=== PATIENT | female | born 2000 | race Caucasian/White ===

== ENCOUNTER → 2018-04-23 14:41 | Outpatient (CLI) | payer MEDICAID, SELFPAY ==
[2016-12-05 22:18] VITALS: BMI 23.5
[2018-04-23 18:14] LABS: Vitamin D,25 Hydroxy 19.9 ng/mL (29.95-100.01)
[2018-04-23 20:42] LABS: Chlamydia Trachomatis by PCR Negative (Negative); Neisserai gonorrhoeae by PCR Negative (Negative); Probe Check PASS; Sample Adequacy Control PASS; Specimen Processing Control PASS
--- OUTSIDE RECORDS SUMMARY | 2018-06-09 20:23 | XMS RPT_ITS ---
:2000 Author Organization [facility] Care Team Providers Name Role Phone VERENICE OWENS Attending Unavailable REFERRED, SELF Referring Unavailable VERENICE OWENS Primary Care Unavailable Leighann Trujillo Attending Unavailable Verenice Owens Primary Care Unavailable Stu Andrade Attending Unavailable PROBLEMS PROBLEMS DATE TYPE CONDITION / CODE ATTENDING STATUS SOURCE 04/24/2018 Unknown Z11.3 - Encounter Colleen Trujillo for screening for [facility] infections with a [facility] Repository sexual mode of transmission / Z11.3(ICD-10) PROCEDURES PROCEDURES No Procedure Records FoundRESULTS RESULTS DISCHARGE INSTRUCTION Observed: 06/05/2018 Status: F Source: MEÑO 5:44 AM [facility] REPOSITORY [facility] Medical Records Department [address] [place] [address] Discharge Instruction 06/05/18 0035 MR#: [id number] Acct: [id number] Name: SAMANTHA PEACE I Rep #: [id number] : 2000 18 From: Stu Andrade MD PCP: Verenice Owens MD Status: DEP ER ED Disposition - Plan for ED Patient: Disposition: Home or Assisted Living Chief Complaint: Chest Pain Instructions: ED Chest Pain Costochondritis Referrals: Verenice Owens MD [Primary Care Provider] - What to do if you have Problems For any increased pain, shortness of breath, bleeding, nausea or vomiting, chest pain, or any unexpected problems, contact your Primary Care Provider. Call [facility] ([phone]) or report to the closest Emergency Room. Call 911 if necessary. 06/05/18 0544 <Electronically signed by Stu Andrade MD> Date Stu Andrade MD Cosigner Signature (If Indicated): Date CC: Verenice Owens MD EMERGENCY DEPARTMENT Observed: 06/05/2018 Status: F Source: NORRIS SUMMARY 5:44 AM [facility] Medical Records Department [address] [facility] [place] [address] Emergency Department Summary 06/05/18 0001 MR#: [id number] Acct: [id number] Name: SAMANTHA PEACE I Rep #: [id number] : 2000 18 From: Stu Andrade MD PCP: Verenice Owens MD Status: DEP ER - ER Visit Summary Date of Service: 06/05/18 Chief Complaint: [] Chest pain History of Present Illness: The patient is a 18 F complaining of chest pain since yesterday p.m. gradual onset at rest continuous stabbing sensation in her sternum region. Worsened by bending down. She tried Prilosec. No history of heart problems. She is never had a stress test. It hurts to push on it. Physical Examination: Vital signs reviewed General: Well-nourished well-developed Head: Normocephalic atraumatic Eyes: Pupils equal round and reactive to light extraocular movements intact ENT: TMs clear no hemotympanum no trauma Neck: Nontender full range of motion Cardiovascular: Regular rate rhythm no murmurs normal S1-S2 Respiratory: No distress clear to auscultation bilaterally chest tender to palpation sternal region. Abdomen: Soft nontender nondistended normal bowel sounds no masses Back: Nontender no CVA tenderness Extremities: Nontender active range of motion 4 extremities no trauma Skin: Normal color no trauma Neuro alert oriented cranial nerves II through XII intact normal strength sensation reflexes Test Results: [] Emergency Department Course and Treatment: [] EKG shows sinus rhythm at a rate of 100 without ischemic findings. Chest x-ray normal. CBC negative. Patient given Toradol IV. Elect lites unremarkable except for potassium 3.3. Troponin negative. Patient felt better after treatment. At this time is that she has costochondritis or nonspecific chest pain. I do not feel she needs to be admitted. Her heart score is low. She will follow-up as an outpatient Treatment Plan: [] Disposition: [] Impression: [] Costochondritis This note was generated with ChartITright dictation software. It may contain incorrect words, spelling, and punctuation that were not noted in review of the chart prior to signing ED Disposition - Plan for ED Patient: Chief Complaint: Chest Pain Referrals: Verenice Owens MD [Primary Care Provider] - What to do if you have Problems For any increased pain, shortness of breath, bleeding, nausea or vomiting, chest pain, or any unexpected problems, contact your Primary Care Provider. Call [facility] ([phone]) or report to the closest Emergency Room. Call 911 if necessary. 06/05/18 0544 <Electronically signed by Stu Andrade MD> Date Stu Andrade MD Cosigner Signature (If Indicated): Date CC: Verenice Owens MD CBC W/DIFF, AUTOMATED Collected: 06/04/2018 Status: F Source: NORRIS 11:40 PM [facility] REPOSITORY TYPE CODE TESTS RESULT OUT OF RANGE REFERENCE UNITS LAB L100.1000 4.4-11.0 K/mm3 Normal WBC 9.1 LAB L100.1200 4.2-5.4 M/mm3 Normal RBC 4.34 LAB L100.1300 12.0-15.0 g/dl Normal HGB 12.5 LAB L100.1400 37-47 % Normal HCT 37.3 LAB L100.1500 81-99 fL Normal MCV 85.9 LAB L100.1600 27.0-32.0 pg Normal MCH 28.8 LAB L100.1700 32-36 g/gl Normal MCHC 33.5 LAB L100.1810 11.6-14.6 % Normal RDW CV 13.4 LAB L100.1820 35.1-43.9 fl Normal RDW SD 41.7 LAB L100.1900 150-450 K/mm3 Normal PLT 263 LAB L100.2000 6.2-12.0 fl Normal MPV 8.8 LAB L100.2100 47-70 % Normal NEUT% 57.7 LAB L100.2200 19-41 % Normal LY% 34.1 LAB L100.2300 0-10 % Normal MONO% 6.2 LAB L100.2400 0-5 % Normal EO% 1.4 LAB L100.2500 0-1 % Normal BASO% 0.5 LAB L100.2550 0.0-0.9 % Normal IM GRAN % 0.100 Result Comment: IG% - Immature Granulocytes (promyelocytes, myelocytes and metamyelocytes) > 1% indicates that a LEFT SHIFT is Present. LAB L100.2620 2.0-7.7 X10 3/uL Normal Absolute Neut 5.3 LAB L100.2720 0.83-4.51 X10 3/ul Normal Absolute Lymph 3.12 Performed By: #### L100.0100, L500.2500, L501.4010 #### [facility] [address] [place], [address] BASIC METABOLIC Collected: 06/04/2018 Status: F Source: MEÑO HORNE (BMP) 11:40 PM [facility] REPOSITORY TYPE CODE TESTS RESULT OUT OF RANGE REFERENCE UNITS LAB L501.0100 74-106 mg/dL Normal GLU 88 Result Comment: Please note revised GLUCOSE reference range effective 2017. LAB L501.1000 7-18 mg/dL Normal BUN 9 LAB L501.1100 0.55-1.02 mg/dL Normal CREAT,SERUM 0.64 Result Comment: The validity of the calculated GFR AND GFRAA in patients over 70 years has not been determined. Clinical correlation is essential. LAB L501.1110 >60 mL/min Normal EST GFR 125 Result Comment: Non- GFR Calc LAB L501.1115 >60 mL/min Normal EST GFR - AA 152 Result Comment: GFR Calc LAB L501.1255 ml/min Normal Estimated CRCL 146.54 LAB L501.1300 10-20 RATIO BUN/CRE Normal 14.0 LAB L501.2200 8.5-10 mg/dL .1 CA Normal 8.9 LAB L501.5300 136-14 mmol/L 5 NA Normal 139 LAB L501.5600 3.5-5. mmol/L Low 1 K 3.3 LAB L501.5900 98-107 mmol/L High CL 108 LAB L501.6100 21.0-3 mmol/L 2.0 CO2 Normal 23.0 LAB L501.6200 5-15 GAP Normal 8 Performed By: #### L100.0100, L500.2500, L501.4010 #### [facility] [address] [place], [address] TROPONIN-I Collected: 06/04/2018 Status: F Source: MEÑO 11:40 PM [facility] REPOSITORY TYPE CODE TESTS RESULT OUT OF RANGE REFERENCE UNITS LAB L501.4010 <0.045 ng/mL Normal < 0.015 TROPONIN-I Result Comment: TROPONIN-I EXPECTED VALUES <0.045 Negative 0.045 - 0.590 Consistent with Cardiac Damage > OR = 0.600 Critical Value Not every elevated troponin is indicative of MN. These values should be used with clinical judgement in examining the patient's clinical picture for diagnosis. To establish a diagnosis of MN versus myocardial injury, there must be a demonstrated rise and/or fall in the troponin values, in addition to ischemic symptoms, EKG changes, new regional wall motion abnormality, and/or angiographical evidence. PLEASE NOTE: REFERENCE RANGES EDITED 17 Performed By: #### L100.0100, L500.2500, L501.4010 #### [facility] [address] [place], [place], [address] CHEST 1 VIEW Observed: 06/04/2018 Status: F Source: NORRIS (PORTABLE) 10:36 PM [facility] REPOSITORY [facility] Imaging Services [address] [place] [address] Chest 1 View (Portable) MR#: [id number] Acct: [id number] Name: SAMANTHA PEACE I Rep #: [id number] : 2000 F 18 From: Jessica Chavez MD PCP: Verenice Owens MD Status: PRE ER Study: Chest 1 View (Portable) Date of Exam: 06/04/18 Exam# [id number] Ordering Dr: Provider,Ed P. STUDY: X-RAY CHEST REASON FOR EXAM: Female, 18 years old. Chest pain TECHNIQUE: Single frontal view of the chest. COMPARISON: None. FINDINGS: The lungs are clear and expanded. There is no demonstrated pleural abnormality. Normal size heart. Normal mediastinum and vincent. Normal visualized pulmonary arteries. Normal visualized aortic arch and descending thoracic aorta. Normal visualized thoracic spine. Normal visualized ribs, clavicles, and shoulders. There is no demonstrated abnormality of the visualized soft tissue structures of the upper abdomen. RAD/Chest 1 View (Portable) IMPRESSION: No acute cardiopulmonary process. Electronically Signed: Jessica Chavez MD at 22:50 EST Tel , Service support , CC: ED PHYSICIAN PROVIDER; Verenice Owens MD Emr Analyst: Signed COMPLETE BLOOD COUNT Collected: 05/28/2018 Status: F Source: BRIANNE 2:22 PM [facility] REPOSITORY Order Comment: With differential. Is this specimen being sent to an external lab?->No TYPE CODE TESTS RESULT OUT OF REFERENCE UNITS RANGE LAB IWBC(LOINC 4.5-11.0 10E9/L ) WBC 7.8 LAB NRBC%(LOIN -1.0-0.0 % C) Nucleated RBC % 0.0 LAB RBC(LOINC) 4.00-4.90 10E12/L RBC 4.66 LAB IHGB(LOINC 12.0-15.0 g/dl ) Hemoglobin 13.6 LAB HCT(LOINC) 36.0-44.0 % Hematocrit 40.2 LAB MCV(LOINC) 80.0-100.0 fl MCV 86.3 LAB MCH(LOINC) 26.0-34.0 pg MCH 29.2 LAB MCHC(LOINC 31.0-37.0 % ) MCHC 33.8 LAB RDW(LOINC) 0.0-14.4 % RDW 13.1 LAB PLT(LOINC) 150-450 10E9/L Platelets 307 LAB MPV(LOINC) fl MPV 10.0 Result Comment: MPV is platelet range and age dependent LAB CMPLT(LOINC) NA Differential Complete Automated LAB %REYNA(LOINC) 35.0-6 % 6.0 % Neutrophils 63.5 LAB %LYM(LOINC) 24.0-4 % 4.0 % Lymphocytes 27.9 LAB %MONO(LOINC) 3.00-6 % .00 % Monocytes 5.40 LAB %EOS(LOINC) 0.00-3 % .00 % Eosinophils 1.90 LAB %BASO(LOINC) 0.00-1 % .00 % Basophils 1.00 LAB REYNA#(LOINC) NA Neutrophil # 5.0 LAB IG%(LOINC) % % Immature 0.30 granulocyte Result Comment: Immature Granulocyte Percent includes promyelocytes, myelocytes, and metamyelocytes. IG% > 1.0 indicates a left shift is present. With automated differentials, bands are included in the neutrophil count and not in the Immature Granulocyte Percent. Performed By: #### CBC #### [place] [address] LIPID PANEL Collected: 05/28/2018 Status: F Source: MURDOCK 2:22 PM [facility] REPOSITORY Order Comment: With differential. Is this specimen being sent to an external lab?->No TYPE CODE TESTS RESULT OUT OF REFERENCE UNITS RANGE LAB CHOL(LOINC 0-189 mg/dL ) Cholesterol 130 Result Comment: Acceptable <190 mg/dL Borderline 190-224 mg/dL Abnormal >224 mg/dL NOTE: Reference Range change effective 04/16/18 LAB TRIG(LOINC) 0-114 mg/dL Triglyceride 88 Result Comment: Acceptable <115 mg/dl Borderline 115-149 mg/dl Abnormal >149 mg/dl NOTE: Reference Range change effective 04/16/18 Result invalid if not a fasting specimen. LAB HDL(LOINC) mg/dL HDL Cholesterol 40 Result Comment: Acceptable >45 mg/dL Borderline 40-44 mg/dL Abnormal <40 mg/dL NOTE: Reference Range change effective 04/16/18 LAB LDL(LOINC) 0-119 mg/dl LDL Cholesterol 72 Result Comment: Acceptable <120 mg/dL Borderline 120-159 mg/dL Abnormal >159 mg/dl NOTE: Reference Range change effective 04/16/18 LAB NHDL(LOINC) 0-149 mg/dL Non-HDL Cholesterol 90 Result Comment: Acceptable <150 mg/dL Borderline 150-189 mg/dL Abnormal >189 mg/dl Performed By: #### LIPID #### [place] [address] T4,FREE Collected: 05/28/2018 Status: F Source: MURDOCK 2:22 PM [facility] REPOSITORY Order Comment: With differential. Is this specimen being sent to an external lab?->No TYPE CODE TESTS RESULT OUT OF RANGE REFERENCE UNITS LAB T4FR(LOINC) 0.8-1.4 ng/dL T4,Free 1.3 Result Comment: New Reference Ranges - effective 03/03/09. Performed By: #### T4FR #### [place] [id number] TSH Collected: 05/28/2018 Status: F Source: BRIANNE 2:22 PM [facility] REPOSITORY Order Comment: With differential. Is this specimen being sent to an external lab?->No TYPE CODE TESTS RESULT OUT OF RANGE REFERENCE UNITS LAB TSH(LOINC) 0.350-5.500 uIU/mL TSH 0.662 Performed By: #### TSH #### [facility] [address] [place], [place] [address] [address] PROGRESS NOTE Observed: 05/28/2018 Status: COMPLETED Source: BRIANNE 1:20 PM [facility] REPOSITORY Patient ID: Samantha Peace is a 18 y.o. female. Her chief complaint(s) include: 18 YEAR WELL CHILD (Skin problems. Anxiety/depression. Stomach problems.) Assessment 1. Routine general medical examination at a health care facility 2. Adjustment disorder with mixed anxiety and depressed mood 3. Gastroesophageal reflux disease without esophagitis 4. Weight gain Plan Samantha was seen today for 18 year well child. Diagnoses and all orders for this visit: Routine general medical examination at a health care facility - Behavioral/Emotional Assessment w Score - PHQ-9 - Lipid panel (Clinic Collect) Adjustment disorder with mixed anxiety and depressed mood - citalopram (CELEXA) 10 MG tablet; Take 1 Tab (10 mg) by mouth daily - Venipuncture - T4, free (Clinic Collect) - TSH (Clinic Collect) - Complete Blood Count with Diff (Clinic Collect) Gastroesophageal reflux disease without esophagitis - omeprazole (PRILOSEC) 20 MG capsule; Take 1 Cap (20 mg) by mouth daily Weight gain - T4, free (Clinic Collect) - TSH (Clinic Collect) Return in about 1 year (around 05/28/2019) for well check. Discussed getting back on medicine. Discussed needing counseling. Subjective HPI Comments: Working at [employer] 50 hours. Lives by self. Mom just got a liver transplant. Stomach hurts when she eats. No vomiting. Will have diarrhea with lots of dairy or fried food. Exhausted all the time. She is unaccompanied. 18 YEAR WELL CHILD Home: Samantha eats meals with family, has an adult to turn to for help and is permitted and able to make independent decisions. Education: She Is in the work force. Eating: Samantha eats breakfast. Samantha does not eat regular meals including fruits and vegetables, does not limit fast food, does not drink non-sweetened liquids and does not have a calcium source. Activities & Sports: She has friends and has a job. Drugs: She uses drugs (minimal) and uses alcohol (minimal). She does not use tobacco. Safety: She has a violence free home, has peer relationships free from violence and uses seat belt. Sex: Samantha is sexually active. Typically, she uses Depo-Provera injections as her current contraceptive method. Suicidality: She has depression and has anxiety. She has no suicidal ideation and has no homicidal ideation. Menstruation Menstruation: irregular periods (on depo) Output Urine and Stool Pattern: Urine and Stool Pattern: Normal stool pattern, normal urine pattern. Stool Consistency: soft Sleep Hours of sleep at a time: 8 Teen Anticipatory Guidance The following anticipatory guidance was reviewed during the visit: Nutrition: limit junk food/fast food and soft drinks. Safety: home safety. Health: age appropriate sleep habits, avoid situations where drugs and alcohol are present, learn about self and strengths and recognize and deal with stress. Screenings Previous Vaccine Reactions: No. Life events information was reviewed-no referral needed Hearing Vision Concerns: The caregiver has no concerns about the patient's hearing. The caregiver has no concerns about the patient's vision. Primary Care Review of Systems Objective Vital Signs 05/28/18 1312 BP: 139/78 Pulse: 104 Weight: 85.3 kg Height: 175.3 cm Body mass index is 27.77 kg/m . Physical Exam Constitutional: She appears well. She is active. No distress. HENT: Head: Atraumatic. Right Ear: Tympanic membrane and external ear normal. Left Ear: Tympanic membrane and external ear normal. Nose: Nose normal. Mouth/Throat: Mucous membranes are moist. Dentition is normal. Oropharynx is clear. Eyes: Conjunctivae and EOM are normal. No strabismus. Pupils are equal, round, and reactive to light. Neck: Normal range of motion. Neck supple. Thyroid normal. No neck adenopathy. Cardiovascular: Normal rate, regular rhythm, S1 normal and S2 normal. Pulses are palpable. Heart murmur not heard. Pulmonary/Chest: Breath sounds normal. No respiratory distress. Exhibits no deformity. Abdominal: Soft. Bowel sounds are normal. She exhibits no distension and no mass. There is no hepatosplenomegaly. There is no tenderness. Musculoskeletal: Normal range of motion. Back: She exhibits no scoliosis. Neurological: She is alert. She has normal strength. She exhibits normal muscle tone. Gait normal. Skin: No rash noted. No pallor. Skin is warm. Psychiatric: A little tearful. Vitals reviewed: Blood pressure 139/78, pulse 104, height 175.3 cm, weight 85.3 kg. VITAMIN D,25 HYDROXY Collected: 04/23/2018 Status: F Source: NORRIS 2:43 PM [facility] REPOSITORY TYPE CODE TESTS RESULT OUT OF REFERENCE UNITS RANGE LAB L506.1000 29.95-100.01 ng/mL Low Vitamin D 19.9 25-OH Result Comment: Vitamin D 25(OH) Status Range Deficiency <20 ng/mL (50nmol/L) Insuffciency 20 - 30 ng/mL (50 - 75 nmol/L) Sufficiency 30 - 100 ng/mL (75 - 250 nmol/L) Toxicity >100 ng/mL (>250 nmol/L) Performed By: #### L506.1000 #### [facility] [address] [place], [address] CT/NG [facility] BY PCR Collected: 04/23/2018 Status: F Source: NORRIS 2:10 PM [facility] REPOSITORY TYPE CODE TESTS RESULT OUT OF RANGE REFERENCE UNITS LAB L8200.2100 Negative Normal Chlam Negative Trac PCR LAB L8200.2200 Negative Normal NG by Negative PCR Performed By: #### L8200.2000 #### [facility] [address] [place], [address] ALLERGIES ALLERGIES DATE TYPE / CODE NAME / CODE REACTION SEVERITY SOURCE 06/04/2018 Drug No Known Unknown [place] Allergy/674571007(S Allergies/F0019 [facility]) 61947(RXNORM) Hospital Repository Miscellaneous NO KNOWN [place] Allergy/265691934(S ALLERGIES [facility]) Hospital Repository ENCOUNTERS ENCOUNTERS ADMIT/DISCHARGE ACCOUNT ADMITTING ENCOUNTER LOCATION SOURCE NUMBER CLASS 06/04/2018/06/05/19 [id number] Emergency [facility] ing:ED Repository 05/28/2018/05/28/19 [id number] Ambulatory Building:[address] Repository 04/23/2018 [id number] [facility] ing:WOBLAB Repository PAYERS PAYERS ENCOUNTER GUARANTOR PAYER SUBSCRIBER SOURCE 06/04/2018 SAMANTHA I YOUNG Primary SAMANTHA I MALACHI [address] Insurance:CARESOURCEP IDOB: [facility] Number: [id number] Hospital [address]Qhn: [phone] [id number] Repository [phone] () Date:2018-06-04 [address]ATTN: [place] [address]KW: 06/04/2018 Secondary NOT GIVENUNK [place] Insurance:SELF [facility]Y [facility]: Effective Repository Date:2018-06-04 05/28/2018 SAMANTHA YOUNG Primary SAMANTHA YOUNG [facility] IDOB: Insurance:CARESOURCEP IDOB: [facility] Number: [id number] Repository [facility] [id number] [place], [place] Date: [place], [place] [address]Xib: [phone] () 05/28/2018 Secondary SAMANTHA Ramos [facility] Insurance:CARESOURCEP IDOB: [facility] Number: [id number] Repository [id number] [facility] Date: [place] [address] 04/23/2018 SAMANTHA YOUNG [address] Primary SAMANTHA YOUNG [address] [place] Insurance:CARESOURCEP IDOB: [facility] Number: [id number] Hospital [address]Clt: [phone] [id number] Repository [phone] () Date:2018-04-23 [address]ATTN: [place] [address]TJ: 04/23/2018 Secondary NOT GIVENUNK Meño Insurance:SELF PAY [facility] Number: Effective Repository Date:2018-04-23
== END ==
PROVIDERS: Visit Provider Obstetrics & Gynecology
DX: Z11.3 Encounter for screening for infections with a predominantly sexual mode of transmission (principal)
CPT/HCPCS: 36415; 82306; 87491; 87591

== ENCOUNTER 2018-06-04 22:30 | Emergency (ER) | payer MEDICAID, SELFPAY ==
[2018-06-04 22:31] VITALS: BP 148/89; PULSE 103; RESP 18; TEMP 36.8; O2SAT 100; BMI 32.1
--- NOTE | 2018-06-04 22:36 | EKG12_ITS ---
Test Reason : CP Blood Pressure : / mmHG Vent. Rate : 100 BPM Atrial Rate : 100 BPM P-R Int : 118 ms QRS Dur : 072 ms QT Int : 324 ms P-R-T Axes : 063 086 056 degrees QTc Int : 417 ms Normal sinus rhythm Normal ECG Confirmed by RUFINA ROBINS, ALEKSANDAR ([id number]), sound editor HANNA CAMARENA ([id number]) on 06/07/2018 2:16:15 PM Referred By: JORDAN Confirmed By:ALEKSANDAR ALMARAZ MD
--- NOTE | 2018-06-04 22:39 | ED.RN ---
NO OLD EKGS IN MUSE
--- NOTE | 2018-06-04 22:40 | RAD_ITS ---
STUDY: X-RAY CHEST REASON FOR EXAM: Female, 18 years old. Chest pain TECHNIQUE: Single frontal view of the chest. COMPARISON: None. FINDINGS: The lungs are clear and expanded. There is no demonstrated pleural abnormality. Normal size heart. Normal mediastinum and vincent. Normal visualized pulmonary arteries. Normal visualized aortic arch and descending thoracic aorta. Normal visualized thoracic spine. Normal visualized ribs, clavicles, and shoulders. There is no demonstrated abnormality of the visualized soft tissue structures of the upper abdomen. RAD/Chest 1 View (Portable) IMPRESSION: No acute cardiopulmonary process. Electronically Signed: Jessica Chavez MD at 22:50 EST Tel , Service support ,
[2018-06-04 23:43] VITALS: PULSE 84; RESP 20; O2SAT 100
[2018-06-04 23:48] LABS: Absolute Lymphocyte Count 3.12 X10^3/ul (0.83-4.51); Absolute Neutrophil Count 5.3 X10^3/uL (2.0-7.7); Basophil# 0.05 X10^3/uL; Basophil% 0.5 % (0-1); Eosinophil# 0.13 X10^3/uL; Eosinophils% 1.4 % (0-5); Hematocrit 37.3 % (37-47); Hemoglobin 12.5 g/dl (12.0-15.0); Lymphocyte # 3.12 X10^3/ul (4.0); Lymphocyte % 34.1 % (19-41); Mean Corp Hgb Conc 33.5 g/gl (32-36); Mean Corpuscular Hgb 28.8 pg (27.0-32.0); Mean Corpuscular Volume 85.9 fL (81-99); Mean Platelet Vol. 8.8 fl (6.2-12.0); Monocyte# 0.57 X10^3/uL; Monocyte% 6.2 % (0-10); Neutrophil # 5.26 X10^3/uL (2.7-7.7); Neutrophil % 57.7 % (47-70); POSITIVE COUNT NO; POSITIVE DIFFERENTIAL NO; POSITIVE MORPHOLOGY NO; Platelet Count 263 K/mm3 (150-450); RBC Distribution Width CV 13.4 % (11.6-14.6); RBC Distribution Width SD 41.7 fl (35.1-43.9); Red Blood Count 4.34 M/mm3 (4.2-5.4); White Blood Count 9.1 K/mm3 (4.4-11.0)
--- NOTE | 2018-06-05 00:01 | ED.VISSUMM ---
- ER Visit Summary Date of Service: 06/05/18 Chief Complaint: [] Chest pain History of Present Illness: The patient is a 18 F complaining of chest pain since yesterday p.m. gradual onset at rest continuous stabbing sensation in her sternum region. Worsened by bending down. She tried Prilosec. No history of heart problems. She is never had a stress test. It hurts to push on it. Physical Examination: Vital signs reviewed General: Well-nourished well-developed Head: Normocephalic atraumatic Eyes: Pupils equal round and reactive to light extraocular movements intact ENT: TMs clear no hemotympanum no trauma Neck: Nontender full range of motion Cardiovascular: Regular rate rhythm no murmurs normal S1-S2 Respiratory: No distress clear to auscultation bilaterally chest tender to palpation sternal region. Abdomen: Soft nontender nondistended normal bowel sounds no masses Back: Nontender no CVA tenderness Extremities: Nontender active range of motion ?4 extremities no trauma Skin: Normal color no trauma Neuro alert oriented cranial nerves II through XII intact normal strength sensation reflexes Test Results: [] Emergency Department Course and Treatment: [] EKG shows sinus rhythm at a rate of 100 without ischemic findings. Chest x-ray normal. CBC negative. Patient given Toradol IV. Elect lites unremarkable except for potassium 3.3. Troponin negative. Patient felt better after treatment. At this time is that she has costochondritis or nonspecific chest pain. I do not feel she needs to be admitted. Her heart score is low. She will follow-up as an outpatient Treatment Plan: [] Disposition: [] Impression: [] Costochondritis This note was generated with Neurelis dictation software. It may contain incorrect words, spelling, and punctuation that were not noted in review of the chart prior to signing ED Disposition - Plan for ED Patient: Chief Complaint: Chest Pain Referrals: Verenice Pickett MD [Primary Care Provider] -
[2018-06-05 00:03] LABS: Anion Gap 8 (5-15); BUN 9 mg/dL (7-18); Calcium,Total 8.9 mg/dL (8.5-10.1); Chloride 108 mmol/L (98-107); Creatinine, Serum 0.64 mg/dL (0.55-1.02); EST Glomerular Filtration Rate 125 mL/min (>60); Est Glom Filt Rate - Afr Amer 152 mL/min (>60); Estimated Creatinine Clearance 146.54 ml/min; Glucose 88 mg/dL (74-106); Potassium 3.3 mmol/L (3.5-5.1); Sodium Level 139 mmol/L (136-145)
[2018-06-05] MEDS: Ketorolac 15 MG/ML Vial IV (00:10)
--- NOTE | 2018-06-05 00:35 | ED.DEP ---
ED Disposition - Plan for ED Patient: Disposition: Home or Assisted Living Chief Complaint: Chest Pain Instructions: ED Chest Pain Costochondritis Referrals: Verenice Pickett MD [Primary Care Provider] -
[2018-06-05 00:41] VITALS: BP 122/74; PULSE 71; RESP 16; O2SAT 100
--- NOTE | 2018-06-05 00:42 | ED.RN ---
THIS NURSE REVIEWED D/C INSTRUCTIONS WITH PT. PT VERBALIZED UNDERSTANDING OF INSTRUCTIONS. IV D/C. IV CATHETER INTACT. PT TOLERATED WELL. PT DENIES FURTHER NEEDS OR QUESTIONS AT THIS TIME
--- OUTSIDE RECORDS SUMMARY | 2018-08-07 00:03 | XMS RPT_ITS ---
[...] for [facility] with [facility] Repository sexual mode of transmission / Z11.3(ICD-10) PROCEDURES PROCEDURES No Procedure Records FoundRESULTS RESULTS DISCHARGE INSTRUCTION Observed: 06/05/2018 Status: F Source: MEÑO 5:44 AM [facility] HOSPITAL REPOSITORY [facility] Medical Records Department [address] [place] [address] Discharge Instruction 06/05/18 0035 MR#: [id number] Acct: [id number] Name: SAMANTHA PEACE I Rep #: [id number] : 2000 18 From: Stu Andrade MD [...] your Primary Care Provider. Call [facility] ([phone]) or report to the closest Emergency Room. Call 911 if necessary. 06/05/18 0544 <Electronically signed by Stu Andrade MD> Date Stu Andrade MD Cosigner Signature (If Indicated): Date CC: Verenice Owens MD EMERGENCY DEPARTMENT Observed: 06/05/2018 Status: F Source: [place] SUMMARY 5:44 AM [facility] Medical Records Department [address] [facility] [place] [address] Emergency Department Summary 06/05/18 0001 MR#: [id number] Acct: [id number] Name: SAMANTHA PEACE I Rep #: [id number] : 2000 18 From: Stu Andrade MD [...] [] Costochondritis This note was generated with PodPoster dictation software. It may contain incorrect words, [...] your Primary Care Provider. Call [facility] ([phone]) or report to the closest Emergency Room. Call 911 if necessary. 06/05/18 0544 <Electronically signed by Stu Andrade MD> Date Stu Andrade MD Cosigner Signature (If Indicated): Date CC: Verenice Owens MD CBC W/DIFF, AUTOMATED Collected: 06/04/2018 Status: F Source: [place] 11:40 PM [facility] REPOSITORY TYPE CODE TESTS RESULT OUT [...] Performed By: #### L100.0100, L500.2500, L501.4010 #### [facility] [address] [place], [address] BASIC METABOLIC Collected: 06/04/2018 Status: F Source: [place] (BMP) 11:40 PM [facility] REPOSITORY TYPE CODE TESTS RESULT OUT [...] Performed By: #### L100.0100, L500.2500, L501.4010 #### [facility] [address] [place], [address] TROPONIN-I Collected: 06/04/2018 Status: F Source: MEÑO 11:40 PM [facility] REPOSITORY TYPE CODE TESTS RESULT OUT OF RANGE REFERENCE UNITS LAB L501.4010 <0.045 ng/mL Normal < 0.015 TROPONIN-I Result Comment: TROPONIN-I EXPECTED VALUES <0.045 Negative 0.045 - 0.590 Consistent with Cardiac Damage > OR = 0.600 Critical Value Not every elevated troponin is indicative of CO. These values should be used with clinical judgement in examining the patient's clinical picture for diagnosis. To establish a diagnosis of CO versus myocardial injury, there must be a demonstrated rise and/or fall in the troponin values, in addition to ischemic symptoms, EKG changes, new regional wall motion abnormality, and/or angiographical evidence. PLEASE NOTE: REFERENCE RANGES EDITED 17 Performed By: #### L100.0100, L500.2500, L501.4010 #### [facility] [address] [place], [place], [address] CHEST 1 VIEW Observed: 06/04/2018 Status: F Source: [place] (PORTABLE) 10:36 PM [facility] HOSPITAL REPOSITORY [facility] Imaging Services [address] [place] [address] Chest 1 View (Portable) MR#: [id number] Acct: [id number] Name: SAMANTHA PEACE I Rep #: [id number] : 2000 F 18 From: Jessica Chavez MD PCP: Verenice Owens MD Status: PRE ER Study: Chest 1 View (Portable) Date of Exam: 06/04/18 Exam# [id number] Ordering Dr: Provider,Ed P. STUDY: X-RAY CHEST [...] CC: ED PHYSICIAN PROVIDER; Verenice Owens MD User Experience Architect: Signed COMPLETE BLOOD COUNT Collected: 05/28/2018 Status: F Source: [place] 2:22 PM [facility] REPOSITORY Order Comment: With differential. Is this [...] Granulocyte Percent. Performed By: #### CBC #### [place] [address] LIPID PANEL Collected: 05/28/2018 Status: F Source: [place] 2:22 PM [facility] REPOSITORY Order Comment: With differential. Is this [...] >189 mg/dl Performed By: #### LIPID #### [place] [address] T4,FREE Collected: 05/28/2018 Status: F Source: [place] 2:22 PM [facility] REPOSITORY Order Comment: With differential. Is this specimen being sent to an external lab?->No TYPE CODE TESTS RESULT OUT OF RANGE REFERENCE UNITS LAB T4FR(LOINC) 0.8-1.4 ng/dL T4,Free 1.3 Result Comment: New Reference Ranges - effective 03/03/09. Performed By: #### T4FR #### [place] [id number] TSH Collected: 05/28/2018 Status: F Source: [place] 2:22 PM [facility] REPOSITORY Order Comment: With differential. Is this specimen being sent to an external lab?->No TYPE CODE TESTS RESULT OUT OF RANGE REFERENCE UNITS LAB TSH(LOINC) 0.350-5.500 uIU/mL TSH 0.662 Performed By: #### TSH #### [facility] [address] [place], [place] [address] [address] PROGRESS NOTE Observed: 05/28/2018 Status: COMPLETED Source: [place] 1:20 PM [facility] REPOSITORY Patient ID: Samantha Peace is a [...] needing counseling. Subjective HPI Comments: Working at [employer] 50 hours. Lives by self. [...] D,25 HYDROXY Collected: 04/23/2018 Status: F Source: [place] 2:43 PM [facility] REPOSITORY TYPE CODE TESTS RESULT OUT OF REFERENCE UNITS RANGE LAB L506.1000 29.95-100.01 ng/mL Low Vitamin D 19.9 25-OH Result Comment: Vitamin D 25(OH) Status Range Deficiency <20 ng/mL (50nmol/L) Insuffciency 20 - 30 ng/mL (50 - 75 nmol/L) Sufficiency 30 - 100 ng/mL (75 - 250 nmol/L) Toxicity >100 ng/mL (>250 nmol/L) Performed By: #### L506.1000 #### [facility] [address] [place], [address] CT/NG [facility] BY PCR Collected: 04/23/2018 Status: F Source: [place] 2:10 PM [facility] REPOSITORY TYPE CODE TESTS RESULT OUT OF RANGE REFERENCE UNITS LAB L8200.2100 Negative Normal Chlam Negative Trac PCR LAB L8200.2200 Negative Normal NG by Negative PCR Performed By: #### L8200.2000 #### [facility] [address] [facility] [place], [address] ALLERGIES ALLERGIES DATE TYPE / CODE NAME / CODE REACTION SEVERITY SOURCE 06/04/2018 Drug No Known Unknown [place] Allergy/[id number](S Allergies/F0019 [facility]) 57463(RXNORM) Hospital Repository Miscellaneous NO KNOWN [place] Allergy/[id number](S ALLERGIES [facility] Hospital Repository ENCOUNTERS ENCOUNTERS ADMIT/DISCHARGE ACCOUNT ADMITTING ENCOUNTER LOCATION SOURCE NUMBER CLASS 06/04/2018/06/05/19 [id number] Emergency [facility] ing:ED Repository 05/28/2018/05/28/19 [id number] Ambulatory Building:[address] Repository 04/23/2018 [id number] [facility] ing:WOBLAB Repository PAYERS PAYERS ENCOUNTER GUARANTOR PAYER SUBSCRIBER SOURCE 06/04/2018 SAMANTHA I YOUNG Primary SAMANTHA I MALACHI [address] [place] Insurance:CARESOURCEP IDOB: [facility] Number: [id number] Hospital [address]Qyx: [phone] [id number] Repository [phone] () Date:2018-06-04 [address]ATTN: [place] [address]VF: 06/04/2018 Secondary NOT GIVENUNK [place] Insurance:SELF PAY [facility] Number: Effective Repository Date:2018-06-04 05/28/2018 SAMANTHA YOUNG Primary SAMANTHA YOUNG [facility] IDOB: Insurance:CARESOURCEP IDOB: [facility] Number: [id number] Repository [facility] [id number] [place], [place] Date: [place], [place] [address]Ccl: [phone] () 05/28/2018 Secondary SAMANTHA [facility] Insurance:CARESOURCEP IDOB: [facility] Number: [id number] Repository [id number] [facility] Date: [place] [address] 04/23/2018 SAMANTHA YOUNG [address] Primary SAMANTHA YOUNG [place] Insurance:CARESOURCEP IDOB: [facility] Number: [id number] Hospital [address]Mpy: [phone] [id number] Repository [phone] () Date:2018-04-23 [address]ATTN: [place] [address]JL: 04/23/2018 Secondary NOT GIVENUNK [place]ño Insurance:SELF PAY [facility] Number: Effective Repository Date:2018-04-23
== END 2018-06-05 00:43 | disposition home or self-care (01) ==
PROVIDERS: Emergency Provider Emergency Medicine; Family Provider Pediatrics; PCP Pediatrics
DX: M94.0 Chondrocostal junction syndrome [Tietze] (principal); K21.9 Gastro-esophageal reflux disease without esophagitis
CPT/HCPCS: 71045; 80048; 84484; 85025; 93005; 96374; 99284

== ENCOUNTER → 2018-07-16 14:39 | Outpatient (CLI) | payer MEDICAID, SELFPAY ==
[2018-07-16 20:14] LABS: Chlamydia Trachomatis by PCR Negative (Negative); Neisserai gonorrhoeae by PCR Negative (Negative); Probe Check PASS; Sample Adequacy Control PASS; Specimen Processing Control PASS
== END ==
PROVIDERS: Visit Provider Obstetrics & Gynecology
DX: N39.0 Urinary tract infection, site not specified (principal); Z11.3 Encounter for screening for infections with a predominantly sexual mode of transmission
CPT/HCPCS: 87086; 87088; 87491; 87591

== ENCOUNTER → 2018-09-10 | Outpatient (CLI) | payer MEDICAID, SELFPAY ==
[2018-09-10 15:30] LABS: Chlamydia Trachomatis by PCR Negative (Negative); Neisserai gonorrhoeae by PCR Negative (Negative); Probe Check PASS; Sample Adequacy Control PASS; Specimen Processing Control PASS
== END | disposition home or self-care (01) ==
PROVIDERS: Visit Provider Obstetrics & Gynecology
DX: Z11.3 Encounter for screening for infections with a predominantly sexual mode of transmission (principal)
CPT/HCPCS: 87491; 87591

== ENCOUNTER 2018-11-29 18:26 | Emergency (ER) | payer SELFPAY ==
[2018-11-29 18:27] VITALS: BP 122/65; PULSE 82; RESP 14; TEMP 35.8; O2SAT 100; BMI 27.0
--- NOTE | 2018-11-29 18:50 | RAD_ITS ---
STUDY: X-RAY - LEFT FOOT CLINICAL: Female, 18 years old. Fall TECHNIQUE: 3 view(s) of the foot. COMPARISON: None. FINDINGS: Soft tissue swelling is present. There is no evidence of fracture or dislocation. There are no significant degenerative changes. There are no radiodense foreign bodies. RAD/Foot min 3 Views IMPRESSION: No fracture or dislocation. Soft tissue swelling. Electronically Signed: Luan Chery, at 19:15 EDT Tel , Service support ,
--- NOTE | 2018-11-29 18:50 | RAD_ITS ---
STUDY: X-RAY - PELVIS AND LEFT HIP REASON FOR EXAM: Female, 18 years old. Fall TECHNIQUE: 3 views of the pelvis and hip. COMPARISON: None. FINDINGS: There is a non-specific bowel gas pattern. Normal visualized soft tissue structures. Normal bilateral iliac wings, sacroiliac joints and visualized sacrum. Normal bilateral superior and inferior pubic rami. Normal pubic symphysis. Normal bilateral ischial tuberosities. Normal visualized femoral head. Normal acetabulum. Normal hip joint. RAD/HIP, UNI W/ Pelvis 2-3 Views IMPRESSION: Normal x-ray examination of the pelvis and hip. Electronically Signed: Luan Chery, at 19:12 EDT Tel , Service support ,
[2018-11-29] MEDS: Naproxen 500 MG Tablet PO (19:11)
--- NOTE | 2018-11-29 21:01 | ED.DCSUM_ITS ---
- ER Visit Summary Date of Service: 11/29/18 Chief Complaint: Fall History of Present Illness: The patient is a 18 F who fell 2 days ago. She injured her left hip and left foot. She also complains of left low back pain. Denies any neurologic symptoms. Denies any bowel or bladder changes. Denies any history of orthopedic surgery. Denies any other complaints. Physical Examination: Afebrile and vital signs unremarkable. Alert and oriented. No acute distress. Head and neck atraumatic. Left hip is diffusely tender to palpation. Good range of motion. Negative logroll. Neurovascular intact distally. Dorsal left vacuum drier tender to palpation with ecchymosis. Otherwise unremarkable. Left lumbar spine tender to palpation over the paraspinal muscles. Test Results: X-rays of her hip and foot were negative. Emergency Department Course and Treatment: Patient treated with naproxen. X- rays were negative. I believe the patient has myofascial pain. Rest, ice, elevate. Anti-inflammatories for pain. Follow-up with primary care. Return for any new or worsening issues. Treatment Plan: As above Disposition: Discharge Impression: 1. Lumbar strain 2. Left hip pain 3. Left foot pain This note was generated with Skillshare dictation software. It may contain incorrect words, spelling, and punctuation that were not noted in review of the chart prior to signing ED Disposition - Plan for ED Patient: Referrals: Verenice Pickett MD [Primary Care Provider] -
--- NOTE | 2018-11-29 21:04 | ED.DEP ---
ED Disposition - Plan for ED Patient: Instructions: Sprain Foot Referrals: Verenice Pickett MD [Primary Care Provider] -
== END 2018-11-29 21:12 | disposition home or self-care (01) ==
LOC: ED 19:02
PROVIDERS: Emergency Provider Emergency Medicine; Family Provider Pediatrics; PCP Pediatrics
DX: S39.012A Strain of muscle, fascia and tendon of lower back, initial encounter (principal); M25.552 Pain in left hip; M79.672 Pain in left foot; W19.XXXA Unspecified fall, initial encounter; Y93.9 Activity, unspecified; Y92.9 Unspecified place or not applicable
CPT/HCPCS: 73502; 73630; 99283

== ENCOUNTER → 2019-02-24 14:26 | Outpatient (CLI) | payer OTHER, SELFPAY ==
[2019-02-24 17:43] LABS: Probe Check PASS; Sample Adequacy Control PASS; Specimen Processing Control PASS; Trichomonas Vag DNA by PCR POSITIVE (Negative)
[2019-02-24 19:01] LABS: Chlamydia Trachomatis by PCR Negative (Negative); Neisserai gonorrhoeae by PCR Negative (Negative); Probe Check PASS; Sample Adequacy Control PASS; Specimen Processing Control PASS
== END ==
PROVIDERS: Family Provider Pediatrics; PCP Pediatrics
DX: Z11.3 Encounter for screening for infections with a predominantly sexual mode of transmission (principal)
CPT/HCPCS: 87210; 87491; 87591; 87661

== ENCOUNTER 2019-10-15 21:44 | Emergency (ER) | payer OTHER, SELFPAY ==
[2019-10-15 21:45] VITALS: BP 151/95; PULSE 70; RESP 18; TEMP 36.1; O2SAT 97; BMI 32.2
--- NOTE | 2019-10-15 22:37 | ED.DCSUM_ITS ---
History of Present Illness Chief Complaint: GI Bleed Informant: Patient Narrative: She states that for the past 4 days she has had some rectal bleeding and pain. She has had a history of hemorrhoids in the past. She is seeing Dr. Chino in the past. Patient states that he has had problems with constipation. Though lately she has been more diarrhea. She states she has not been having a significant amount of diarrhea. She denies any abdominal pain or fevers. She has never seen a surgeon for her hemorrhoids. No history of colitis or inflammatory bowel conditions. Past Medical History - Allergies and Home Meds Allergies/Adverse Reactions: Allergies No Known Allergies Allergy (Verified 10/15/19 21:44) Primary Care Physician: Verenice Pickett MD [Primary Care Provider] - Smoking Status: Never smoker Review of Systems General: Denies: Chills, Fever, Sweats Eyes: Denies: Visual changes - bilaterally, Diplopia ENT: Denies: Rhinorrhea, Sore throat Cardiovascular: Denies: Chest pain, Palpitations Respiratory: Denies: Dyspnea, Cough, Dyspnea on exertion Gastrointestinal: Reports: Diarrhea, - - See history of present illness. Denies: Abdominal pain, Nausea, Vomiting, Constipation, Melena, Hematochezia Genitourinary: Denies: Dysuria, Hematuria, Frequency Musculoskeletal: Denies: Back pain, Extremity Pain Skin: Denies: Rash, Wounds Neurological: Denies: Headache, Weakness, Numbness Physical Exam Vital Signs/Narrative: Vital Signs Temp Pulse Resp BP Pulse Ox 10/15/19 21:45 97.0 F L 70 18 151/95 H 97 Inital Vital Signs reviewed: Yes General: Well nourished, Well developed, No Acute Distress Head: Normocephalic, Atraumatic Eyes: Perrl, EOMI ENT: Moist mucous membranes, No rhinorrhea Neck: Supple, Nontender Cardiovascular: Regular rate, Regular rhythm, No murmurs Respiratory: No distress, CTA bilaterally, Chest nontender Abdomen: Soft, Nontender, Nondistended, Normal bowel sounds Rectal: - - On rectal exam there is a large hemorrhoid. The hemorrhoid is actually already split open and there is clot coming out. Some of the clot was removed but limited removal due to patient's discomfort. Back: Nontender, Normal Inspection Extremities: Nontender, No edema Skin: Normal color, No rash Neurological: Alert, Oriented x3, Cranial nerves II-XII grossly intact, Normal Strength, Normal Sensation Psychological: Normal affect, Normal Mood Diagnostic/Tx/Re-eval - Medical Decision Making Harpreet Walls apply some lidocaine jelly. We will have her use Proctofoam HC. I will refer her to general surgery so she can get definitive care for this. She is to avoid sitting for long periods of time. She should avoid straining. ED Disposition - Plan for ED Patient: Disposition: Home or Assisted Living Diagnosis: Hemorrhoids, Rectal pain, Rectal bleeding Instructions: ED Hemorrhoids Prescriptions: Hydrocortisone/Pramoxine [Proctofoam-Hc Foam] 1 applicatio SC TID #1 canister Transmission Status: Pending to [facility] Referrals: Verenice Pickett MD [Primary Care Provider] - As Needed Valeria Hadley MD [STAFF PHYSICIAN] - (call for general surgery consult)
[2019-10-15] MEDS: Lidocaine 2% Jelly 1 APPLIC Tube TOPICAL (22:49)
[2019-10-15 22:51] VITALS: PULSE 77; O2SAT 98
== END 2019-10-15 22:52 | disposition home or self-care (01) ==
LOC: ED 22:47
PROVIDERS: Emergency Provider Emergency Medicine; PCP Pediatrics
DX: K64.9 Unspecified hemorrhoids (principal)
CPT/HCPCS: 99282; A4216

== ENCOUNTER → 2019-12-09 | Outpatient (CLI) | payer OTHER, SELFPAY ==
[2019-12-15 18:54] LABS: HPV Reflexed? NOT INDICATED
== END | disposition home or self-care (01) ==
LOC: LABSPEC 16:36
PROVIDERS: PCP Pediatrics; Visit Provider Obstetrics & Gynecology
DX: Z12.4 Encounter for screening for malignant neoplasm of cervix (principal)
CPT/HCPCS: 87491; 87591; 88175; G0145

== ENCOUNTER 2020-03-07 11:45 | Emergency (ER) | payer MEDICAID, SELFPAY ==
[2020-03-07 11:46] VITALS: BP 151/93; PULSE 105; RESP 17; TEMP 36.2; O2SAT 98; BMI 32.5
--- NOTE | 2020-03-07 12:16 | CT_ITS ---
STUDY: CT ABDOMEN AND PELVIS WITH CONTRAST REASON FOR EXAM: Female, 19 years old. ABDOMINAL PAIN AND VOMITING RADIATION DOSAGE (If Supplied By Facility): CTDIvol = ( 19.11 ) mGy, DLP = ( 1343.35 ) mGycm TECHNIQUE: Transaxial images were obtained from the dome of the diaphragm to the symphysis pubis without oral contrast. IV 100mL Isovue-370 was administered. Sagittal and coronal images were reconstructed. Individualized dose optimization techniques were used for this CT. COMPARISON: None. FINDINGS: The visualized lung bases are unremarkable. The visualized portions of the heart are within normal limits. There is decreased attenuation of the liver consistent with steatosis. Normal gallbladder and extrahepatic biliary system. Normal spleen. Normal pancreas. Normal bilateral adrenal glands. Normal right kidney. 2 small cysts in the midsection left kidney. Normal visualized stomach. Normal small intestine. Normal colon. There is non-visualization of the appendix. Normal abdominal aorta. Normal inferior vena cava. Normal retroperitoneum. Normal urinary bladder. Pessary in the vagina. There is a small umbilical hernia containing fat. Normal osseous structures. CT/Abdomen/Pelvis W IV Cont ONLY IMPRESSION: No acute abnormality. Suspect severe fatty infiltration of the liver. Clinical correlation is recommended. Electronically Signed: Deniz Gale MD at 14:10 EDT Tel , Service support ,
--- NOTE | 2020-03-07 12:18 | ED.DCSUM_ITS ---
History of Present Illness Chief Complaint: Abd Pain Informant: Patient Narrative: 1-year-old female with history of gastritis and GERD presents with epigastric pain after drinking alcohol yesterday. She states she vomited multiple times. There is some small amounts of blood tingeing in her sputum. Describes her pain as burning. She states he has had these problems for a very long time and she actually gave up alcohol previously because of the symptoms. She has had upper endoscopy which showed gastritis without an ulcer but this was distantly. She is on Prilosec daily. She denies fever, chills, diarrhea. She denies history of pancreatitis. She denies drug abuse. Past Medical History - Allergies and Home Meds Allergies/Adverse Reactions: Allergies No Known Allergies Allergy (Verified 03/07/20 11:45) Primary Care Physician: Verenice Pickett MD [STAFF PHYSICIAN] - Prior records reviewed: Yes Past Medical History: - - Arthritis, GERD Surgical History: noncontributory Lives: With Family Smoking Status: Never smoker Alcohol: None Drugs: None Review of Systems General: Denies: Chills, Fever, Sweats Eyes: Denies: Visual changes - bilaterally, Diplopia ENT: Denies: Rhinorrhea, Sore throat Cardiovascular: Denies: Chest pain, Palpitations Respiratory: Denies: Dyspnea, Cough, Dyspnea on exertion Gastrointestinal: Reports: Abdominal pain, Nausea, Vomiting Genitourinary: Denies: Dysuria, Hematuria, Frequency Musculoskeletal: Denies: Back pain, Extremity Pain Skin: Denies: Rash, Wounds Neurological: Denies: Headache, Weakness, Numbness Physical Exam Vital Signs/Narrative: Vital Signs Temp Pulse Resp BP Pulse Ox 03/07/20 11:46 97.2 F L 105 H 17 151/93 H 98 Inital Vital Signs reviewed: Yes General: Well nourished, Acute Distress Head: Normocephalic, Atraumatic Eyes: Perrl, EOMI. Negative for: Scleral icterus ENT: Moist mucous membranes, No rhinorrhea Cardiovascular: Regular rate, Regular rhythm Abdomen: Soft, Nondistended, Tender - Very mild epigastric tenderness. Negative for: Guarding Extremities: Nontender, No edema Skin: Normal color. Negative for: Jaundice Neurological: Alert, Oriented x3 Psychological: Normal affect, Normal Mood Diagnostic/Tx/Re-eval Clinical Impression(s) from Imaging Studies Abdomen/Pelvis CT 03/07/20 12:16 IMPRESSION: No acute abnormality. Suspect severe fatty infiltration of the liver. Clinical correlation is recommended. Electronically Signed: Deniz Gale MD at 14:10 EDT Tel , Service support , Laboratory Data 03/07/20 03/07/20 03/07/20 12:01 12:01 12:25 WBC 8.9 RBC 4.53 Hgb 13.4 Hct 40.5 MCV 89.4 MCH 29.6 MCHC 33.1 RDW Std Deviation 41.8 RDW Coeff of Adalberto 12.8 Plt Count 368 MPV 9.6 Immature Gran % (Auto) 0.300 Neut % (Auto) 60.1 Lymph % (Auto) 32.6 Woodson % (Auto) 5.1 Eos % (Auto) 1.2 Baso % (Auto) 0.7 Absolute Neuts (auto) 5.3 Absolute Lymphs (auto) 2.90 Nucleated RBC % 0 Sodium 138 Potassium 4.3 Chloride 108 H Carbon Dioxide 23.0 Anion Gap 7 BUN 6 L Creatinine 0.69 Estim Creat Clear Calc 134.79 Est GFR (MDRD) Af Amer 136 Est GFR (MDRD) Non-Af 113 BUN/Creatinine Ratio 8.7 L Glucose 91 Calcium 9.3 Total Bilirubin 0.80 AST 97 H ALT 113 H Alkaline Phosphatase 117 Total Protein 7.9 Albumin 3.8 Globulin 4.1 Albumin/Globulin Ratio 0.9 Lipase 81 Urine Color Yellow Urine Clarity Sl. Cloudy Urine pH 7.0 Ur Specific [place] 1.015 Urine Protein 30 H Urine Glucose (UA) Normal Urine Ketones Negative Urine Occult Blood 25 H Urine Nitrite Negative Urine Bilirubin Negative Urine Urobilinogen 4 H Ur Leukocyte Esterase 500 H Urine Test Negative Clinical Impression(s) from Imaging Studies Abdomen/Pelvis CT 03/07/20 12:16 IMPRESSION: No acute abnormality. Suspect severe fatty infiltration of the liver. Clinical correlation is recommended. Electronically Signed: Deniz Gale MD at 14:10 EDT Tel , Service support , Laboratory Data 03/07/20 03/07/20 03/07/20 12:01 12:01 12:25 WBC 8.9 RBC 4.53 Hgb 13.4 Hct 40.5 MCV 89.4 MCH 29.6 MCHC 33.1 RDW Std Deviation 41.8 RDW Coeff of Adalberto 12.8 Plt Count 368 MPV 9.6 Immature Gran % (Auto) 0.300 Neut % (Auto) 60.1 Lymph % (Auto) 32.6 Woodson % (Auto) 5.1 Eos % (Auto) 1.2 Baso % (Auto) 0.7 Absolute Neuts (auto) 5.3 Absolute Lymphs (auto) 2.90 Nucleated RBC % 0 Sodium 138 Potassium 4.3 Chloride 108 H Carbon Dioxide 23.0 Anion Gap 7 BUN 6 L Creatinine 0.69 Estim Creat Clear Calc 134.79 Est GFR (MDRD) Af Amer 136 Est GFR (MDRD) Non-Af 113 BUN/Creatinine Ratio 8.7 L Glucose 91 Calcium 9.3 Total Bilirubin 0.80 AST 97 H ALT 113 H Alkaline Phosphatase 117 Total Protein 7.9 Albumin 3.8 Globulin 4.1 Albumin/Globulin Ratio 0.9 Lipase 81 Urine Color Yellow Urine Clarity Sl. Cloudy Urine pH 7.0 Ur Specific [place] 1.015 Urine Protein 30 H Urine Glucose (UA) Normal Urine Ketones Negative Urine Occult Blood 25 H Urine Nitrite Negative Urine Bilirubin Negative Urine Urobilinogen 4 H Ur Leukocyte Esterase 500 H Urine Test Negative - Medical Decision Making Patient presents with epigastric burning after drinking alcohol. She is given IV fluids, morphine, Zofran, IV Pepcid. She feels improved after this. Her lab work shows a slight bump in her LFTs. Bilirubin is normal. CT abdomen pelvis is negative. Patient is counseled that she needs to abstain from drinking if this is causing his symptoms. She is counseled on trigger foods. She was given a prescription for Zofran and Pepcid for home. She will follow-up with her GI doctor for upper endoscopy as needed. She given return precautions. Patient stable for discharge at this time. Impression: 1. Epigastric pain 2. Nausea/vomiting ED Disposition - Plan for ED Patient: Disposition: Home or Assisted Living Instructions: ED PEPTIC ULCER vs GASTRITIS Prescriptions: Famotidine [Pepcid] 20 mg PO DAILY PRN #30 tab PRN Reason: acid reflux Transmission Status: Received by [facility] Ondansetron [Zofran Odt] 4 mg PO Q8H PRN PRN #20 tab PRN Reason: Nausea Transmission Status: Received by [facility] Referrals: Verenice Pickett MD [STAFF PHYSICIAN] -
[2020-03-07] MEDS: 0.9% Normal Saline 1,000 ML 1000 ML IV (12:27)
[2020-03-07] MEDS: Morphine 4 MG/ML Syringe IV (12:27)
[2020-03-07] MEDS: Ondansetron 4 MG/2 ML Vial IV (12:28)
[2020-03-07 12:40] LABS: Absolute Neutrophil Count 5.3 X10^3/uL (2.0-7.7); Basophil# 0.06 X10^3/uL; Basophil% 0.7 % (0-1); Eosinophil# 0.11 X10^3/uL; Eosinophils% 1.2 % (0-5); Hematocrit 40.5 % (37-47); Hemoglobin 13.4 g/dL (12.0-15.0); Lymphocyte % 32.6 % (19-41); Mean Corp Hgb Conc 33.1 g/dL (32-36); Mean Corpuscular Hgb 29.6 pg (27.0-32.0); Mean Corpuscular Volume 89.4 fL (81-99); Mean Platelet Vol. 9.6 fl (6.2-12.0); Monocyte# 0.45 X10^3/uL; Monocyte% 5.1 % (0-10); NRBC Flagged by Analyzer 0 % (0-5); Neutrophil # 5.34 X10^3/uL (2.7-7.7); Neutrophil % 60.1 % (47-70); Platelet Count 368 K/mm3 (150-450); RBC Distribution Width CV 12.8 % (11.6-14.6); RBC Distribution Width SD 41.8 fl (35.1-43.9); Red Blood Count 4.53 M/mm3 (4.2-5.4); White Blood Count 8.9 K/mm3 (4.4-11.0)
[2020-03-07 12:44] LABS: ALB/GLOB Ratio 0.9 RATIO (0.9-2.4); AST(SGOT) 97 U/L (15-37); Alanine Aminotransfer ALT/SGPT 113 U/L (13-56); Albumin, Serum 3.8 g/dL (3.2-5.0); Alkaline Phosphatase 117 U/L (45-117); Anion Gap 7 (5-15); BUN 6 mg/dL (7-18); BUN/Creat Ratio 8.7 RATIO (10-20); Calcium,Total 9.3 mg/dL (8.5-10.1); Chloride 108 mmol/L (98-107); Creatinine, Serum 0.69 mg/dL (0.55-1.02); EST Glomerular Filtration Rate 113 mL/min (>60); Est Glom Filt Rate - Afr Amer 136 mL/min (>60); Estimated Creatinine Clearance 134.79 ml/min; Globulin 4.1 g/dL (2.2-4.2); Glucose 91 mg/dL (74-106); Lipase 81 U/L (73-393); Potassium 4.3 mmol/L (3.5-5.1); Protein, Total 7.9 g/dL (6.4-8.2); Sodium Level 138 mmol/L (136-145)
[2020-03-07 13:10] LABS: Color, Urine Yellow (Yellow); Glucose, Dipstick Normal (Normal); Ketone-Dipstick Negative (Negative); Leukocyte Esterase-Dipstick 500 /ul (Negative); Nitrite-Dipstick Negative (Negative); Occult Blood-Urine 25 /ul (Negative); Protein-Dipstick 30 mg/dl (Negative); Specific Gravity, Urine 1.015 (1.002-1.030); Urine Bilirubin Dipstick Negative (Negative); Urine Clarity Sl. Cloudy (Clear); Urine Urobilinogen 4 mg/dl (Normal)
[2020-03-07 13:15] LABS: Internal QC Validated? YES +Cl - CLEAR BKGD; Pregnancy, Urine Negative Negative
[2020-03-07] MEDS: Famotidine 200 MG/20 ML MDV 20 MG in 0.9% Normal Saline (Pres. free 8 ML 300 MG IV (13:58)
== END 2020-03-07 14:49 | disposition home or self-care (01) ==
PROVIDERS: Emergency Provider Student in an Organized Health Care Education/Training Program
DX: R10.13 Epigastric pain (principal); R11.2 Nausea with vomiting, unspecified; K21.9 Gastro-esophageal reflux disease without esophagitis; M19.90 Unspecified osteoarthritis, unspecified site; Z87.19 Personal history of other diseases of the digestive system; Z79.899 Other long term (current) drug therapy
CPT/HCPCS: 74177; 80053; 81002; 81025; 83690; 85025; 96361; 96374; 96375; 99283; J7030; Q9967; A4216; J2405; J3490

== ENCOUNTER 2020-06-16 19:33 | Emergency (ER) | payer MEDICAID, SELFPAY ==
[2020-06-16 19:34] VITALS: BP 131/62; PULSE 100; RESP 18; TEMP 36.4; O2SAT 100; BMI 30.2
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
== END 2020-06-16 21:26 | disposition home or self-care (01) ==
PROVIDERS: Emergency Provider Emergency Medicine; PCP Family Medicine
DX: S76.011A Strain of muscle, fascia and tendon of right hip, initial encounter (principal); M25.561 Pain in right knee; V89.2XXA Person injured in unspecified motor-vehicle accident, traffic, initial encounter; Y93.9 Activity, unspecified; Y92.9 Unspecified place or not applicable; K21.9 Gastro-esophageal reflux disease without esophagitis; F90.9 Attention-deficit hyperactivity disorder, unspecified type; J45.909 Unspecified asthma, uncomplicated; Z79.899 Other long term (current) drug therapy
CPT/HCPCS: 73502; 73564; 99282

== ENCOUNTER → 2020-09-07 | Outpatient (CLI) | payer MEDICAID, SELFPAY ==
[2020-09-10 04:08] LABS: Chlamydia By Nucleic Acid AMP Positive (Negative)
[2020-09-10 12:50] LABS: Gonococcus By Nucleic Acid AMP Negative (Negative)
== END | disposition home or self-care (01) ==
PROVIDERS: PCP Family Medicine; Visit Provider Obstetrics & Gynecology
DX: Z11.3 Encounter for screening for infections with a predominantly sexual mode of transmission (principal)
CPT/HCPCS: 87491; 87591

== ENCOUNTER 2020-10-20 10:06 | Emergency (ER) | payer MEDICAID, SELFPAY ==
[2020-09-08 15:40] VITALS: BMI 30.1
[2020-10-20 10:07] VITALS: BP 130/72; PULSE 101; RESP 18; TEMP 36.2; O2SAT 98; BMI 28.9
--- NOTE | 2020-10-20 10:26 | ED.VIS.GI ---
HPI HPI - GI History of Present Illness Chief Complaint: Abd Pain Informant: patient Abdominal Pain/Flank Pain Onset: Today Context: Sudden Onset Timing: Continuous Quality: Stabbing Location: LUQ and Left Flank Worsened by: - (Standing) Relieved by: - (Laying down) Nausea/Vomiting/Emesis GI Symptom: Positive for Nausea; Negative for Vomiting Diarrhea/Melena/Hematochezia GI Symptom: Negative for Diarrhea, Melena and Hematochezia Associated Symptoms Associated Symptoms: Negative for Dysuria and Hematuria Narrative Narrative: Patient presents with abdominal pain that began today. Patient states she woke up with the pain this morning. Patient states it has been constant. Patient states the pain is stabbing. Patient states the pain is over the left upper quadrant and radiates into her back. Patient states the pain is worse with standing and better when she lays down. Patient admits to some nausea but denies any vomiting. Patient denies any diarrhea, melena, or hematochezia. Patient denies any dysuria or hematuria. Patient states she is on the NuvaRing and does not have menstrual cycles. [facility] Medical History (Updated 10/20/20 @ 11:[address] Arvind Summers, ) Asthma Depression with anxiety GERD (gastroesophageal reflux disease) IBS (irritable bowel syndrome) Home Medications citalopram 40 mg PO DAILY 01/01/16 [History Last Taken Unknown] omeprazole 20 mg PO DAILY 06/04/18 [History Last Taken Unknown] famotidine 20 mg PO DAILY PRN #30 tab 03/07/20 [Rx Last Taken Unknown] dextroamphetamine-amphetamine 20 mg PO DAILY 06/16/20 [History Last Taken Unknown] etonogestrel 0.12 mg-ethinyl estradiol 0.015 mg/24 hr vaginal ring vag ring VAGINAL 09/08/20 [History Last Taken Unknown] meloxicam 15 mg tablet 15 mg PO DAILY #30 tab 09/20/20 [Rx Last Taken Unknown] hydroxyzine HCl 25 mg PO DAILY 10/20/20 [History Last Taken Unknown] ondansetron 4 mg PO Q8H PRN PRN #10 tab 10/20/20 [Rx Last Taken Unknown] Allergy/AdvReac Type Severity Reaction Status Date / Time No Known Allergies Allergy Verified 10/20/20 10:06 Family History (Updated 09/08/20 @ 15:48 by Radha Serrano) Other Alcoholism Anxiety Arthritis Asthma DVT (deep venous thrombosis) Depression Diabetes Heart disease Hyperlipidemia Hypertension Kidney disease Liver disease Mental disorder Myocardial infarction Respiratory system disease Skin cancer Surgical History [place] teeth removed Social History household members: none housing: house Smoking Status: Never smoker alcohol intake: current alcohol intake frequency: a few times a month substance use type: marijuana what type of physical activity do you participate in: none do you feel safe at home: Yes ROS ROS ED Constitutional Constitutional ED: Denies chills or fever(s) Eyes Eyes: Denies blurry vision or change in vision ENT ENT ED: Denies rhinorrhea or sore throat Cardiovascular Cardiovascular: Denies chest pain or palpitations Respiratory/Chest Respiratory/Chest: Denies cough or dyspnea Gastrointestinal Gastrointestinal: Reports abdominal pain and nausea; Denies vomiting Genitourinary Genitourinary ED: Denies dysuria or hematuria Musculoskeletal Musculoskeletal: Reports back pain; Denies neck pain Integumentary Denies abscess or rash Neurologic Neurologic: Reports headache(s); Denies weakness Allergic/Immunologic Allergic/Immunologic ED: Denies mouth swelling or urticaria EXAM Physical Exam Const Vital Signs: 10/20/20 10:07 Temperature 97.1 F L Temperature Source Temporal Pulse Rate 101 H Respiratory Rate 18 Blood Pressure 130/72 H Blood Pressure Mean 91 Pulse Ox 98 Oxygen Delivery Method Room Air Positive well nourished and well developed General Appearance ED: well developed HEENT normocephalic and atraumatic Eyes PERRL and EOMs intact bilaterally Neck supple and no JVD Chest Wall palpation of chest normal Resp normal respiratory effort and clear to auscultation bilaterally Effort and Inspection: Negative for respiratory distress Cardio regular rate, regular rhythm and no murmurs GI normal to inspection, nondistended, normoactive bowel sounds, soft to palpation and non-distended Auscultation: normoactive bowel sounds Palpation: soft and tender LUQ; Negative for guarding or rebound tenderness present Back/Spine General Back: CVA tenderness left Extremity normal to inspection General Extremety ED: Negative for edema or tenderness General Extremity: Negative for edema Neuro oriented x3, CN's II-XII intact bilaterally and no sensory deficits noted Sensorium / Orientation: awake and alert Motor Exam: strength 5/5 throughout Psych mental status grossly normal MDM MDM MDM Narrative Medical decision making narrative: Patient was given IV fluids, morphine, and Zofran. CBC and comprehensive metabolic profile were within normal limits. Lipase was normal. Serum hCG was negative. Urinalysis does not show any evidence of urinary tract infection. CT scan of the abdomen and pelvis was obtained. There is no acute intra-abdominal process. This was interpreted by the radiologist and reviewed by myself. Patient states she had minimal improvement of her pain with morphine. Patient was given a dose of Toradol. Lab Data Attestation: I reviewed the patient's lab results. Labs: Laboratory Results - last 24 hr 10/20/20 10/20/20 10/20/20 10:32 10:35 10:35 WBC 8.2 RBC 4.56 Hgb 13.4 Hct 40.0 MCV 87.7 MCH 29.4 MCHC 33.5 RDW Std Deviation 39.6 RDW Coeff of Adalberto 12.3 Plt Count 335 MPV 8.8 Immature Gran % (Auto) 0.400 Neut % (Auto) 61.3 Lymph % (Auto) 30.6 [place] % (Auto) 5.3 Eos % (Auto) 1.5 Baso % (Auto) 0.9 Absolute Neuts (auto) 5.0 Absolute Lymphs (auto) 2.49 Nucleated RBC % 0 Sodium 139 Potassium 4.1 Chloride 108 H Carbon Dioxide 27.0 Anion Gap 4 L BUN 9 Creatinine 0.76 Estim Creat Clear Calc 121.34 Est GFR (MDRD) Af Amer 122 Est GFR (MDRD) Non-Af 101 BUN/Creatinine Ratio 11.9 Glucose 92 Calcium 9.1 Total Bilirubin 0.80 AST 34 ALT 51 Alkaline Phosphatase 101 Total Protein 7.7 Albumin 3.6 Globulin 4.1 Albumin/Globulin Ratio 0.9 Lipase 70 L Serum , Qual Urine Color Yellow Urine Clarity Sl. Cloudy Urine pH 8.0 Ur Specific [place] 1.010 Urine Protein Negative Urine Glucose (UA) Normal Urine Ketones Negative Urine Occult Blood Negative Urine Nitrite Negative Urine Bilirubin Negative Urine Urobilinogen Normal Ur Leukocyte Esterase 25 H Urine RBC 0 SEEN Urine WBC 0-5 SEEN Ur Squamous Epith Cells 0-5 SEEN Urine Bacteria 0 SEEN Urine Mucus 0 SEEN 10/20/20 10:35 WBC RBC Hgb Hct MCV MCH MCHC RDW Std Deviation RDW Coeff of Adalberto Plt Count MPV Immature Gran % (Auto) Neut % (Auto) Lymph % (Auto) [place] % (Auto) Eos % (Auto) Baso % (Auto) Absolute Neuts (auto) Absolute Lymphs (auto) Nucleated RBC % Sodium Potassium Chloride Carbon Dioxide Anion Gap BUN Creatinine Estim Creat Clear Calc Est GFR (MDRD) Af Amer Est GFR (MDRD) Non-Af BUN/Creatinine Ratio Glucose Calcium Total Bilirubin AST ALT Alkaline Phosphatase Total Protein Albumin Globulin Albumin/Globulin Ratio Lipase Serum , Qual NEGATIVE Urine Color Urine Clarity Urine pH Ur Specific [place] Urine Protein Urine Glucose (UA) Urine Ketones Urine Occult Blood Urine Nitrite Urine Bilirubin Urine Urobilinogen Ur Leukocyte Esterase Urine RBC Urine WBC Ur Squamous Epith Cells Urine Bacteria Urine Mucus Radiography Diagnostic Testing: Radiology Impression Abdomen/Pelvis CT 10/20/20 11:05 IMPRESSION: Hepatomegaly and diffuse fatty infiltration of the liver. Electronically Signed: Marquis Summers MD at 11:37 EDT , Service support , Discharge Plan Triage Chief Complaint: Abd Pain ED Provider: Arvind Summers Dx/Rx/DC Orders Clinical Impression: Left flank pain Instructions: ED Abdominal Pain Unkn Cause Fem, ED Flank Pain, Uncertain Cause Prescriptions: New ondansetron [ondansetron] 4 MG tablet 4 mg PO Q8H PRN PRN (Reason: Nausea) Qty: 10 RF: 0 No Action etonogestrel-ethinyl estradiol 0.12-0.015 mg/24 hr ring vaginal RF: 0 citalopram 40 MG tablet 40 mg PO DAILY RF: 0 omeprazole 20 capsule,delayed release(DR/EC) 20 mg PO DAILY RF: 0 famotidine 20 MG tablet 20 mg PO DAILY PRN (Reason: acid reflux) Qty: 30 RF: 0 dextroamphetamine-amphetamine 20 MG tablet 20 mg PO DAILY RF: 0 hydroxyzine HCl 25 mg tablet 25 mg PO DAILY RF: 0 meloxicam [Mobic] 15 mg tablet 15 mg PO DAILY Qty: 30 RF: 0 Primary Care Provider: Radha Mantilla Referrals: Radha Mantilla MD [Primary Care Provider] - 3-5 Days Disposition Disposition: Home, self care
[2020-10-20 10:40] LABS: Bacteria 0 SEEN /hpf (None Seen); Mucous, Urine 0 SEEN /hpf (<or=2+); Red Blood Cells-Urine 0 SEEN /hpf (0-5)
[2020-10-20] MEDS: Morphine 4 MG/ML Syringe IV (10:41)
[2020-10-20] MEDS: Ondansetron 4 MG/2 ML Vial IV (10:41)
[2020-10-20] MEDS: 0.9% Normal Saline 1,000 ML 1000 ML IV (10:41)
[2020-10-20 10:42] LABS: Color, Urine Yellow (Yellow); Glucose, Dipstick Normal (Normal); Ketone-Dipstick Negative (Negative); Leukocyte Esterase-Dipstick 25 /ul (Negative); Nitrite-Dipstick Negative (Negative); Occult Blood-Urine Negative /ul (Negative); Protein-Dipstick Negative (Negative); Urine Bilirubin Dipstick Negative (Negative); Urine Clarity Sl. Cloudy (Clear); Urine Urobilinogen Normal (Normal)
[2020-10-20 10:44] LABS: Absolute Lymphocyte Count 2.49 X10^3/uL (0.83-4.51); Basophil# 0.07 X10^3/uL; Basophil% 0.9 % (0-1); Eosinophil# 0.12 X10^3/uL; Eosinophils% 1.5 % (0-5); Hemoglobin 13.4 g/dL (12.0-15.0); Lymphocyte # 2.49 X10^3/ul (0.83-4.51); Lymphocyte % 30.6 % (19-41); Mean Corp Hgb Conc 33.5 g/dL (32-36); Mean Corpuscular Hgb 29.4 pg (27.0-32.0); Mean Corpuscular Volume 87.7 fL (81-99); Mean Platelet Vol. 8.8 fl (6.2-12.0); Monocyte# 0.43 X10^3/uL; Monocyte% 5.3 % (0-10); NRBC Flagged by Analyzer 0 % (0-5); Neutrophil # 5.01 X10^3/uL (2.7-7.7); Neutrophil % 61.3 % (47-70); Platelet Count 335 K/mm3 (150-450); RBC Distribution Width CV 12.3 % (11.6-14.6); RBC Distribution Width SD 39.6 fl (35.1-43.9); Red Blood Count 4.56 M/mm3 (4.2-5.4); White Blood Count 8.2 K/mm3 (4.4-11.0)
[2020-10-20 10:49] LABS: Squamous Epithelial Cells - UA 0-5 SEEN /hpf (5-10); White Blood Cells 0-5 SEEN /hpf (0-5)
[2020-10-20 10:54] LABS: Internal QC Validated? YES +Cl - CLEAR BKGD; Pregnancy, Serum, hCG Quali. NEGATIVE Negative
[2020-10-20 11:03] LABS: ALB/GLOB Ratio 0.9 RATIO (0.9-2.4); AST(SGOT) 34 U/L (15-37); Alanine Aminotransfer ALT/SGPT 51 U/L (13-56); Albumin, Serum 3.6 g/dL (3.2-5.0); Alkaline Phosphatase 101 U/L (45-117); Anion Gap 4 (5-15); BUN 9 mg/dL (7-18); BUN/Creat Ratio 11.9 RATIO (10-20); Calcium,Total 9.1 mg/dL (8.5-10.1); Chloride 108 mmol/L (98-107); Creatinine, Serum 0.76 mg/dL (0.55-1.02); EST Glomerular Filtration Rate 101 mL/min (>60); Est Glom Filt Rate - Afr Amer 122 mL/min (>60); Estimated Creatinine Clearance 121.34 ml/min; Globulin 4.1 g/dL (2.2-4.2); Glucose 92 mg/dL (74-106); Lipase 70 U/L (73-393); Potassium 4.1 mmol/L (3.5-5.1); Protein, Total 7.7 g/dL (6.4-8.2); Sodium Level 139 mmol/L (136-145)
--- NOTE | 2020-10-20 11:05 | CT_ITS ---
STUDY: CT ABDOMEN AND PELVIS WITHOUT CONTRAST REASON FOR EXAM: Female, 20 years old. Left-sided abdominal pain. RADIATION DOSAGE (If Supplied By Facility): CTDIvol = ( 12.31 ) mGy, DLP = ( 732.06 ) mGycm TECHNIQUE: Transaxial images were obtained from the dome of the diaphragm to the symphysis pubis without oral contrast, and without intravenous contrast. Sagittal and coronal images were reconstructed. Individualized dose optimization techniques were used for this CT. COMPARISON: Comparison is made with prior examination dated 03/07/2020. FINDINGS: The visualized lung bases are unremarkable. The visualized portions of the heart are within normal limits. There is decreased attenuation of the liver consistent with steatosis. Mild hepatomegaly. Normal gallbladder and extrahepatic biliary system. Normal spleen. Normal pancreas. Normal bilateral adrenal glands. Normal right kidney. Stable left renal cysts. Normal visualized stomach. Normal small intestine. Normal colon. The appendix is visualized and appears normal. Normal abdominal aorta. Normal inferior vena cava. There is borderline retroperitoneal lymphadenopathy with enlarged nodes no greater than 10mm in the short axis diameter. Normal urinary bladder. Normal abdominal wall. Normal osseous structures. CT/Abdomen/Pelvis without Cont IMPRESSION: Hepatomegaly and diffuse fatty infiltration of the liver. Electronically Signed: Marquis Summers MD at 11:37 EDT , Service support ,
[2020-10-20 11:51] VITALS: BP 129/88; PULSE 75; RESP 16; O2SAT 100
[2020-10-20] MEDS: Ketorolac 30 MG/ML Syringe IV (11:57)
== END 2020-10-20 12:07 | disposition home or self-care (01) ==
PROVIDERS: Emergency Provider Emergency Medicine; PCP Family Medicine
DX: R10.9 Unspecified abdominal pain (principal); K21.9 Gastro-esophageal reflux disease without esophagitis; F41.8 Other specified anxiety disorders; K58.9 Irritable bowel syndrome, unspecified; J45.909 Unspecified asthma, uncomplicated; Z79.899 Other long term (current) drug therapy
CPT/HCPCS: 74176; 80053; 81001; 83690; 84703; 85025; 96361; 96374; 96375; 99283; J7030; A4216; J2405

== ENCOUNTER 2021-01-01 20:45 | Emergency (ER) | payer MEDICAID, SELFPAY ==
[2021-01-01 20:46] VITALS: BP 137/101; PULSE 90; RESP 15; TEMP 36.7; O2SAT 98; BMI 27.3
--- NOTE | 2021-01-01 20:58 | ED.RN ---
Just moved back and had seen a psychiatrist in [place] but has moved back. Has seen a therapist in the area before and okay with seeing [facility].
[2021-01-01] MEDS: 0.9% Normal Saline 1,000 ML 999 ML IV (22:13)
[2021-01-01] MEDS: DiphenhydrAMINE 50 MG/ML Syringe 25 MG IV (22:13)
[2021-01-01] MEDS: Metoclopramide 10 MG/2 ML Vial IV (22:14)
[2021-01-01 22:50] VITALS: PULSE 74; RESP 16; O2SAT 98
--- NOTE | 2021-01-01 22:50 | ED.RN ---
Mother reports the patient up and left, out of nowhere, last week and moved to [place] and stayed at [place] se[place] by the airport. States she just did it and said it was because she does not have any friends. Lost her job. Then, this week, came back home. Mother states she has been making emotional, decisions like this and is neurotic. Pt is resting with her eyes closed. Mother is aware still waiting on SW.
[2021-01-01 22:56] LABS: Amphetamine Urine VISTA POSITIVE (<1000 ng/mL); Barbiturate Urine VISTA NEGATIVE (< 200 ng/mL); Benzodiazepine Urine VISTA NEGATIVE (< 200 ng/mL); Cocaine Urine VISTA NEGATIVE (< 300 ng/mL); Ecstacy Urine VISTA NEGATIVE (< 500 ng/mL); Methadone Urine VISTA NEGATIVE (< 300 ng/mL); PCP Urine VISTA NEGATIVE (< 25 ng/mL); THC Urine VISTA POSITIVE (< 50 ng/mL); Vista UDS pH Range 6
[2021-01-01 23:11] LABS: Internal QC Validated? YES +Cl - CLEAR BKGD; Pregnancy, Serum, hCG Quali. NEGATIVE Negative
[2021-01-01 23:15] LABS: Anion Gap 5 (5-15); BUN 7 mg/dL (7-18); BUN/Creat Ratio 10.1 RATIO (10-20); Calcium,Total 9.5 mg/dL (8.5-10.1); Chloride 107 mmol/L (98-107); Creatinine, Serum 0.69 mg/dL (0.55-1.02); EST Glomerular Filtration Rate 112 mL/min (>60); Est Glom Filt Rate - Afr Amer 136 mL/min (>60); Estimated Creatinine Clearance 133.65 ml/min; Glucose 86 mg/dL (74-106); Potassium 4.1 mmol/L (3.5-5.1); Sodium Level 140 mmol/L (136-145)
[2021-01-01 23:17] LABS: Alcohol, Blood (Medical)-Serum < 3.0 mg/dL
[2021-01-01 23:35] LABS: Absolute Lymphocyte Count 3.53 X10^3/uL (0.83-4.51); Absolute Neutrophil Count 3.2 X10^3/uL (2.0-7.7); Basophil# 0.08 X10^3/uL; Basophil% 1.1 % (0-1); Eosinophil# 0.09 X10^3/uL; Eosinophils% 1.2 % (0-5); Hematocrit 38.9 % (37-47); Lymphocyte # 3.53 X10^3/ul (0.83-4.51); Lymphocyte % 46.9 % (19-41); Mean Corp Hgb Conc 33.4 g/dL (32-36); Mean Corpuscular Volume 86.6 fL (81-99); Mean Platelet Vol. 9.5 fl (6.2-12.0); Monocyte# 0.51 X10^3/uL; Monocyte% 6.8 % (0-10); NRBC Flagged by Analyzer 0 % (0-5); Neutrophil # 3.22 X10^3/uL (2.7-7.7); Neutrophil % 42.8 % (47-70); Platelet Count 350 K/mm3 (150-450); RBC Distribution Width CV 12.9 % (11.6-14.6); RBC Distribution Width SD 40.3 fl (35.1-43.9); Red Blood Count 4.49 M/mm3 (4.2-5.4); White Blood Count 7.5 K/mm3 (4.4-11.0)
--- NOTE | 2021-01-01 23:59 | EDS_ITS ---
HPI HPI - Psych History of Present Illness Chief Complaint: Depression Informant: patient Onset/Context/Timing Onset: Month(s) Context: Gradual Onset Timing: Continuous Relieved by: Nothing Associated Symptoms Associated Symptoms - Psych: Positive for Depressed, Decreased Interest and Hopelessness; Negative for Suicidal Thoughts, Visual Hallucinations and Auditory Hallucinations Narrative Narrative: Patient presents with worsening depression over the last couple days. Patient states she is becoming more disinterested in things. Patient states she is feeling hopeless. Patient denies any suicidal or homicidal ideations. Patient states she is feeling more anxious. Patient denies any visual or auditory hallucinations. Patient states she recently tried to move to [place] but states she had to come back home. Mother states that she sold a bunch of her things before she moved to [place] and when she ran out of money she came back home. Patient also admits to migraine headache. Patient admits to nausea but denies any vomiting. [facility] Medical History Anxiety Asthma Asthma Chest pain Chronic neck and back pain Depression Depression with anxiety Diarrhea Fatigue GERD (gastroesophageal reflux disease) Hemorrhoids IBS (irritable bowel syndrome) Knee pain Limb weakness Severe headache SOB (shortness of breath) Substance abuse Weight loss, abnormal Home Medications citalopram 40 mg PO DAILY 01/01/16 [History Last Taken Unknown] omeprazole 20 mg PO DAILY 06/04/18 [History Last Taken Unknown] dextroamphetamine-amphetamine [Adderall] 20 mg PO DAILY 06/16/20 [History Last Taken Unknown] hydroxyzine HCl 25 mg PO DAILY 10/20/20 [History Last Taken Unknown] famotidine 20 mg tablet 20 mg PO DAILY PRN tab 12/10/20 [History Last Taken Unknown] ondansetron HCl 4 mg tablet 4 mg PO Q8H PRN #10 tab 12/10/20 [Rx Last Taken Unknown] etonogestrel-ethinyl estradiol [NuvaRing] vag ring VAGINAL 01/01/21 [History Last Taken Unknown] Allergy/AdvReac Type Severity Reaction Status Date / Time No Known Allergies Allergy Verified 01/01/21 20:46 Family History (Updated 12/10/20 @ 16:15 by Janell Gonzalez) Other Alcoholism Anxiety Arthritis Asthma DVT (deep venous thrombosis) Depression Diabetes Epilepsy Heart disease Hyperlipidemia Hypertension Kidney disease Liver disease Mental disorder Myocardial infarction Respiratory system disease Skin cancer Surgical History [place] teeth removed Social History household members: none housing: house Smoking Status: Never smoker alcohol intake: current alcohol intake frequency: a few times a month substance use type: marijuana what type of physical activity do you participate in: none do you feel safe at home: Yes ROS ROS ED Constitutional Constitutional ED: Denies chills or fever(s) Eyes Eyes: Denies blurry vision or change in vision ENT ENT ED: Denies rhinorrhea or sore throat Cardiovascular Cardiovascular: Denies chest pain or palpitations Respiratory/Chest Respiratory/Chest: Denies cough or dyspnea Gastrointestinal Gastrointestinal: Denies nausea or vomiting Genitourinary Genitourinary ED: Denies dysuria or hematuria Musculoskeletal Musculoskeletal: Denies back pain or neck pain Integumentary Denies abscess or rash Neurologic Neurologic: Denies headache(s) or weakness Psychiatric Psychiatric: Reports anxiety and depression; Denies suicidal ideation or suicidal thoughts Allergic/Immunologic Allergic/Immunologic ED: Denies mouth swelling or urticaria EXAM Physical Exam Const Vital Signs: 01/01/21 20:46 01/01/21 22:50 Temperature 98.0 F Temperature Source Temporal Pulse Rate 90 74 Respiratory Rate 15 16 Blood Pressure 137/101 H Blood Pressure Mean 113 Pulse Ox 98 98 Oxygen Delivery Method Room Air Room Air Positive well nourished and well developed General Appearance ED: well developed HEENT normocephalic and atraumatic Neck supple and no JVD Resp normal respiratory effort and clear to auscultation bilaterally Cardio no murmurs Rate: regular rate Rhythm: regular rhythm GI non-tender and non-distended Auscultation: normoactive bowel sounds Palpation: soft Extremity normal to inspection General Extremety ED: Negative for edema or tenderness General Extremity: Negative for edema Neuro oriented x3, CN's II-XII intact bilaterally and no sensory deficits noted Sensorium / Orientation: alert Motor Exam: strength 5/5 throughout Psych mental status grossly normal Activity / Motor Behavior: appropriate eye contact Speech: soft Mood & Affect: depressed and flat affect Thought Content: No suicidality, No homicidality, No delusion(s) and No hallucination(s) Skin Rashes: no rashes MDM MDM MDM Narrative Medical decision making narrative: Patient was given IV fluids, Benadryl, and Reglan for her headache. CBC and basic metabolic profile were within normal limits. Urine tox screen is positive for amphetamines and cannabinoids. Serum alcohol level was negative. Serum was negative. COVID-19 rapid antigen was obtained and was negative. Patient is feeling better on reevaluation. Crisis counselor will be in to evaluate the patient. Lab Data Attestation: I reviewed the patient's lab results. Labs: Laboratory Results - last 24 hr 01/01/21 01/01/21 01/01/21 21:40 21:47 21:47 WBC 7.5 RBC 4.49 Hgb 13.0 Hct 38.9 MCV 86.6 MCH 29.0 MCHC 33.4 RDW Std Deviation 40.3 RDW Coeff of Adalberto 12.9 Plt Count 350 MPV 9.5 Immature Gran % (Auto) 1.200 H Neut % (Auto) 42.8 L Lymph % (Auto) 46.9 H [place] % (Auto) 6.8 Eos % (Auto) 1.2 Baso % (Auto) 1.1 H Absolute Neuts (auto) 3.2 Absolute Lymphs (auto) 3.53 Nucleated RBC % 0 Sodium 140 Potassium 4.1 Chloride 107 Carbon Dioxide 28.0 Anion Gap 5 BUN 7 Creatinine 0.69 Estim Creat Clear Calc 133.65 Est GFR (MDRD) Af Amer 136 Est GFR (MDRD) Non-Af 112 BUN/Creatinine Ratio 10.1 Glucose 86 Calcium 9.5 Serum , Qual Urine Opiates Screen NEGATIVE Urine Methadone Screen NEGATIVE Ur Barbiturates Screen NEGATIVE Ur Phencyclidine Scrn NEGATIVE Ur Amphetamines Screen POSITIVE H U Methamphetamin-MDMA NEGATIVE U Benzodiazepines Scrn NEGATIVE Urine Cocaine Screen NEGATIVE U Cannabinoids Screen POSITIVE H Ur Drug Screen Comment Ethyl Alcohol 01/01/21 01/01/21 21:47 21:47 WBC RBC Hgb Hct MCV MCH MCHC RDW Std Deviation RDW Coeff of Adalberto Plt Count MPV Immature Gran % (Auto) Neut % (Auto) Lymph % (Auto) [place] % (Auto) Eos % (Auto) Baso % (Auto) Absolute Neuts (auto) Absolute Lymphs (auto) Nucleated RBC % Sodium Potassium Chloride Carbon Dioxide Anion Gap BUN Creatinine Estim Creat Clear Calc Est GFR (MDRD) Af Amer Est GFR (MDRD) Non-Af BUN/Creatinine Ratio Glucose Calcium Serum , Qual NEGATIVE Urine Opiates Screen Urine Methadone Screen Ur Barbiturates Screen Ur Phencyclidine Scrn Ur Amphetamines Screen U Methamphetamin-MDMA U Benzodiazepines Scrn Urine Cocaine Screen U Cannabinoids Screen Ur Drug Screen Comment Ethyl Alcohol < 3.0 Discharge Plan Triage Chief Complaint: Depression ED Provider: Arvind Summers Dx/Rx/DC Orders Prescriptions: No Action famotidine [Pepcid] 20 mg tablet 20 mg PO DAILY PRN (Reason: acid reflux) RF: 0 ondansetron HCl [Zofran] 4 mg tablet 4 mg PO Q8H PRN (Reason: nausea and vomiting) Qty: 10 RF: 0 citalopram 40 MG tablet 40 mg PO DAILY RF: 0 omeprazole 20 capsule,delayed release(DR/EC) 20 mg PO DAILY RF: 0 dextroamphetamine-amphetamine [Adderall] 20 MG tablet 20 mg PO DAILY RF: 0 hydroxyzine HCl 25 mg tablet 25 mg PO DAILY RF: 0 etonogestrel-ethinyl estradiol [NuvaRing] 0.12-0.015 mg/24 hr Ring VAGINAL RF: 0 Primary Care Provider: Radha Mantilla
--- NOTE | 2021-01-02 00:07 | NURSING ---
called crisis at 0004
[2021-01-02 00:18] VITALS: BP 125/73; PULSE 82; RESP 16; O2SAT 97
[2021-01-02 02:13] VITALS: BP 117/70; PULSE 74; RESP 15; O2SAT 99
== END 2021-01-02 02:39 | disposition home or self-care (01) ==
PROVIDERS: Emergency Provider Emergency Medicine; PCP Family Medicine
DX: F32.9 Major depressive disorder, single episode, unspecified (principal); R51.9 Headache, unspecified; F41.9 Anxiety disorder, unspecified; J45.909 Unspecified asthma, uncomplicated; G89.29 Other chronic pain; K21.9 Gastro-esophageal reflux disease without esophagitis; K58.9 Irritable bowel syndrome, unspecified; Z87.19 Personal history of other diseases of the digestive system; Z79.899 Other long term (current) drug therapy
CPT/HCPCS: 80048; 80307; 82077; 84703; 85025; 87426; 96361; 96374; 96375; 99283; J7030; A4216

== ENCOUNTER → 2021-02-03 12:51 | Outpatient (CLI) | payer MEDICAID, SELFPAY | PROVIDERS: PCP Family Medicine; Visit Provider Obstetrics & Gynecology | DX: N76.0 Acute vaginitis (principal); A60.04 Herpesviral vulvovaginitis; Z11.3 Encounter for screening for infections with a predominantly sexual mode of transmission ==

== ENCOUNTER → 2021-04-22 | Outpatient (CLI) | payer MEDICAID, SELFPAY ==
[2021-04-26 00:07] LABS: Chlamydia By Nucleic Acid AMP Negative (Negative)
[2021-04-26 15:27] LABS: Gonococcus By Nucleic Acid AMP Negative (Negative)
[2021-04-27 16:43] LABS: HPV Reflexed? NOT INDICATED
== END | disposition home or self-care (01) ==
LOC: LABSPEC 15:36
PROVIDERS: PCP Family Medicine; Visit Provider Obstetrics & Gynecology
DX: Z12.4 Encounter for screening for malignant neoplasm of cervix (principal); Z11.3 Encounter for screening for infections with a predominantly sexual mode of transmission
CPT/HCPCS: 87491; 87591; 88175; G0145

== ENCOUNTER 2021-06-09 09:55 | Outpatient (CLI) | payer MEDICAID, SELFPAY ==
[2021-06-09 10:36] LABS: Hemoglobin A1c 5.2 % (3.8-5.6)
[2021-06-09 11:05] LABS: LDH 160 U/L (84-246)
[2021-06-10 15:08] LABS: Anti-Centromere B Ab <0.2 AI (0.0-0.9); Anti-Chromatin 0.2 AI (0.0-0.9); Anti-Jo <0.2 AI (0.0-0.9); Anti-Scleroderma-70 AB <0.2 AI (0.0-0.9); Anti-ribosomal P Antibodies <0.2 AI (0.0-0.9); RNP Ab <0.2 AI (0.0-0.9); SJOGREN'S Anti-SS-A test < 0.2 AI (0.0-0.9); SJOGREN'S Anti-SS-B test < 0.2 AI (0.0-0.9); Smith Ab <0.2 AI (0.0-0.9); Smith/RNP Ab <0.2 AI (0.0-0.9)
[2021-06-10 19:03] LABS: Anti-Mitochondrial AB <20.0 Units (0.0-20.0); Anti-dsDNA Ab 2 IU/mL (0-9)
[2021-06-14 21:07] LABS: Angiotensin Convert Enzyme 39 U/L (14-82); Ceruloplasmin 41.9 mg/dL (19.0-39.0); Cytoplasmic Ab (C-ANCA) <1:20 titer (Neg:<1:20); Endomysial Antibody IgA Negative (Negative); HEPATITIS B SURFACE AG Negative (Negative); Hepatitis A IgM Antibody Negative (Negative); Hepatitis B Core AB IgM Negative (Negative); Immunoglobulin A 228 mg/dL (87-352); Immunoglobulin E 29 IU/mL (6-495); Immunoglobulin G 1154 mg/dL (586-1602)
[2021-06-14 21:25] LABS: Anti-Smooth Muscle ABS 8 Units (0-19); Copper, Serum or Plasma 186 ug/dL (80-158); Hep C Antibodies <0.1 s/co ratio (0.0-0.9); Immunoglobulin M 78 mg/dL (26-217); Perinuclear Ab (P-ANCA) <1:20 titer (Neg:<1:20); t-Transglutaminase IgA <2 U/mL (0-3)
== END 2021-06-09 23:59 | disposition short-term general hospital (02) ==
LOC: LAB 09:58
PROVIDERS: PCP Family Medicine; Referring Provider Internal Medicine Gastroenterology; Visit Provider Internal Medicine Gastroenterology
DX: K31.84 Gastroparesis (principal); K58.9 Irritable bowel syndrome, unspecified
CPT/HCPCS: 36415; 80074; 82164; 82390; 82525; 82784; 82785; 83036; 83516; 83615; 86038; 86225; 86235; 86255; 86256

== ENCOUNTER 2021-07-06 07:07 | Outpatient (CLI) | payer MEDICAID, SELFPAY ==
--- NOTE | 2021-07-06 07:09 | US_ITS ---
STUDY: ABDOMINAL ULTRASOUND - RIGHT UPPER QUADRANT REASON FOR VISIT: Female, 21 years old FATTY LIVER -- MAN TECHNIQUE: Ultrasound evaluation of the right upper quadrant was performed with real-time and static scherer-scale imaging. TECHNICAL QUALITY: Adequate. COMPARISON: None. FINDINGS: Liver: The liver is enlarged and measures 22 cm. There is increased echogenicity consistent with fatty infiltration. The bile ducts are within normal limits. There is hepatic color flow. The direction of portal flow is hepatopetal. There is no demonstrated mass lesion. Gallbladder: Normal distended gallbladder. The gallbladder wall measures 1.9 mm. There is a negative sonographic Kirkpatrick''s sign. There is no pericholecystic fluid. There are no gallstones. Common Bile Duct (C.B.D.): The common bile duct measures 3.5 mm. Pancreas: Normal size of the head, body and tail of the pancreas. There is normal echogenicity of the pancreas. There is no demonstrated pancreatic mass or cyst. Right Kidney: Normal size of the right kidney. The right kidney measures 11 cm x 5.2 cm x 6 cm. Normal renal cortex. The right cortex measures 1.5 cm. There is no demonstrated renal mass or cyst. There is no right hydronephrosis. IMPRESSION: Hepatomegaly and diffuse fatty infiltration of the liver. Electronically Signed: Marquis Summers MD at 8:29 EST , STUDY: ABDOMINAL ULTRASOUND - ELASTOGRAPHY REASON FOR VISIT: Female, 21 years old. Hepatomegaly and fatty infiltration of the liver. MAN. TECHNIQUE: Liver stiffness measurements were obtained on a MoveinBlue 85 ultrasound machine using a CA 1-7 probe following the SRU guidelines. 3 measurements were obtained using a 2-D-SWE method. The IQR/M was 22% suggesting a quality data set. TECHNICAL QUALITY: Adequate. COMPARISON: None. FINDINGS: Liver: Hepatomegaly and diffuse fatty infiltration of the liver. Median liver stiffness measured 4.7 kPa. US/Abdomen Limited IMPRESSION: Liver stiffness measures 4.7 kPa compatible with F0 Metavir score. Electronically Signed: Marquis Summers MD at 8:31 EST ,
== END 2021-07-06 23:59 | disposition home or self-care (01) ==
LOC: US 07:08
PROVIDERS: PCP Family Medicine; Referring Provider Internal Medicine Gastroenterology; Visit Provider Internal Medicine Gastroenterology
DX: K75.81 Nonalcoholic steatohepatitis (NASH) (principal)
CPT/HCPCS: 76705; 76981

== ENCOUNTER 2021-07-13 10:09 | Day surgery (SDC) | payer MEDICAID, SELFPAY ==
[2021-07-13] VITALS (7 sets, daily range): BP systolic 113–134; BP diastolic 68–92; PULSE 97–109; RESP 16–18; TEMP 36.2–36.4; O2SAT 98–100; BMI 27.6
--- NOTE | 2021-07-13 | IMM_PTH ---
PATIENT: JANAK LY LOC: EN U#:[id number] AGE/SX: 21/F ROOM: RE07/13/[address]: Dr. Robin Sullivan DO : 2000 BED: DIS: 07/13/2021 SPEC #: [id number] RECD: 07/15/21 13:34 STATUS: SRINIVAS RESandro #: [id number] BENSON: 07/13/21 00:[address]: Robin Sullivan DEPT: IMMUNOHISTOCHEMISTRY RECD BY: Soumya Merino ENTERED: 07/15/21 13:35 SP TYPE: IMMUNO OTHR DR: Dr. Radha Mantilla MD Tissues: B - Stomach, NOS Procedures: H Pylori (initial) PHYSICIAN & INSTITUTION [place] [id number] SPECIMEN INFORMATION: Tissue Source: B ? Gastric body Clinical Info: Irritable bowel syndrome, fatty liver, nausea Specimen Number: [id number] CPT code: 73291 METHODOLOGY: Deparaffinized sections of prefer/formalin-fixed tissue or PAP/DQ stained slides are incubated with monoclonal/polyclonal antibodies/oligonucleotide probes. Localization is made via biotin free immunoperoxidase method. Appropriate controls are performed and reacted as expected. Results on target cell population are indicated in the following table: RESULTS: ANTIBODY / CLONE RESULT Block B H Pylori (polyclonal) negative These tests were developed and their performance characteristics determined by Laboratory. They may not have been cleared or approved by the U.S. Food and Drug Administration. The FDA has determined that such clearance or approval is not necessary. The above immunohistochemical/dualISH markers are ordered and reviewed by the Pathologist. INTERPRETATION: B. Gastric body, biopsy: Negative for Helicobacter pylori organisms. AM:kermit 07/18/2021
--- NOTE | 2021-07-13 | EGD_PTH ---
PATIENT: JANAK LY LOC: EN U#:[id number] AGE/SX: 21/F ROOM: RE07/13/[address]: Dr. Robin Sullivan DO : 2000 BED: DIS: 07/13/2021 SPEC #: [id number] RECD: 07/13/21 10:45 STATUS: SRINIVAS HERRERA #: [id number] BENSON: 07/13/21 00:[address]: Robin Sullivan DEPT: SURGICAL PATHOLOGY RECD BY: Fletcher Coleman ENTERED: 07/14/21 10:48 SP TYPE: EGD BIOPSY OT DR: Dr. Radha Mantilla MD Tissues: A - Duodenum, NOS B - Gastric mucous membrane C - Esophageal mucous membrane D - Esophageal mucous membrane Procedures: Special Stain Group II Surgery Specimen Level IV Alcian Blue/PAS (control) HEADER [place] [place] DIAGNOSIS: Irritable bowel syndrome, fatty liver, nausea TISSUE SUBMITTED: A ? Duodenum biopsy, B ? Gastric body biopsy, C ? Distal esophagus biopsy, D ? Random esophageal biopsy MICROSCOPIC DIAGNOSIS A. Duodenum, biopsy: Mild nonspecific chronic inflammation. B. Gastric body, biopsy: Chronic gastritis. See comment. C. Distal esophagus, biopsy: Gastroesophageal junctional mucosa with mild chronic inflammation. No evidence of goblet cell metaplasia. See comment. D. Esophagus, random biopsy: Fragments of benign squamous mucosa with no pathologic change. AM:kermit 07/15/2021 COMMENT B. The results of immunohistochemistry for Helicobacter pylori will be reported separately ([id number]). C. Alcian blue/PAS stain with matched control supports the above diagnosis. MICROSCOPIC DESCRIPTION Slides are reviewed. GROSS DESCRIPTION A - Received in fixative is one container labeled with the patient's name and designated duodenum biopsy. The specimen consists of multiple irregular fragments of light huerta soft tissue that in aggregate measure 1 x 0.3 x 0.1 cm. The specimen is totally submitted in one cassette. B - Received in fixative is one container labeled with the patient's name and designated gastric body biopsy. The specimen consists of multiple irregular fragments of light huerta soft tissue that in aggregate measure 1 x 0.5 x 0.1 cm. The specimen is totally submitted in one cassette. C - Received in fixative is one container labeled with the patient's name and designated distal esophagus biopsy. The specimen consists of two irregular fragments of light huerta soft tissue that in aggregate measure 0.6 x 0.3 x 0.1 cm. The specimen is totally submitted in one cassette. D - Received in fixative is one container labeled with the patient's name and designated random esophageal biopsy. The specimen consists of two irregular fragments of light huerta soft tissue that in aggregate measure 0.6 x 0.4 x 0.1 cm. The specimen is totally submitted in one cassette. / SJ:rg 07/14/2021 TC:3 CPT: 52445 x4, 20728
--- NOTE | 2021-07-13 10:43 | HP.PCM_ITS ---
History and Physical Date of Admission: 07/13/21 21 F who presents to the office today for Referred by PCP for evaluation of epigastric pain, reflux, nausea with induced emesis, decreased appetite r/t nausea, bloating, cramping, flatulence and urgent diarrhea occurring every other day with 4-5 instances a day. Aggravated by stress, milk/dairy, fatty/greasy foods, tight clothing. Additional medical history includes depression, migraine headaches, nausea without emesis, ADHD, bipolar, GERD, IBS-D, fatty liver. Family history includes mother with MAN requiring liver transplant. Colonoscopy performed 08.03.20 finding internal hemorrhoids. No additional abnormalities reported. EGD performed 07.14.20 finding gastritis. No additional abnormalities. Toxicology screen 01.02.21 positive for amphetamines and cannaboids. ROS Const Constitutional: No anorexia, fatigue, fever(s), weight change or sleep problems Eyes Eyes: No change in vision ENT ENT: No abnormal hearing, difficulty swallowing, mouth lesions, tongue swelling or throat swelling Resp Respiratory: No cough or shortness of breath Cardio Cardiology: No chest pain at rest, chest pain with exertion, shortness of breath or dyspnea on exertion Gastro GI: No difficulty swallowing Genitourinary-Female: No difficulty urinating or burning urination Musc Musculoskeletal: No joint pain, joint swelling, muscle weakness or decreased muscle mass Skin Skin: No hair loss in leg, yellowing of the eye, itchy eyes, rash, skin ulcer or skin swelling Neuro Neurology: No abnormal hearing, abnormal movements, confusion, unsteady gait/balance or memory loss Psych Psychiatric: No anxiety, No confusion and No memory loss Endo Endocrine: No fatigue or weight change Aller/Imm Allergy/Immunologic: No itchy eyes, throat swelling or tongue swelling Rich/Lymp Hematologic/Lymphatic: No easy bleeding, easy bruising or enlarged lymph nodes Exam Const General: cooperative and comfortable Nutritional Appearance: average body habitus and well nourished HENMT Head: normal to inspection Ears: hearing grossly normal bilaterally Nose: external nose normal Face and sinus: normal facial exam Mouth: oral mucosae normal Throat: posterior oropharynx normal Eyes General: appearance normal, both eyes and all related structures Neck Neck: normal visual inspection Chest Chest palpation & inspection: normal inspection of the chest and normal palpation of entire chest wall Resp Effort & Inspection: normal respiratory effort Auscultation: Bilateral: Clear to Auscultation Cardio Palpation: normal PMI Rate: regular rate Rhythm: regular rhythm GI Inspection: normal to inspection Auscultation: normal bowel sounds Percussion: normal to percussion Palpation: no hepatosplenomegaly Skin General: no rashes or lesions noted Neuro General: patient alert Extrem General: normal to inspection Psych Affect: normal affect Quality Reporting Tobacco Screening ([facility] 138) Smoking Status: Never smoker Assessment and Plan Assessment and Plan (1) IBS (irritable bowel syndrome): Status: Acute Orders: Orders: Liver Today Anti-Mitochondrial AB Today Angiotensin Convert Enzyme Today ANCA Today Anti-Smooth Muscle ABS Today Celiac Disease Profile Today Ceruloplasmin Today Copper, Serum or Plasma Today Immunoglobulin E Today Immunoglobulin G Today Immunoglobulin M Today LDH Today Hepatitis Panel Acute Today Plan - Dr. Kelly Friend, DO: A lot of her symptoms are consistent with her bowel syndrome with constipation and sometimes diarrhea. We will get a local evaluation of her gut and biochemical evaluation labs. She does not have any underlying autoimmune disease. (2) Fatty liver: Status: Acute Plan - Dr. Kelly Friend, DO: We will get an ultrasound of the liver and a FibroScan of the liver to try to see if her images are close to her previous image or she is progressed to possible poor hypertension. This is important because her mother was diagnosed with cirrhosis in her 40s. (3) Nausea: Status: Acute Plan - Dr. Kelly Friend, DO: Nausea is a big problem for her. We will start her on scopolamine patch. Her mother was okay with this plan 2. Plan Details Other Medications: New: scopolamine base 1 patch transdermal Q3D 30 days 10 ea 0RF I have re-examined the patient. There are no clinical changes since date of exam.
[2021-07-13 10:45] LABS: Internal QC Validated? YES +Cl - CLEAR BKGD; Pregnancy, Urine Negative Negative
[2021-07-13] MEDS: Lactated Ringers 1,000 ML 15 ML IV (10:45)
--- NOTE | 2021-07-13 11:47 | OP.EGD_ITS ---
Patient Name: Samantha Peace Procedure Date: 07/13/2021 11:19 AM Date of : 2000 Age: 21 Procedure: Upper GI endoscopy Indications: Epigastric abdominal pain, Heartburn Providers: Robin Sullivan DO Medicines: See the Anesthesia note for documentation of the administered medications Patient Profile: This is a 21 year old female. Refer to note in patient chart for documentation of history and physical. Patient has symptoms of acute abdominal cramping and acute epigastric abdominal pain. Complications: No immediate complications. Procedure: Pre-Anesthesia Assessment: - Prior to the procedure, a History and Physical was performed, and patient medications and allergies were reviewed. The patient is competent. The risks and benefits of the procedure and the sedation options and risks were discussed with the patient. All questions were answered and informed consent was obtained. Patient identification and proposed procedure were verified by the physician in the pre-procedure area. Mental Status Examination: alert and oriented. Airway Examination: normal oropharyngeal airway and neck mobility. Respiratory Examination: clear to auscultation. CV Examination: normal. Prophylactic Antibiotics: The patient does not require prophylactic antibiotics. Prior Anticoagulants: The patient has taken no previous anticoagulant or antiplatelet agents. ASA Grade Assessment: II - A patient with mild systemic disease. After reviewing the risks and benefits, the patient was deemed in satisfactory condition to undergo the procedure. The anesthesia plan was to use moderate sedation / analgesia (conscious sedation). Immediately prior to administration of medications, the patient was re-assessed for adequacy to receive sedatives. The heart rate, respiratory rate, oxygen saturations, blood pressure, adequacy of pulmonary ventilation, and response to care were monitored throughout the procedure. The physical status of the patient was re-assessed after the procedure. After obtaining informed consent, the endoscope was passed under direct vision. Throughout the procedure, the patient's blood pressure, pulse, and oxygen saturations were monitored continuously. The gastroscope was introduced through the mouth, and advanced to the second part of duodenum. The upper GI endoscopy was accomplished without difficulty. The patient tolerated the procedure well. Moderate Sedation: Moderate (conscious) sedation was administered by the endoscopy nurse and supervised by the endoscopist. The patient's oxygen saturation, heart rate, blood pressure and response to care were monitored. Total physician intraservice time was 15 minutes. Scope In: Scope Out: 11:38:35 AM Findings: LA Grade A (one or more mucosal breaks less than 5 mm, not extending between tops of 2 mucosal folds) esophagitis with no bleeding was found 34 to 35 cm from the incisors. Biopsies were taken with a cold forceps for histology. Verification of patient identification for the specimen was done. Estimated blood loss was minimal. Patchy mildly erythematous mucosa without bleeding was found in the gastric body. Biopsies were taken with a cold forceps for histology. Verification of patient identification for the specimen was done. Estimated blood loss was minimal. The second portion of the duodenum was normal. Biopsies were taken with a cold forceps for histology. Verification of patient identification for the specimen was done. Estimated blood loss was minimal. Impression: - LA Grade A reflux esophagitis. Biopsied. - Erythematous mucosa in the gastric body. Biopsied. - Normal second portion of the duodenum. Biopsied. Recommendation: - Discharge patient to home. - Resume previous diet. - Await pathology results. - Continue present medications. Procedure Code(s): --- Professional --- 26739, Esophagogastroduodenoscopy, flexible, transoral; with biopsy, single or multiple 57448, 59, Moderate sedation services provided by the same physician or other qualified health career development manager performing the diagnostic or therapeutic service that the sedation supports, requiring the presence of an independent trained observer to assist in the monitoring of the patient's level of consciousness and physiological status; initial 15 minutes of intraservice time, patient age 5 years or older CPT copyright 2017 [employer]. All rights reserved. The codes documented in this report are preliminary and upon remote medical coder review may be revised to meet current compliance requirements. Robin Sullivan DO 07/13/2021 11:46:52 AM This report has been signed electronically. Number of Addenda: 1 Note Initiated On: 07/13/2021 11:19 AM Addendum Number: 1 Addendum Date: 02/08/2022 6:40:12 AM MAC was used as sedation for this procedure. Robin Sullivan DO 02/08/2022 6:40:16 AM This report has been signed electronically.
--- NOTE | 2021-07-13 11:48 | OP.CCLET_ITS ---
02/08/2022 Radha Mantilla [place] [id number] [place] [address] Re : Upper GI endoscopy procedure for Samantha Peace Dear Dr. Mantilla This procedure was performed on Tuesday, July 13, 2021. My impressions and recommendations are as follows: Impressions : - LA Grade A reflux esophagitis. Biopsied. - Erythematous mucosa in the gastric body. Biopsied. - Normal second portion of the duodenum. Biopsied. Recommendations : - Discharge patient to home. - Resume previous diet. - Await pathology results. - Continue present medications. My findings are described in the full procedure note, which is enclosed. If I can be of further assistance, please feel free to contact me at . Sincerely, Robin Sullivan, 07/13/2021 11:46:52 AM This report has been signed electronically.
== END 2021-07-13 23:59 | disposition home or self-care (01) ==
LOC: EN 10:10 → AC 10:11
PROVIDERS: Anesthesiology; PCP Family Medicine; Referring Provider Family Medicine; Visit Provider Internal Medicine Gastroenterology
PROC: 0DJ08ZZ Inspection of Upper Intestinal Tract, Via Natural or Artificial Opening Endoscopic (ICD-10-PCS; CPT 43235; principal; 2021-07-13 11:10)
DX: K29.50 Unspecified chronic gastritis without bleeding (principal); F31.9 Bipolar disorder, unspecified; K58.9 Irritable bowel syndrome, unspecified; K21.00 Gastro-esophageal reflux disease with esophagitis, without bleeding; K76.0 Fatty (change of) liver, not elsewhere classified; J45.909 Unspecified asthma, uncomplicated; G89.29 Other chronic pain; F41.8 Other specified anxiety disorders; K31.84 Gastroparesis; Z79.899 Other long term (current) drug therapy
CPT/HCPCS: 43239; 81025; 87426; 88305; 88313; 88342; J7120; J2405

== ENCOUNTER 2021-08-20 10:55 | Emergency (ER) | payer MEDICAID, SELFPAY ==
[2021-08-20 10:56] VITALS: BP 134/101; PULSE 109; RESP 14; TEMP 36.6; O2SAT 97; BMI 27.6
--- NOTE | 2021-08-20 11:09 | CT_ITS ---
HISTORY: Abdominal pain. TECHNIQUE: Helically acquired images were obtained of the abdomen and pelvis with IV contrast. A radiation dose optimization technique was used for this scan. IV Contrast dosage and agent: 100mL [id number]-370 IV. Oral contrast: None. # of images incl. paperwork: 410. COMPARISON: 10/20/2020. FINDINGS: LOWER CHEST: Lung bases clear. BOWEL: Bowel including appendix nondilated. Long segment of moderate colonic wall thickening extending from the splenic flexure to the mid descending colon. LIVER: Fatty infiltration, enlarged. GALLBLADDER/BILIARY TREE: Gallbladder present. SPLEEN/PANCREAS: Homogeneous. KIDNEYS: 1.8 cm left renal cyst. No hydronephrosis. ADRENAL GLANDS: Unremarkable. PERITONEUM: No significant ascites. VESSELS: No abdominal aortic aneurysm. PELVIC ORGANS: Unremarkable. BONES: Intact. CT/Abdomen/Pelvis W IV Cont ONLY IMPRESSION: Moderate colonic wall thickening, compatible with acute colitis. Hepatic steatosis with hepatomegaly. Small left renal cyst. Individualized dose optimization techniques were used for this CT. at 1242 Reported and signed by: Julissa Bhatia MD Electronically Signed: Julissa Bhatia MD at 12:41 EDT ,
--- NOTE | 2021-08-20 11:11 | EX.ED.DYSGE1 ---
HPI History of Present Illness Chief Complaint: GI Bleed Informant: patient and parent Narrative Narrative: Patient presents with abdominal cramping diarrhea and blood in the stool. This patient has a history of irritable bowel syndrome since she was approximately 4 years old. She does take meds for this routinely. Last night at about 6:30 PM she started having a lot of cramping. She felt as though she had to move her bowels but sat on the toilet for an hour and a half and never moved her bowels. This morning she had more cramping but then had diarrhea with a fair amount of red blood. There is argument between her and her mom if it was bright red or dark red. There was no melena. She has had nausea but this is a chronic problem for her and not really different. No vomiting. She has had subjective chills but no measured fever. She has had 2 EGDs one was done about a month ago. She has had one colonoscopy about a year ago but no reported abnormalities. No family history of Crohn's or ulcerative colitis. No prior abdominal surgeries. No urinary symptoms. Patient is on control. [facility] Medical History Anxiety Asthma Back pain Bipolar disorder Chest pain Chronic neck and back pain Depression Depression with anxiety Diarrhea Fatigue Fatty liver Gastroparesis GERD (gastroesophageal reflux disease) Hemorrhoids IBS (irritable bowel syndrome) Knee pain Limb weakness Migraine headache Nausea Non-smoker Severe headache Shortness of breath on exertion SOB (shortness of breath) Weight loss, abnormal Home Medications omeprazole 20 mg PO DAILY 06/04/18 [History Last Taken 07/13/21] hydroxyzine HCl 25 mg PO BID 10/20/20 [History Last Taken Unknown] famotidine 20 mg tablet 20 mg PO DAILY PRN tab 12/10/20 [History Last Taken Unknown] ondansetron HCl 4 mg tablet 4 mg PO Q8H PRN #10 tab 12/10/20 [Rx Last Taken Unknown] etonogestrel-ethinyl estradiol [NuvaRing] 0.12 vag ring VAGINAL DAILY 01/01/21 [History Last Taken Unknown] atomoxetine [Strattera] 40 mg PO DAILY 07/12/21 [History Last Taken Unknown] loperamide 2 mg PO DAILY 07/12/21 [History Last Taken Unknown] lurasidone [Latuda] 20 mg PO DAILY 07/12/21 [History Last Taken 07/13/21] promethazine 25 mg rectal suppository 25 mg MA Q6H PRN #12 ea 07/15/21 [Rx Last Taken Unknown] hydrocortisone 1 % topical cream See Rx Instructions .ROUTE .COMPLEX #29 g 08/03/21 [Rx Last Taken Unknown] scopolamine base 1 mg over 3 days transdermal patch 1 patch TRANSDERMAL Q72H #24 ea 08/04/21 [Rx Last Taken Unknown] dicyclomine 20 mg PO TID PRN #20 tab 08/20/21 [Rx Last Taken Unknown] prednisone 40 mg PO DAILY 7 Days #14 tab 08/20/21 [Rx Last Taken Unknown] Allergy/AdvReac Type Severity Reaction Status Date / Time No Known Allergies Allergy Verified 08/20/21 10:58 Family History Other Alcoholism Anxiety Arthritis Asthma DVT (deep venous thrombosis) Depression Diabetes Epilepsy Heart disease Hyperlipidemia Hypertension Kidney disease Liver disease Mental disorder Myocardial infarction Respiratory system disease Skin cancer Surgical History History of esophagogastroduodenoscopy (EGD) Hx of colonoscopy Meredith teeth removed Social History household members: none housing: house Smoking Status: Never smoker alcohol intake: current alcohol intake frequency: a few times a month substance use type: marijuana what type of physical activity do you participate in: none do you feel safe at home: Yes ROS ROS ED Constitutional Constitutional ED: Reports subjective ENT ENT ED: Denies rhinorrhea or sore throat Cardiovascular Cardiovascular: Denies chest pain Respiratory/Chest Respiratory/Chest: Denies cough or dyspnea Gastrointestinal Gastrointestinal: Reports abdominal pain, diarrhea and nausea; Denies melena or vomiting Genitourinary Genitourinary ED: Denies dysuria or hematuria Musculoskeletal Musculoskeletal: Denies myalgias Integumentary Denies rash Neurologic Neurologic: Denies headache(s) or weakness Psychiatric Psychiatric: Reports anxiety and depression Endocrine Endocrinology: Denies polydipsia or polyuria Allergic/Immunologic Allergic/Immunologic ED: Denies urticaria EXAM Physical Exam Const Vital Signs: 08/20/21 10:56 08/20/21 11:44 08/20/21 12:20 Temperature 97.8 F Temperature Source Temporal Pulse Rate 109 H 111 H Respiratory Rate 14 14 Blood Pressure 134/101 H 102/81 H 128/93 H Blood Pressure Mean 112 88 104 Pulse Ox 97 100 99 Oxygen Delivery Method Room Air Room Air Positive well nourished and well developed General Appearance ED: well developed and NAD; Negative for cyanotic, diaphoretic or pallor HEENT Reports moist mucous membranes Eyes General Eye ED: Negative for pale conjunctiva or scleral icterus Neck no JVD Resp normal respiratory effort and clear to auscultation bilaterally Cardio regular rate and regular rhythm GI normal to inspection, nondistended, normoactive bowel sounds GI Narrative: Patient's abdomen is soft with normal bowel sounds. They do not sound increased or decreased. No distention. No mass. She has mild nonfocal tenderness that seems a little bit more along the right side than the left but not markedly. No rebound or guarding. Rectal exam shows 2 areas that were likely small involuted hemorrhoids but no sign of acute inflammation or bleeding. No mass. No sign of infection. No notable tenderness. Palpation: soft Back/Spine no CVA tenderness Extremity normal to inspection Neuro Sensorium / Orientation: alert Psych mental status grossly normal Skin no rashes or lesions noted Skin Narrative: No diaphoresis General Skin Exam: Negative for jaundice or pallor MDM MDM MDM Narrative Medical decision making narrative: Patient's blood work does show mildly elevated white count but normal stable hemoglobin. Electrolytes liver function test and lipase are not showing any marked abnormalities. is negative. CT scan does show an area of thickening in the left descending colon area. I discussed case with Dr. Sullivan who sent this patient in. He would like to give a dose of Solu-Medrol here. He recommended 40 of prednisone a day for 7 days as well as Bentyl. He will follow up. Although this patient does not have a diagnosis of inflammatory bowel disease it is suspected she likely does and it is becoming more symptomatic. We discussed reasons with her to return that would include fevers, worsening pain bleeding lightheadedness or any other concerns. Lab Data Attestation: I reviewed the patient's lab results. Labs: Laboratory Results - last 24 hr 08/20/21 08/20/21 08/20/21 11:20 11:20 11:20 WBC 14.1 H RBC 4.59 Hgb 12.8 Hct 38.1 MCV 83.0 MCH 27.9 MCHC 33.6 RDW Std Deviation 38.6 RDW Coeff of Adalberto 12.8 Plt Count 341 MPV 8.6 Immature Gran % (Auto) 0.300 Neut % (Auto) 75.4 H Lymph % (Auto) 19.2 Hernando % (Auto) 4.3 Eos % (Auto) 0.4 Baso % (Auto) 0.4 Absolute Neuts (auto) 10.6 H Absolute Lymphs (auto) 2.70 Nucleated RBC % 0 Sodium 138 Potassium 3.6 Chloride 107 Carbon Dioxide 25.0 Anion Gap 6 BUN 6 L Creatinine 0.75 Estim Creat Clear Calc 121.92 Est GFR (MDRD) Af Amer 123 Est GFR (MDRD) Non-Af 102 BUN/Creatinine Ratio 8.0 L Glucose 110 H Calcium 9.0 Total Bilirubin 0.90 AST 22 ALT 46 Alkaline Phosphatase 95 Total Protein 7.3 Albumin 3.5 Globulin 3.8 Albumin/Globulin Ratio 0.9 Lipase 55 L Serum , Qual NEGATIVE Radiography Diagnostic Testing: Clinical Impression(s) from Imaging Studies Abdomen/Pelvis CT 08/20/21 11:09 IMPRESSION: Moderate colonic wall thickening, compatible with acute colitis. Hepatic steatosis with hepatomegaly. Small left renal cyst. Individualized dose optimization techniques were used for this CT. at 1242 Reported and signed by: Julissa Bhatia MD Electronically Signed: Julissa Bhatia MD at 12:41 EDT Reading Location ID and State: [facility] / [place] Tel , Service support , Discharge Plan Triage Chief Complaint: GI Bleed ED Provider: Duarte Rodas Dx/Rx/DC Orders Clinical Impression: Colitis, Bleeding per rectum Instructions: ED Understanding Colitis, ED Lower GI Bleeding (Stable) Prescriptions: New dicyclomine 20 mg tablet 20 mg PO TID PRN (Reason: cramping) Qty: 20 RF: 0 prednisone 20 MG tablet 40 mg PO DAILY 7 Days Qty: 14 RF: 0 No Action famotidine [Pepcid] 20 mg tablet 20 mg PO DAILY PRN (Reason: acid reflux) RF: 0 ondansetron HCl [Zofran] 4 mg tablet 4 mg PO Q8H PRN (Reason: nausea and vomiting) Qty: 10 RF: 0 scopolamine base 1 mg over 3 days patch 3 day 1 patch transdermal Q72H Qty: 24 RF: 2 omeprazole 20 capsule,delayed release(DR/EC) 20 mg PO DAILY RF: 0 hydroxyzine HCl 25 mg tablet 25 mg PO BID RF: 0 etonogestrel-ethinyl estradiol [NuvaRing] 0.12-0.015 mg/24 hr Ring 0.12 vag ring VAGINAL DAILY RF: 0 loperamide 2 mg Capsule 2 mg PO DAILY RF: 0 atomoxetine [Strattera] 40 mg Capsule 40 mg PO DAILY RF: 0 Latuda 20 mg Tablet 20 mg PO DAILY RF: 0 promethazine 25 mg suppository 25 mg MA Q6H PRN (Reason: nausea and vomiting) Qty: 12 RF: 1 hydrocortisone 1 % cream See Rx Instructions .ROUTE .COMPLEX Qty: 29 RF: 0 Primary Care Provider: Radha Mantilla Referrals: Radha Mantilla MD [Primary Care Provider] - Robin Sullivan DO [STAFF PHYSICIAN] - 1 Week Disposition Disposition: Home, Self Care
[2021-08-20] MEDS: Ondansetron 4 MG/2 ML Vial IV (11:21)
[2021-08-20] MEDS: Morphine 4 MG/ML Syringe IV (11:21)
[2021-08-20] MEDS: 0.9% Normal Saline 1,000 ML 1000 ML IV (11:21)
[2021-08-20 11:44] VITALS: BP 102/81; O2SAT 100
[2021-08-20 11:48] LABS: ALB/GLOB Ratio 0.9 RATIO (0.9-2.4); AST(SGOT) 22 U/L (15-37); Alanine Aminotransfer ALT/SGPT 46 U/L (13-56); Albumin, Serum 3.5 g/dL (3.2-5.0); Alkaline Phosphatase 95 U/L (45-117); Anion Gap 6 (5-15); BUN 6 mg/dL (7-18); Chloride 107 mmol/L (98-107); Creatinine, Serum 0.75 mg/dL (0.55-1.02); EST Glomerular Filtration Rate 102 mL/min (>60); Est Glom Filt Rate - Afr Amer 123 mL/min (>60); Estimated Creatinine Clearance 121.92 ml/min; Globulin 3.8 g/dL (2.2-4.2); Glucose 110 mg/dL (74-106); Lipase 55 U/L (73-393); Potassium 3.6 mmol/L (3.5-5.1); Protein, Total 7.3 g/dL (6.4-8.2); Sodium Level 138 mmol/L (136-145)
[2021-08-20 11:50] LABS: Absolute Neutrophil Count 10.6 X10^3/uL (2.0-7.7); Basophil# 0.05 X10^3/uL; Basophil% 0.4 % (0-1); Eosinophil# 0.05 X10^3/uL; Eosinophils% 0.4 % (0-5); Hematocrit 38.1 % (37-47); Hemoglobin 12.8 g/dL (12.0-15.0); Lymphocyte % 19.2 % (19-41); Mean Corp Hgb Conc 33.6 g/dL (32-36); Mean Corpuscular Hgb 27.9 pg (27.0-32.0); Mean Platelet Vol. 8.6 fl (6.2-12.0); Monocyte# 0.61 X10^3/uL; Monocyte% 4.3 % (0-10); NRBC Flagged by Analyzer 0 % (0-5); Neutrophil # 10.64 X10^3/uL (2.7-7.7); Neutrophil % 75.4 % (47-70); Platelet Count 341 K/mm3 (150-450); RBC Distribution Width CV 12.8 % (11.6-14.6); RBC Distribution Width SD 38.6 fl (35.1-43.9); Red Blood Count 4.59 M/mm3 (4.2-5.4); White Blood Count 14.1 K/mm3 (4.4-11.0)
[2021-08-20 11:58] LABS: Internal QC Validated? YES +Cl - CLEAR BKGD; Pregnancy, Serum, hCG Quali. NEGATIVE Negative
[2021-08-20 12:20] VITALS: BP 128/93; PULSE 111; RESP 14; O2SAT 99
[2021-08-20] MEDS: Dicyclomine 10 MG Capsule 20 MG PO (12:27)
[2021-08-20 13:18] VITALS: BP 130/91; PULSE 97; RESP 16; O2SAT 100
== END 2021-08-20 13:29 | disposition home or self-care (01) ==
PROVIDERS: Emergency Provider Emergency Medicine; PCP Family Medicine; Visit Provider Emergency Medicine
DX: K52.9 Noninfective gastroenteritis and colitis, unspecified (principal); F31.9 Bipolar disorder, unspecified; J45.909 Unspecified asthma, uncomplicated; G89.29 Other chronic pain; F41.8 Other specified anxiety disorders; K76.0 Fatty (change of) liver, not elsewhere classified; K21.9 Gastro-esophageal reflux disease without esophagitis; K58.9 Irritable bowel syndrome, unspecified; Z79.899 Other long term (current) drug therapy; K31.84 Gastroparesis
CPT/HCPCS: 74177; 80053; 83690; 84703; 85025; 96361; 96374; 96375; 99285; Q9967; J2405

== ENCOUNTER 2021-10-12 13:05 | Outpatient (RCR) | payer MEDICAID, SELFPAY | END 2021-11-10 23:59 | LOC: NS 13:05 | PROVIDERS: PCP Family Medicine; Visit Provider Internal Medicine Gastroenterology | DX: Z71.3 Dietary counseling and surveillance (principal); E63.9 Nutritional deficiency, unspecified | CPT/HCPCS: 97802 ==

== ENCOUNTER 2021-10-25 12:01 | Day surgery (SDC) | payer MEDICAID, SELFPAY ==
[2021-10-25 12:59] VITALS: BP 118/78; PULSE 104; RESP 18; TEMP 36.6; O2SAT 100; BMI 27.9
[2021-10-25 13:00] LABS: Internal QC Validated? YES +Cl - CLEAR BKGD; Pregnancy, Urine Negative Negative
[2021-10-25] MEDS: Lactated Ringers 1,000 ML 15 ML IV (13:08)
--- NOTE | 2021-10-25 13:11 | PCM.HP.BLA ---
History and Physical Date of Admission: 10/25/21 SAMANTHA LY, is a 21 F who presents to the office today for Follow up visit. Established with this clinic 06.09.21 with difficulty with epigastric pain, reflux, nausea with induced emesis causing decreased emesis and urgent diarrhea. Additional medical history includes depression, migraine headaches, nausea without emesis, ADHD, bipolar, GERD, IBS-D, fatty liver. Family history includes mother with MAN requiring liver transplant. Colonoscopy performed 08.03.20 finding internal hemorrhoids. No additional abnormalities reported. EGD performed 07.14.20 finding gastritis. No additional abnormalities. CT abd/pel 10.20.20 finding liver steatosis with mild hepatomegaly. Borderline retroperitoneal lymphadenopathy. Toxicology screen 01.02.21 positive for amphetamines and cannaboids. EGD performed 07.13.21 finding LA Grade A reflux esophagitis; erythematous mucosa in gastric body. US abd and elastography 07.06.21 liver measures 22cm with fatty infiltration. Stiffness measures 4.7kPa compatible with F0 Metavir score. Samantha presented to [facility] ED 08.20.21 with difficulty of abdominal cramping and blood in her stool. CT Scan obtained showing acute colitis and she was started on prednisone and dicyclomine then discharged home. CT abd/pel 08.20.21 found long segment of moderate colonic wall thickening from splenic flexure to mid descending colon, likely acute colitis; hepatomegaly with fatty infiltration. Remaining exam unremarkable. Plan last visit 08.05.21: IBS ? no signs of IBD. Elements of dumping which may be helped by diet. Fatty liver ? recommend diet changes Nausea ? recommend scopolamine patch, Compazine suppositories Continuing to have diarrhea without blood 4-5 times a day starting first thing in the morning; no nocturnal movements but will wake with abdominal cramping. Triggers are dairy, stress and too tight clothing. Reports that her stress level is increased; she attends counseling which she finds very helpful, but does not feel it is well managed. She is taking medication that is helpful with her bipolar disorder. She is not taking anything for her anxiety; she is taking hydroxyzine PRN and takes this BID and does not find this overly helpful. She is working on setting up with a psychiatrist. Reports some nausea without emesis; feels this is helped r/t the scopolamine patches. Does not regularly utilize suppositories. Continues to have anxiety regarding foods, the way they are prepared and stored. She continues to eat a very poor diet regarding this. ROS Const Constitutional: No fatigue, malaise, night sweats, weight change, sleep problems, abnormal sleep pattern or change in appetite ENT ENT: No difficulty swallowing, hoarseness or sore throat Cardio Cardiology: No chest pain at rest Gastro GI: No belching, change in stool character, coffee ground emesis, constipation, cramping, difficulty swallowing, feeling full early, excessive flatus, incontinent of stools, Vomiting blood/hematemesis, Blood in stool, loose stools, Black,tarry stools, pain with swallowing, vomiting or other Musc Musculoskeletal: No joint pain Skin Skin: No yellowing of the eye or itchy eyes Neuro Neurology: No behavioral changes Psych Psychiatric: No abnormal sleep pattern, No behavioral changes and No change in appetite Endo Endocrine: No fatigue or weight change Aller/Imm Allergy/Immunologic: No itchy eyes Rich/Lymp Hematologic/Lymphatic: No easy bleeding or easy bruising Exam Const General: cooperative and comfortable Nutritional Appearance: average body habitus and well nourished [facility] Head: normal to inspection Ears: hearing grossly normal bilaterally Nose: external nose normal Face and sinus: normal facial exam Mouth: oral mucosae normal Throat: posterior oropharynx normal Eyes General: appearance normal, both eyes and all related structures Neck Neck: normal visual inspection Chest Chest palpation & inspection: normal inspection of the chest and normal palpation of entire chest wall Resp Effort & Inspection: normal respiratory effort Auscultation: Bilateral: Clear to Auscultation Cardio Palpation: normal PMI Rate: regular rate Rhythm: regular rhythm GI Inspection: normal to inspection Auscultation: normal bowel sounds Percussion: normal to percussion Palpation: no hepatosplenomegaly Skin General: no rashes or lesions noted Neuro General: patient alert Extrem General: normal to inspection Psych Affect: normal affect Quality Reporting Tobacco Screening ([facility]) Smoking Status: Never smoker Assessment and Plan Assessment and Plan (1) IBS (irritable bowel syndrome): Status: Acute Plan - Dr. Kelly Friend, DO: Most of her symptoms seem to be that of IBS. However due to the fact she is having worsening cramping along with diarrhea and bloody stools inflammatory bowel disease should be ruled out. She will undergo colonoscopy with intubation of the terminal ileum. She is okay with this plan. We will also do stool studies to rule out infectious colitis. We will put her on a short course of budesonide therapy as she did not tolerate prednisone therapy. (2) Nausea: Status: Acute Plan - Dr. Kelly Friend, DO: Her nausea I think is multifactorial secondary to poor diet and anxiety disorder. She is on medications for bipolar disorder and anxiety disorder. She does not feel like they are helping. I told her that she would have to address this with her primary care doctor. Plan Details Other Medications: New: budesonide ER 3 mg PO DAILY 30 ea 2RF Discontinued: prednisone Discontinued Reason: Order Changed 40 mg (2 x 20 mg) PO DAILY 7 days 14 tabs 0RF I have re-examined the patient. There are no clinical changes since date of exam.
--- NOTE | 2021-10-25 13:30 | COLBX_PTH ---
PATIENT: JANAK LY LOC: EN U#:[id number] AGE/SX: 21/F ROOM: RE10/25/[address]: Dr. Robin Sullivan DO : 2000 BED: DIS: 10/25/2021 SPEC #: [id number] RECD: 10/25/21 17:00 STATUS: SRINIVAS HERRERA #: [id number] BENSON: 10/25/21 13:[address]: Robin Sullivan DEPT: SURGICAL PATHOLOGY RECD BY: Desiree Huff ENTERED: 10/26/21 11:21 SP TYPE: COLON BX OTHR DR: Dr. Radha Mantilla MD Tissues: A - Ileum, NOS B - COLON BIOPSY C - Rectum, NOS Procedures: Surgery Specimen Level IV HEADER OPERATION: Colonoscopy with biopsies (MAC) PRE-OP DIAGNOSIS: Irritable bowel syndrome, nausea TISSUE SUBMITTED: A ? Terminal ileum biopsy, B ? Random colon biopsy, C ? Rectum biopsy MICROSCOPIC DIAGNOSIS A. Terminal ileum, biopsy: Fragments of small intestinal mucosa, no pathologic diagnosis. See comment. B. Colon, random biopsy: Fragments of colonic mucosa, no pathologic diagnosis. C. Rectum, biopsy: Fragments of colonic mucosa, no pathologic diagnosis. SJ:kermit 10/27/2021 COMMENT A. Prominent lymphoid aggregates are noted. MICROSCOPIC DESCRIPTION Slides are reviewed. GROSS DESCRIPTION A - Received in fixative is one container labeled with the patient's name and designated terminal ileum biopsy. The specimen consists of multiple irregular fragments of light huerta soft tissue that in aggregate measure 1 x 0.5 x 0.1 cm. The specimen is totally submitted in one cassette. B - Received in fixative is one container labeled with the patient's name and designated random colon biopsy. The specimen consists of multiple irregular fragments of light huerta soft tissue that in aggregate measure 2 x 1 x 0.1 cm. The specimen is totally submitted in one cassette. C - Received in fixative is one container labeled with the patient's name and designated rectum biopsy. The specimen consists of multiple irregular fragments of light huerta soft tissue that in aggregate measure 0.5 x 0.3 x 0.1 cm. The specimen is totally submitted in one cassette. / AM:kermit 10/26/2021 TC:4 CPT: 93446 x3
--- NOTE | 2021-10-25 14:19 | OP.COLON_ITS ---
Patient Name: Samantha Peace Procedure Date: 10/25/2021 1:42 PM Date of : 2000 Age: 21 Procedure: Colonoscopy Indications: Hematochezia Providers: Robin Sullivan DO Medicines: Monitored Anesthesia Care Patient Profile: Last Colonoscopy: none. The patient's first colonoscopy is today. Complications: No immediate complications. Procedure: Pre-Anesthesia Assessment: - Prior to the procedure, a History and Physical was performed, and patient medications and allergies were reviewed. The patient is competent. The risks and benefits of the procedure and the sedation options and risks were discussed with the patient. All questions were answered and informed consent was obtained. Patient identification and proposed procedure were verified by the physician in the pre-procedure area. Mental Status Examination: alert and oriented. Airway Examination: normal oropharyngeal airway and neck mobility. Respiratory Examination: clear to auscultation. CV Examination: normal. Prophylactic Antibiotics: The patient does not require prophylactic antibiotics. Prior Anticoagulants: The patient has taken no previous anticoagulant or antiplatelet agents. ASA Grade Assessment: II - A patient with mild systemic disease. After reviewing the risks and benefits, the patient was deemed in satisfactory condition to undergo the procedure. The anesthesia plan was to use moderate sedation / analgesia (conscious sedation). Immediately prior to administration of medications, the patient was re-assessed for adequacy to receive sedatives. The heart rate, respiratory rate, oxygen saturations, blood pressure, adequacy of pulmonary ventilation, and response to care were monitored throughout the procedure. The physical status of the patient was re-assessed after the procedure. After I obtained informed consent, the scope was passed under direct vision. Throughout the procedure, the patient's blood pressure, pulse, and oxygen saturations were monitored continuously. The Colonoscope was introduced through the anus and advanced to the terminal ileum. The ileocecal valve, appendiceal orifice, and rectum were photographed. The quality of the bowel preparation was fair. Scope In: 1:58:20 PM Scope Withdrawal Time 0 hours 8 minutes 26 seconds Scope Out: 2:11:45 PM Total Procedure Duration Time 0 hours 13 minutes 25 seconds Findings: An anal fissure was found on perianal exam. An area of mildly congested mucosa was found in the rectum, in the recto-sigmoid colon, in the sigmoid colon and in the descending colon. Biopsies were taken with a cold forceps for histology. Verification of patient identification for the specimen was done. Estimated blood loss was minimal. An area of mucosa in the terminal ileum was mildly friable with contact bleeding. Biopsies were taken with a cold forceps for histology. Verification of patient identification for the specimen was done. Estimated blood loss was minimal. Impression: - Anal fissure found on perianal exam. - Congested mucosa in the rectum, in the recto-sigmoid colon, in the sigmoid colon and in the descending colon. Biopsied. - Friability with contact bleeding in the terminal ileum. Biopsied. Recommendation: - Discharge patient to home. - Resume previous diet. - Continue present medications. - Await pathology results. - Repeat colonoscopy in 5 years for surveillance. - Return to GI office. Procedure Code(s): --- Professional --- 17337, Colonoscopy, flexible; with biopsy, single or multiple CPT copyright 2017 [employer]. All rights reserved. The codes documented in this report are preliminary and upon coconut cooker review may be revised to meet current compliance requirements. Robin Sullivan DO 10/25/2021 2:19:07 PM This report has been signed electronically. Number of Addenda: 1 Note Initiated On: 10/25/2021 1:42 PM Addendum Number: 1 Addendum Date: 02/14/2022 6:22:38 AM MAC was used as sedation for this procedure. Robin Sullivan DO 02/14/2022 6:22:44 AM This report has been signed electronically.
[2021-10-25 14:20] VITALS: BP 114/80; BP 118/78; PULSE 107; RESP 16; TEMP 36.8; O2SAT 100
--- NOTE | 2021-10-25 14:20 | OP.CCLET_ITS ---
02/14/2022 Radha Mantilla [place] [id number] [place] [address] Re : Colonoscopy procedure for Samantha Peace Dear Dr. Mantilla This procedure was performed on Monday, October 25, 2021. My impressions and recommendations are as follows: Impressions : - Anal fissure found on perianal exam. - Congested mucosa in the rectum, in the recto-sigmoid colon, in the sigmoid colon and in the descending colon. Biopsied. - Friability with contact bleeding in the terminal ileum. Biopsied. Recommendations : - Discharge patient to home. - Resume previous diet. - Continue present medications. - Await pathology results. - Repeat colonoscopy in 5 years for surveillance. - Return to GI office. My findings are described in the full procedure note, which is enclosed. If I can be of further assistance, please feel free to contact me at . Sincerely, Robin Sullivan, 10/25/2021 2:19:07 PM This report has been signed electronically.
[2021-10-25 14:26] VITALS: BP 103/63; BP 118/78; PULSE 108; RESP 16; O2SAT 100
[2021-10-25 14:30] VITALS: BP 116/85; BP 118/78; PULSE 103; RESP 16; O2SAT 100
[2021-10-25 14:38] VITALS: BP 118/78; BP 123/89; PULSE 100; RESP 16; TEMP 35.9; O2SAT 100
[2021-10-25 15:00] VITALS: BP 118/78
== END 2021-10-25 15:02 | disposition home or self-care (01) ==
LOC: EN 12:01 → AC 12:05
PROVIDERS: Anesthesiology; PCP Family Medicine; Referring Provider Family Medicine; Visit Provider Internal Medicine Gastroenterology
PROC: 0DJD8ZZ Inspection of Lower Intestinal Tract, Via Natural or Artificial Opening Endoscopic (ICD-10-PCS; CPT 45378; principal; 2021-10-25 13:25)
DX: K60.2 Anal fissure, unspecified (principal); F31.9 Bipolar disorder, unspecified; F32.A Depression, unspecified; G43.909 Migraine, unspecified, not intractable, without status migrainosus; F90.9 Attention-deficit hyperactivity disorder, unspecified type; K21.9 Gastro-esophageal reflux disease without esophagitis; K58.0 Irritable bowel syndrome with diarrhea; K76.0 Fatty (change of) liver, not elsewhere classified; J45.909 Unspecified asthma, uncomplicated; G89.29 Other chronic pain; K31.84 Gastroparesis; Z79.899 Other long term (current) drug therapy
CPT/HCPCS: 45380; 81025; 88305; J7120; J2405

== ENCOUNTER 2022-02-14 11:27 | Emergency (ER) | payer MEDICAID, SELFPAY ==
[2022-02-14 11:28] VITALS: BP 143/107; PULSE 140; RESP 16; TEMP 36.8; O2SAT 98; BMI 27.5
--- NOTE | 2022-02-14 11:43 | EKG12_ITS ---
Test Reason : RIB PAIN Blood Pressure : / mmHG Vent. Rate : 136 BPM Atrial Rate : 136 BPM P-R Int : 130 ms QRS Dur : 074 ms QT Int : 296 ms P-R-T Axes : 036 068 026 degrees QTc Int : 445 ms Sinus tachycardia Otherwise normal ECG Confirmed by AUSTIN ROBINS, LICO ([id number]), health editor DASH LOPES ([id number]) on 02/16/2022 7:59:01 AM Referred By: WILMA Confirmed By:LICO AVILA MD
--- NOTE | 2022-02-14 11:48 | RAD_ITS ---
HISTORY: chest pain. TECHNIQUE: XR Chest 1 View. COMPARISON: 06/04/2018. FINDINGS: CARDIOMEDIASTINAL BORDERS: Cardiac silhouette within normal limits in size. Mediastinal contour unremarkable. LUNGS: Radiographically clear. PLEURA: No pleural effusion or pneumothorax seen. OSSEOUS STRUCTURES: Unremarkable. RAD/Chest 1 View (Portable) IMPRESSION: No acute cardiopulmonary process identified. Electronically Signed: Julissa Bhatia MD at 13:32 EDT ,
[2022-02-14 12:06] LABS: Absolute Lymphocyte Count 2.72 X10^3/uL (0.83-4.51); Absolute Neutrophil Count 5.7 X10^3/uL (2.0-7.7); Basophil# 0.08 X10^3/uL; Basophil% 0.9 % (0-1); Eosinophil# 0.08 X10^3/uL; Eosinophils% 0.9 % (0-5); Hematocrit 39.3 % (37-47); Hemoglobin 13.3 g/dL (12.0-15.0); Lymphocyte # 2.72 X10^3/ul (0.83-4.51); Lymphocyte % 30.2 % (19-41); Mean Corp Hgb Conc 33.8 g/dL (32-36); Mean Corpuscular Hgb 28.2 pg (27.0-32.0); Mean Corpuscular Volume 83.4 fL (81-99); Mean Platelet Vol. 8.8 fl (6.2-12.0); Monocyte# 0.41 X10^3/uL; Monocyte% 4.6 % (0-10); NRBC Flagged by Analyzer 0 % (0-5); Neutrophil # 5.69 X10^3/uL (2.7-7.7); Neutrophil % 63.1 % (47-70); Platelet Count 396 K/mm3 (150-450); RBC Distribution Width CV 12.9 % (11.6-14.6); RBC Distribution Width SD 39.2 fl (35.1-43.9); Red Blood Count 4.71 M/mm3 (4.2-5.4)
[2022-02-14 12:24] LABS: Anion Gap 8 (5-15); BUN 6 mg/dL (7-18); BUN/Creat Ratio 8.2 RATIO (10-20); Calcium,Total 9.1 mg/dL (8.5-10.1); Chloride 109 mmol/L (98-107); Creatinine, Serum 0.73 mg/dL (0.55-1.02); EST Glomerular Filtration Rate 104 mL/min (>60); Est Glom Filt Rate - Afr Amer 125 mL/min (>60); Estimated Creatinine Clearance 125.26 ml/min; Glucose 96 mg/dL (74-106); Potassium 3.6 mmol/L (3.5-5.1); Sodium Level 140 mmol/L (136-145); Troponin-I HS < 3 pg/mL (3.0-54.0)
[2022-02-14 13:24] VITALS: BP 139/102; PULSE 82; RESP 16; O2SAT 100
--- NOTE | 2022-02-14 13:49 | EX.ED.GENINJ ---
HPI History of Present Illness Chief Complaint: Chest Other Informant: patient Narrative Narrative: 21-year-old female presenting to the emergency room with right rib pain. Patient states that about 3 weeks ago she [place] the [place] on [place] that was using gravitational forces. When she got off the ride she noted pain in the right lateral posterior lower ribs. That pain has progressively worsened. She notes some cough but no hemoptysis. No blood in the urine or bowels. She states its painful to take a deep breath. She denies any bruising. She has been eating and drinking normally. [facility] Medical History ADHD Anxiety Asthma Back pain Bipolar disorder Chest pain Chronic neck and back pain Depression with anxiety Diarrhea Fatigue Fatty liver Gastroparesis GERD (gastroesophageal reflux disease) Hemorrhoids IBS (irritable bowel syndrome) Knee pain Limb weakness Migraine headache Nausea Non-smoker Severe headache Shortness of breath on exertion SOB (shortness of breath) Weight loss, abnormal Home Medications omeprazole 20 mg capsule,delayed release 20 mg PO DAILY 06/04/18 [History Last Taken 07/13/21] hydroxyzine HCl 25 mg tablet 25 mg PO BID 10/20/20 [History Last Taken Unknown] famotidine 20 mg tablet (Pepcid) 20 mg PO DAILY PRN acid reflux 12/10/20 [History Last Taken Unknown] etonogestrel 0.12 mg-ethinyl estradiol 0.015 mg/24 hr vaginal ring (NuvaRing) 0.12 vag ring vaginal DAILY 01/01/21 [History Last Taken Unknown] atomoxetine 40 mg capsule (Strattera) 60 mg PO DAILY 07/12/21 [History Last Taken Unknown] lurasidone 20 mg tablet (Latuda) 20 mg PO DAILY bipolar 07/12/21 [History Last Taken 07/13/21] budesonide 3 mg capsule,delayed,extended release 3 mg PO DAILY IBS 10/18/21 [History Last Taken Unknown] dicyclomine 20 mg tablet See Rx Instructions .Route .COMPLEX #90 tabs 10/31/21 [Rx Last Taken Unknown] scopolamine base 1 mg over 3 days transdermal patch See Rx Instructions .Route .COMPLEX #10 patches 01/10/22 [Rx Last Taken Unknown] hydrocodone-acetaminophen 5-325mg 5mg-325mg 1 tab PO Q6H PRN PRN Pain 3 days #12 TABLETS 02/14/22 [Rx Last Taken Unknown] Allergy/AdvReac Type Severity Reaction Status Date / Time No Known Allergies Allergy Verified 02/14/22 11:27 Family History Other Alcoholism Anxiety Arthritis Asthma DVT (deep venous thrombosis) Depression Diabetes Epilepsy Heart disease Hyperlipidemia Hypertension Kidney disease Liver disease Mental disorder Myocardial infarction Respiratory system disease Skin cancer Surgical History History of esophagogastroduodenoscopy (EGD) Hx of colonoscopy [place] teeth removed Social History household members: none housing: house Smoking Status: Never smoker alcohol intake: current alcohol intake frequency: a few times a month substance use type: marijuana what type of physical activity do you participate in: none do you feel safe at home: Yes ROS ROS ED Constitutional Constitutional ED: Denies chills, fever(s) or weight loss Eyes Eyes: Denies change in vision or diplopia ENT ENT ED: Denies ear pain, rhinorrhea or sore throat Cardiovascular Cardiovascular: Reports chest pain; Denies orthopnea, palpitations or racing heartbeat Respiratory/Chest Respiratory/Chest: Denies cough, dyspnea or orthopnea Gastrointestinal Gastrointestinal: Denies abdominal pain, diarrhea, nausea or vomiting Genitourinary Genitourinary ED: Denies dysuria, hematuria or urinary frequency Musculoskeletal Musculoskeletal: Denies arthralgias or myalgias Integumentary Denies abscess or rash Neurologic Neurologic: Denies headache(s) or weakness Psychiatric Psychiatric: Denies anxiety, depression, suicidal ideation or suicidal thoughts Endocrine Endocrinology: Denies polydipsia, polyphagia or polyuria Allergic/Immunologic Allergic/Immunologic ED: Denies mouth swelling, tongue swelling or urticaria EXAM Physical Exam Const Vital Signs: 02/14/22 11:28 02/14/22 13:24 02/14/22 13:24 Temperature 98.2 F Temperature Source Temporal Pulse Rate 140 H 82 Respiratory Rate 16 16 Respiratory Effort Blood Pressure 143/107 H 139/102 H Blood Pressure Mean 119 114 Pulse Ox 98 100 100 Oxygen Delivery Method Room Air Room Air 02/14/22 13:24 Temperature Temperature Source Pulse Rate Respiratory Rate Respiratory Effort Normal Non-Labored Blood Pressure Blood Pressure Mean Pulse Ox Oxygen Delivery Method Positive well nourished and well developed General Appearance ED: well developed HEENT Reports normocephalic, head/scalp atraumatic and moist mucous membranes Eyes PERRL and EOMs intact bilaterally Neck no lymphadenopathy, supple and no JVD Chest Wall Chest Narrative: Patient has tenderness to palpation over the lower right lateral and posterior ribs. Particularly ribs 8 through 10. There is no rash. Resp normal respiratory effort and clear to auscultation bilaterally Cardio regular rate, regular rhythm and no murmurs GI normal to inspection, nondistended, normoactive bowel sounds and non-tender Palpation: soft Back/Spine no CVA tenderness and normal ROM Extremity normal to inspection General Extremety ED: Negative for edema General Extremity: Negative for edema Neuro oriented x3 and CN's II-XII intact bilaterally Sensorium / Orientation: alert Motor Exam: strength 5/5 throughout Psych mental status grossly normal Mood & Affect: Negative for depressed or tearful Skin no rashes or lesions noted and no wounds MDM MDM MDM Narrative Medical decision making narrative: Basic blood work was obtained and was negative. My interpretation the chest x-ray is no acute process. CT of the chest demonstrates nondisplaced fractures of the right seventh and eighth ribs. No pneumothorax or pulmonary contusion noted. Patient was discharged home with supportive care. I can write for a few [place] but was advised that nothing is going to make her pain free until her ribs are been healed. Lab Data Attestation: I reviewed the patient's lab results. Labs: Laboratory Results - last 24 hr 02/14/22 02/14/22 11:45 11:45 WBC 9.0 RBC 4.71 Hgb 13.3 Hct 39.3 MCV 83.4 MCH 28.2 MCHC 33.8 RDW Std Deviation 39.2 RDW Coeff of Adalberto 12.9 Plt Count 396 MPV 8.8 Immature Gran % (Auto) 0.300 Neut % (Auto) 63.1 Lymph % (Auto) 30.2 [place] % (Auto) 4.6 Eos % (Auto) 0.9 Baso % (Auto) 0.9 Absolute Neuts (auto) 5.7 Absolute Lymphs (auto) 2.72 Nucleated RBC % 0 Sodium 140 Potassium 3.6 Chloride 109 H Carbon Dioxide 23.0 Anion Gap 8 BUN 6 L Creatinine 0.73 Estim Creat Clear Calc 125.26 Est GFR (MDRD) Af Amer 125 Est GFR (MDRD) Non-Af 104 BUN/Creatinine Ratio 8.2 L Glucose 96 Calcium 9.1 Troponin I High Sens < 3 L Radiography Diagnostic Testing: Clinical Impression(s) from Imaging Studies Chest X-Ray 02/14/22 11:48 IMPRESSION: No acute cardiopulmonary process identified. Electronically Signed: Julissa Bhatia MD at 13:32 EDT , ADDENDUM: 02/14/22 1430 IMPRESSION: undefined Chest CT 02/14/22 14:01 IMPRESSION: Nondisplaced fractures of the right seventh and eighth ribs. Hepatic steatosis. Electronically Signed: Julissa Bhatia MD at 14:27 EDT , EKG Initial EKG: Attestation: I personally reviewed and interpreted this EKG as follows: Comments: Sinus tachycardia with a ventricular rate of 136 bpm Prior: Changed Discharge Plan Triage Chief Complaint: Chest Other ED Provider: Dm Sherman Dx/Rx/DC Orders Clinical Impression: Closed rib fracture, Chest pain Instructions: ED Rib Fracture Prescriptions: New hydrocodone-acetaminophen [hydrocodone-acetaminophen] 5-325 mg tablet 1 tab PO Q6H PRN PRN (Reason: Pain) 3 Days Qty: 12 0RF No Action famotidine [Pepcid] 20 mg tablet 20 mg PO DAILY PRN (Reason: acid reflux) omeprazole 20 capsule,delayed release(DR/EC) 20 mg PO DAILY hydroxyzine HCl 25 mg tablet 25 mg PO BID etonogestrel-ethinyl estradiol [NuvaRing] 0.12-0.015 mg/24 hr Ring 0.12 vag ring VAGINAL DAILY atomoxetine [Strattera] 40 mg Capsule 60 mg PO DAILY Latuda 20 mg Tablet 20 mg PO DAILY budesonide 3 mg capsule,delayed,extend.release 3 mg PO DAILY dicyclomine 20 mg tablet See Rx Instructions .ROUTE .COMPLEX Qty: 90 3RF Dose Instruction: TAKE 1 TABLET BY MOUTH THREE TIMES DAILY NEEDED FOR CRAMPING. Rx Instructions: TAKE 1 TABLET BY MOUTH THREE TIMES DAILY NEEDED FOR CRAMPING. scopolamine base 1 mg over 3 days patch 3 day See Rx Instructions .ROUTE .COMPLEX Qty: 10 3RF Dose Instruction: APPLY PATCH TRANSDERMALLY EVERY 3 DAYS FOR 30 DAYS Rx Instructions: APPLY PATCH TRANSDERMALLY EVERY 3 DAYS FOR 30 DAYS Primary Care Provider: Radha Mantilla Referrals: Radha Mantilla MD [Primary Care Provider] - 1 Week Disposition Disposition: Home, Self Care
--- NOTE | 2022-02-14 14:01 | CT_ITS ---
HISTORY: right rib trauma. TECHNIQUE: Helically acquired images were obtained of the chest without contrast. A radiation dose optimization technique was used for this scan. 841 images. COMPARISON: XR same day. FINDINGS: LARGE AIRWAYS: Patent. LUNGS: Clear. PLEURA: No pneumothorax or significant pleural effusion. HEART/PERICARDIUM: Heart within normal limits in size. No significant coronary artery calcification. No pericardial effusion. VESSELS: Thoracic aorta nondilated. MEDIASTINUM/NICHELLE: No pathologically enlarged adenopathy. Residual thymus incidentally noted. UPPER ABDOMEN: Fatty infiltration of the liver. BONES: Nondisplaced fractures of the right seventh and eighth ribs laterally with mild overlying soft tissue swelling. CT/Chest without Contrast IMPRESSION: Nondisplaced fractures of the right seventh and eighth ribs. Hepatic steatosis. Electronically Signed: Julissa Bhatia MD at 14:27 EDT ,
[2022-02-14 15:26] VITALS: BP 130/96; PULSE 100; RESP 16; O2SAT 100
== END 2022-02-14 15:27 | disposition home or self-care (01) ==
PROVIDERS: Emergency Provider Emergency Medicine; PCP Family Medicine; Visit Provider Emergency Medicine
DX: S22.41XA Multiple fractures of ribs, right side, initial encounter for closed fracture (principal); F12.90 Cannabis use, unspecified, uncomplicated; F41.9 Anxiety disorder, unspecified; K21.9 Gastro-esophageal reflux disease without esophagitis; F32.A Depression, unspecified; Z79.899 Other long term (current) drug therapy; X58.XXXA Exposure to other specified factors, initial encounter
CPT/HCPCS: 71045; 71250; 80048; 84484; 85025; 93005; 99284; A4216

== ENCOUNTER → 2022-05-16 | Outpatient (CLI) | payer MEDICAID, SELFPAY ==
[2022-05-16 18:52] LABS: Vitamin D,25 Hydroxy 32.8 ng/mL
== END | disposition home or self-care (01) ==
PROVIDERS: PCP Family Medicine; Visit Provider Family Medicine
DX: E55.9 Vitamin D deficiency, unspecified (principal)
CPT/HCPCS: 36415; 82306

== ENCOUNTER 2022-06-24 13:17 | Emergency (ER) | payer MEDICAID, SELFPAY ==
[2022-06-24 13:18] VITALS: BP 144/101; PULSE 129; RESP 18; TEMP 35.8; O2SAT 100; BMI 27.3
--- NOTE | 2022-06-24 13:26 | ED.VIS.DENTA ---
HPI <DAVID Hearn - Last Filed: 06/24/22 13:32> History of Present Illness Chief Complaint: Dental Narrative Narrative: 22-year-old female with no significant ankle history presents to the emergency department with complaints of tooth pain to the right upper molar. Patient states that this did fracture multiple weeks ago, it did not cause her any discomfort. Patient states that over the last 3 to 4 days, she has had worsening pain to her right upper jaw, right ear, right face. She is concerned that she might have a dental infection. She did contact her dentist who could not get her anterior-lateral next week. She denies any fever or chills. Denies any history of rheumatic fever, mitral valve prolapse, IV drug use PFSH <DAVID Hearn - Last Filed: 06/24/22 13:32> COUNT INCLUDES THE [facility] Medical History (Updated 06/24/22 @ 14:[address] Maico Bernard MD) ADHD Anxiety Asthma Back pain Bipolar disorder Chest pain Chronic neck and back pain COVID-19 Depression with anxiety Diarrhea Fatigue Fatty liver Gastroparesis GERD (gastroesophageal reflux disease) Hemorrhoids IBS (irritable bowel syndrome) Knee pain Limb weakness Migraine headache Nausea Non-smoker Severe headache Shortness of breath on exertion SOB (shortness of breath) Weight loss, abnormal Home Medications omeprazole 20 mg capsule,delayed release 20 mg PO DAILY 06/04/18 [History Last Taken 07/13/21] hydroxyzine HCl 25 mg tablet 25 mg PO BID 10/20/20 [History Last Taken Unknown] famotidine 20 mg tablet (Pepcid) 20 mg PO DAILY PRN acid reflux 12/10/20 [History Last Taken Unknown] etonogestrel 0.12 mg-ethinyl estradiol 0.015 mg/24 hr vaginal ring (NuvaRing) 0.12 vag ring vaginal DAILY 01/01/21 [History Last Taken Unknown] atomoxetine 40 mg capsule (Strattera) 60 mg PO DAILY 07/12/21 [History Last Taken Unknown] lurasidone 20 mg tablet (Latuda) 20 mg PO DAILY bipolar 07/12/21 [History Last Taken 07/13/21] budesonide 3 mg capsule,delayed,extended release 3 mg PO DAILY IBS 10/18/21 [History Last Taken Unknown] dicyclomine 20 mg tablet See Rx Instructions .Route .COMPLEX #90 tabs 06/20/22 [Rx Last Taken Unknown] hydrocodone-acetaminophen 5-325mg 5mg-325mg 1 tab PO Q6H PRN PRN Pain 3 days #12 TABLETS 02/14/22 [Rx Last Taken Unknown] scopolamine base 1 mg over 3 days transdermal patch See Rx Instructions .Route .COMPLEX #10 patches 06/13/22 [Rx Last Taken Unknown] naproxen 500 mg tablet (Naprosyn) 500 mg PO BID #20 tabs 06/24/22 [Rx Last Taken Unknown] penicillin V potassium 500 mg tablet 500 mg PO 4X/DAY #40 tabs 06/24/22 [Rx Last Taken Unknown] Allergy/AdvReac Type Severity Reaction Status Date / Time No Known Allergies Allergy Verified 06/24/22 13:19 Family History Other Alcoholism Anxiety Arthritis Asthma DVT (deep venous thrombosis) Depression Diabetes Epilepsy Heart disease Hyperlipidemia Hypertension Kidney disease Liver disease Mental disorder Myocardial infarction Respiratory system disease Skin cancer Surgical History History of esophagogastroduodenoscopy (EGD) Hx of colonoscopy [place] teeth removed Social History household members: none housing: house Smoking Status: Never smoker alcohol intake: current alcohol intake frequency: a few times a month substance use type: marijuana what type of physical activity do you participate in: none do you feel safe at home: Yes ROS <DAVID Hearn - Last Filed: 06/24/22 13:32> ROS ED ROS Narrative Constitutional: Negative for fever, chills, weight loss, weakness Eyes: Negative for vision loss, vision change, double vision ENT: Negative for any sore throat, ear pain, congestion. Positive for pain to the right upper molar Cardiovascular: Negative for any chest pain, tightness, palpitations Respiratory: Negative for any cough, sputum production, hemoptysis, dyspnea, dyspnea on exertion, orthopnea Gastrointestinal: Negative for any abdominal pain, nausea, vomiting, diarrhea, constipation, blood in stool, blood in vomit : Negative for any urinary frequency, dysuria, retention, blood in urine Muscle skeletal: Negative for any muscle joint pain, stiffness, myalgias, arthralgias, neck pain, back pain Neurological: Negative for any headache, syncope, numbness or tingling, dizziness Skin: Negative for any rashes, lumps, itching, abrasions, lacerations Psychiatric: Negative for any depression, anxiety, stress, suicidal ideation, homicidal ideation Hematologic: Negative for any easy bruising, excessive bruising, easy bleeding Allergies: Negative for any eczema, hives, rash EXAM <DAVID Hearn - Last Filed: 06/24/22 13:32> Physical Exam Narrative Exam Narrative: Vital signs reviewed. HEET: Head normocephalic atraumatic, TMs clear bilaterally. Posterior pharynx is clear, moist mucous membranes. Nares clear bilaterally. Patient does have a fractured right upper molar, the posterior tooth is just slightly fractured. Negative for any significant edema. There is no drainage noted, no deep tissue infection. Patient has no trismus. There is no fluctuance, no signs or symptoms of abscess. Neck: Supple with no lymphadenopathy or tenderness. No signs of meningismus, negative jolt sign. Cardiac: Regular rate and rhythm no murmurs gallops or rubs, equal peripheral pulses bilaterally. Respiratory: Lungs clear to auscultation bilaterally. No chest tenderness. Abdomen: Soft, nontender, nondistended. No abdominal bruit or pulsatile masses. No hepatosplenomegaly Extremities: No peripheral edema, no signs of gross trauma or deformity. Active full range of motion of all extremities. Neuro: Cranial nerves II through XII intact, no focal neurological deficits. Skin: Clean dry and intact with no rash, purpura, petechiae, vesicles or pustules. Backs/flank: No CVA tenderness, no midline spinal tenderness, no deformity. Psych: Normal mood and affect. No SI, HI or acute psychosis. Const Vital Signs: 06/24/22 13:18 Temperature 96.5 F L Temperature Source Temporal Pulse Rate 129 H Respiratory Rate 18 Blood Pressure 144/101 H Blood Pressure Mean 115 Pulse Ox 100 Oxygen Delivery Method Room Air <Dr. Maico Bernard MD - Last Filed: 06/24/22 14:24> Physical Exam Const Vital Signs: 06/24/22 13:18 Temperature 96.5 F L Temperature Source Temporal Pulse Rate 129 H Respiratory Rate 18 Blood Pressure 144/101 H Blood Pressure Mean 115 Pulse Ox 100 Oxygen Delivery Method Room Air [facility] <DAVID Hearn - Last Filed: 06/24/22 13:32> [facility] Treatment and Re-Evaluation Narrative: Patient appears well, patient appears nontoxic, vital signs are stable. Patient presents to the emergency department with complaints of a fractured right upper molar that has been causing her pain. Patient does have a dental appointment next week. Patient's physical examination was grossly unremarkable, patient will be given Pen-Vee K secondary to concern for infection secondary to fractured tooth. Patient also begin a prescription for naproxen secondary to her overuse of ibuprofen. She was also instructed to use Tylenol. At this time, there is no evidence to suspect any [place] angina, deep tissue infection. Patient is instructed to follow-up with her dentist. She is instructed return for any worsening symptoms <Dr. Maico Bernard MD - Last Filed: 06/24/22 14:24> [facility] Narrative Medical decision making narrative: I have personally performed a face to face assessment of the patient and have reviewed the CHARY Note. I performed a substantive portion of the visit including all aspects of the following. My mariee findings include: History is remarkable for right upper dental pain that started a week ago. She broke the tooth. She complains of pain to cold and hot liquids. She denies fever, chills night sweats. She denies history rheumatic fever, heart murmur, mitral valve prolapse, SBE or being immune suppressed. She denies skin lesions. She denies drooling or difficulty swallowing. Denies change in voice. She denies difficulty opening or closing her mouth completely. Exam is patient appears uncomfortable. Tooth #31. There is no peridental swelling. There is no trismus. There is no facial cellulitis. There is no preauricular lymphadenopathy. Heart is regular without murmur, gallop or rub. Medical Decision Making patient has symptomatic irreversible pulpitis. Patient was informed that nothing will alleviate the pain other than seeing a dentist. She will either need the tooth extracted or root canal. Other additions or changes: Patient was treated with pain medicine and antibiotic. She was discharged to home Discharge Plan Triage Chief Complaint: Dental ED Midlevel Provider: [place] [facility] ED Provider: Maico Bernard Dx/Rx/DC Orders Clinical Impression: Symptomatic irreversible pulpitis, Pain due to dental caries, Dental infection Instructions: ED Dental Pain Prescriptions: New penicillin V potassium 500 mg tablet 500 mg PO 4X/DAY Qty: 40 0RF naproxen [Naprosyn] 500 mg tablet 500 mg PO BID Qty: 20 0RF No Action famotidine [Pepcid] 20 mg tablet 20 mg PO DAILY PRN (Reason: acid reflux) omeprazole 20 capsule,delayed release(DR/EC) 20 mg PO DAILY hydroxyzine HCl 25 mg tablet 25 mg PO BID etonogestrel-ethinyl estradiol [NuvaRing] 0.12-0.015 mg/24 hr Ring 0.12 vag ring VAGINAL DAILY atomoxetine [Strattera] 40 mg Capsule 60 mg PO DAILY Latuda 20 mg Tablet 20 mg PO DAILY budesonide 3 mg capsule,delayed,extend.release 3 mg PO DAILY hydrocodone-acetaminophen [hydrocodone-acetaminophen] 5-325 mg tablet 1 tab PO Q6H PRN PRN (Reason: Pain) 3 Days Qty: 12 0RF dicyclomine 20 mg tablet See Rx Instructions .ROUTE .COMPLEX Qty: 90 3RF Dose Instruction: TAKE 1 TABLET BY MOUTH THREE TIMES DAILY NEEDED FOR CRAMPING. Rx Instructions: TAKE 1 TABLET BY MOUTH THREE TIMES DAILY NEEDED FOR CRAMPING. scopolamine base 1 mg over 3 days patch 3 day See Rx Instructions .ROUTE .COMPLEX Qty: 10 3RF Dose Instruction: APPLY PATCH TRANSDERMALLY EVERY 3 DAYS FOR 30 DAYS Rx Instructions: APPLY PATCH TRANSDERMALLY EVERY 3 DAYS FOR 30 DAYS Primary Care Provider: Radha Mantilla Referrals: Radha Mantilla MD [Primary Care Provider] - Activity Restrictions/Additional Instructions: Please follow-up with your dentist later this upcoming week. Take antibiotics, naproxen as needed. You may also use Tylenol Disposition Disposition: Home, Self Care Discharge Date/Time: 06/24/22 13:49
[2022-06-24] MEDS: Penicillin Vk 250 MG Tablet 500 MG PO (13:33)
== END 2022-06-24 13:49 | disposition home or self-care (01) ==
PROVIDERS: Emergency Provider Emergency Medicine; PCP Family Medicine; Visit Provider Emergency Medicine
DX: K04.7 Periapical abscess without sinus (principal); K02.9 Dental caries, unspecified; K04.02 Irreversible pulpitis; F90.9 Attention-deficit hyperactivity disorder, unspecified type; F41.8 Other specified anxiety disorders; J45.909 Unspecified asthma, uncomplicated; Z86.16 Personal history of COVID-19; K21.9 Gastro-esophageal reflux disease without esophagitis; Z79.899 Other long term (current) drug therapy; S02.5XXA Fracture of tooth (traumatic), initial encounter for closed fracture; X58.XXXA Exposure to other specified factors, initial encounter
CPT/HCPCS: 99283

== ENCOUNTER → 2022-07-03 | Outpatient (CLI) | payer MEDICAID, SELFPAY | END | disposition home or self-care (01) | PROVIDERS: PCP Family Medicine; Referring Provider Internal Medicine Gastroenterology; Visit Provider Internal Medicine Gastroenterology | DX: R05.9 Cough, unspecified (principal); R11.0 Nausea; K76.0 Fatty (change of) liver, not elsewhere classified | CPT/HCPCS: 87804; 87880 ==

== ENCOUNTER → 2022-09-07 | Outpatient (CLI) | payer MEDICAID, SELFPAY ==
[2022-09-07 17:57] LABS: Absolute Lymphocyte Count 3.47 X10^3/uL (0.83-4.51); Absolute Neutrophil Count 4.9 X10^3/uL (2.0-7.7); Basophil# 0.09 X10^3/uL; Eosinophil# 0.09 X10^3/uL; Hematocrit 37.3 % (37-47); Hemoglobin 12.6 g/dL (12.0-15.0); Lymphocyte # 3.47 X10^3/ul (0.83-4.51); Lymphocyte % 38.8 % (19-41); Mean Corp Hgb Conc 33.8 g/dL (32-36); Mean Corpuscular Hgb 28.4 pg (27.0-32.0); Mean Corpuscular Volume 84.2 fL (81-99); Monocyte# 0.41 X10^3/uL; Monocyte% 4.6 % (0-10); NRBC Flagged by Analyzer 0 % (0-5); Neutrophil # 4.86 X10^3/uL (2.7-7.7); Neutrophil % 54.4 % (47-70); Platelet Count 409 K/mm3 (150-450); RBC Distribution Width CV 13.2 % (11.6-14.6); RBC Distribution Width SD 40.6 fl (35.1-43.9); Red Blood Count 4.43 M/mm3 (4.2-5.4); White Blood Count 8.9 K/mm3 (4.4-11.0)
[2022-09-07 18:32] LABS: ALB/GLOB Ratio 0.8 RATIO (0.9-2.4); AST(SGOT) 17 U/L (15-37); Alanine Aminotransfer ALT/SGPT 35 U/L (13-56); Albumin, Serum 3.4 g/dL (3.2-5.0); Alkaline Phosphatase 102 U/L (45-117); Anion Gap 4 (5-15); BUN 8 mg/dL (7-18); BUN/Creat Ratio 13.9 RATIO (10-20); Calcium,Total 8.9 mg/dL (8.5-10.1); Chloride 107 mmol/L (98-107); Creatinine, Serum 0.58 mg/dL (0.55-1.02); EST Glomerular Filtration Rate 137 mL/min (>60); Est Glom Filt Rate - Afr Amer 165 mL/min (>60); Globulin 4.4 g/dL (2.2-4.2); Glucose 87 mg/dL (74-106); Potassium 3.7 mmol/L (3.5-5.1); Protein, Total 7.8 g/dL (6.4-8.2); Sodium Level 135 mmol/L (136-145); Thyroid Stim Hormone (TSH) 0.72 uIU/mL (0.358-3.74)
== END | disposition home or self-care (01) ==
PROVIDERS: PCP Family Medicine; Referring Provider Family Medicine; Visit Provider Family Medicine
DX: R03.0 Elevated blood-pressure reading, without diagnosis of hypertension (principal); K76.0 Fatty (change of) liver, not elsewhere classified; K21.00 Gastro-esophageal reflux disease with esophagitis, without bleeding
CPT/HCPCS: 36415; 80053; 84443; 85025

== ENCOUNTER → 2022-10-23 | Outpatient (CLI) | payer MEDICAID, SELFPAY ==
--- NOTE | 2022-10-23 07:59 | US_ITS ---
STUDY: ABDOMINAL ULTRASOUND - RIGHT UPPER QUADRANT REASON FOR VISIT: Female, 22 years old fatty liver TECHNIQUE: Ultrasound evaluation of the right upper quadrant was performed with real-time and static scherer-scale imaging. TECHNICAL QUALITY: Adequate. COMPARISON: Comparison is made with prior study of July 06, 2021. FINDINGS: Liver: The liver is enlarged and measures 20.9 cm. There is increased echogenicity consistent with fatty infiltration. The bile ducts are within normal limits. There is hepatic color flow. The direction of portal flow is hepatopetal. There is no demonstrated mass lesion. Gallbladder: Normal distended gallbladder. The gallbladder wall measures 1 mm. There is a negative sonographic Kirkpatrick''s sign. There is no pericholecystic fluid. There are no gallstones. Common Bile Duct (C.B.D.): The common bile duct measures 4 mm. Pancreas: Normal size of the head, body and tail of the pancreas. There is normal echogenicity of the pancreas. There is no demonstrated pancreatic mass or cyst. Right Kidney: Normal size of the right kidney. The right kidney measures 10.5 cm x 4.7 cm x 4.1 cm. Normal renal cortex. The right cortex measures 1.2 cm. There is no demonstrated renal mass or cyst. There is no right hydronephrosis. IMPRESSION: Hepatomegaly. Fatty infiltration of the liver. Electronically Signed: Marquis Summers MD at 15:03 EDT , STUDY: ABDOMINAL ULTRASOUND - ELASTOGRAPHY REASON FOR VISIT: Female, 22 years old. Hepatomegaly. Fatty infiltration of the liver. TECHNIQUE: Liver stiffness measurements were obtained on a Xigen 85 ultrasound machine using a CA 1-7 probe following the SRU guidelines. 3 measurements were obtained using a 2-D-SWE method. TheIQR/M was 12% suggesting a quality data set. TECHNICAL QUALITY: Adequate. COMPARISON: None. FINDINGS: Liver: There is no demonstrated mass lesion. Median liver stiffness measured 8 kPa. Abdomen: There is no demonstrated mass lesion. US/ABD Limited w/ Elastography IMPRESSION: Liver stiffness measures 8 kPa compatible with F2-F3 (Mild to moderate liver fibrosis) Metavir score. Electronically Signed: Marquis Summers MD at 15:04 EDT ,
== END | disposition home or self-care (01) ==
LOC: US 07:58
PROVIDERS: PCP Family Medicine; Referring Provider Internal Medicine Gastroenterology; Visit Provider Internal Medicine Gastroenterology
DX: R05.9 Cough, unspecified (principal); R11.0 Nausea; K76.0 Fatty (change of) liver, not elsewhere classified
CPT/HCPCS: 76705; 76981

== ENCOUNTER → 2023-01-11 | Outpatient (CLI) | payer MEDICAID, SELFPAY | END | disposition home or self-care (01) | LOC: MTLAB 15:47 | PROVIDERS: PCP Family Medicine; Visit Provider Internal Medicine Gastroenterology | DX: R05.9 Cough, unspecified (principal); R11.0 Nausea; K76.0 Fatty (change of) liver, not elsewhere classified | CPT/HCPCS: 87493 ==

== ENCOUNTER → 2023-01-12 | Outpatient (CLI) | payer MEDICAID, SELFPAY ==
[2023-01-18 14:09] LABS: Calprotectin, Stool 53 ug/g (0-120); Fats, Neutral Normal (.); Fats, Total Normal (.)
[2023-01-18 17:07] LABS: Pancreatic Elastase, Fecal 337 (>200)
== END | disposition home or self-care (01) ==
LOC: LAB 09:23
PROVIDERS: PCP Family Medicine; Referring Provider Internal Medicine Gastroenterology; Visit Provider Internal Medicine Gastroenterology
DX: K58.9 Irritable bowel syndrome, unspecified (principal); R05.9 Cough, unspecified; K76.0 Fatty (change of) liver, not elsewhere classified; R11.0 Nausea
CPT/HCPCS: 82653; 82705; 83630; 83993; 87177; 87209; 87329; 87506

== ENCOUNTER 2023-02-17 13:56 | Emergency (ER) | payer MEDICAID, SELFPAY ==
[2023-02-17 13:57] VITALS: BP 146/84; PULSE 109; RESP 16; TEMP 36.6; O2SAT 100; BMI 27.0
--- NOTE | 2023-02-17 14:07 | EKG12_ITS ---
Test Reason : Blood Pressure : / mmHG Vent. Rate : 101 BPM Atrial Rate : 101 BPM P-R Int : 134 ms QRS Dur : 082 ms QT Int : 350 ms P-R-T Axes : 034 056 026 degrees QTc Int : 453 ms Sinus tachycardia Otherwise normal ECG Confirmed by AUSTIN ROBINS, LICO ([id number]), social media editor WYATT PORTER ([id number]) on 02/20/2023 7:41:36 AM Referred By: RAUL Confirmed By:LICO AVILA MD
--- NOTE | 2023-02-17 14:11 | EDS_ITS ---
<Statement entered by Berlin Vasquez MD - 02/17/23 20:41> I have personally performed a face to face assessment of the patient and have reviewed the CHARY Note. HPI History of Present Illness Chief Complaint: Palpitations Narrative Narrative: 22 year old female with past medical history of anxiety, chronic abdominal issues presents with palpitations. Yesterday she had caffeine and developed heart rating up to 140 bpm on her apple watch. She felt nauseated and vomited once, This occurred again today while shopping but she had not have caffeine. Her chest feels tight but is not painful and her left arm tingles. No dyspnea. She states she has had similar symptoms in the past but not to this degree. She smokes pot daily. [facility] Medical History (Updated 02/17/23 @ 15:02 by GÉNESIS Ponce) ADHD Anxiety Asthma Back pain Bipolar disorder Chest pain Chronic neck and back pain COVID-19 Depression with anxiety Diarrhea Fatigue Fatty liver Gastroparesis GERD (gastroesophageal reflux disease) Hemorrhoids Knee pain Limb weakness Migraine headache Nausea Non-smoker Severe headache Shortness of breath on exertion SOB (shortness of breath) Weight loss, abnormal Home Medications omeprazole 20 mg capsule,delayed release 20 mg PO DAILY 06/04/18 [History Last Taken 07/13/21] hydroxyzine HCl 25 mg tablet 25 mg PO BID 10/20/20 [History Last Taken Unknown] famotidine 20 mg tablet (Pepcid) 20 mg PO DAILY PRN acid reflux 12/10/20 [History Last Taken Unknown] etonogestrel 0.12 mg-ethinyl estradiol 0.015 mg/24 hr vaginal ring (NuvaRing) 0.12 vag ring vaginal DAILY 01/01/21 [History Last Taken Unknown] atomoxetine 40 mg capsule (Strattera) 60 mg PO DAILY 07/12/21 [History Last Taken Unknown] lurasidone 20 mg tablet (Latuda) 20 mg PO DAILY bipolar 07/12/21 [History Last Taken 07/13/21] budesonide 3 mg capsule,delayed,extended release 3 mg PO DAILY IBS 10/18/21 [History Last Taken Unknown] dicyclomine 20 mg tablet See Rx Instructions .Route .COMPLEX #90 tabs 10/31/21 [Rx Last Taken Unknown] hydrocodone-acetaminophen 5-325mg 5mg-325mg 1 tab PO Q6H PRN PRN Pain 3 days #12 TABLETS 02/14/22 [Rx Last Taken Unknown] naproxen 500 mg tablet (Naprosyn) 500 mg PO BID #20 tabs 06/24/22 [Rx Last Taken Unknown] penicillin V potassium 500 mg tablet 500 mg PO 4X/DAY #40 tabs 06/24/22 [Rx Last Taken Unknown] hydrocortisone acetate 30 mg rectal suppository 30 mg MD BID #12 ea 10/26/22 [Rx Last Taken Unknown] prochlorperazine 25 mg rectal suppository (Compazine) 25 mg MD BID PRN nausea and vomiting #12 ea 01/18/23 [Rx Last Taken Unknown] scopolamine base 1 mg over 3 days transdermal patch See Rx Instructions .Route .COMPLEX #10 patches 01/18/23 [Rx Last Taken Unknown] alprazolam 1 mg tablet 1 mg PO QHS PRN sleep #14 tabs 02/02/23 [Rx Last Taken Unknown] hyoscyamine sulfate 0.125 mg tablet 0.125 mg PO BID-QID PRN dyspepsia #30 tabs 02/02/23 [Rx Last Taken Unknown] Allergy/AdvReac Type Severity Reaction Status Date / Time No Known Allergies Allergy Verified 02/17/23 13:59 Family History Other Alcoholism Anxiety Arthritis Asthma DVT (deep venous thrombosis) Depression Diabetes Epilepsy Heart disease Hyperlipidemia Hypertension Kidney disease Liver disease Mental disorder Myocardial infarction Respiratory system disease Skin cancer Surgical History History of esophagogastroduodenoscopy (EGD) Hx of colonoscopy [place] teeth removed Social History household members: none housing: house Smoking Status: Never smoker alcohol intake: current alcohol intake frequency: a few times a month substance use type: marijuana what type of physical activity do you participate in: none do you feel safe at home: Yes ROS ROS ED ROS Narrative Constitutional: Negative for fever, chills, malaise. CVS: Positive for palpitations. Negative for chest pain, syncope. Respiratory: Negative for shortness of breath, cough. GI: Positive for nausea, vomiting. Negative for abdominal pain. Neuro: Negative for headache. EXAM Physical Exam Narrative Exam Narrative: CONST: Patient sitting in no acute distress. EYES: Normal inspection. ENT: Normal inspection, moist mucous membranes. NECK: Normal inspection. RESP: No respiratory distress, CTAB. CVS: Regular rate and rhythm around 100 bpm, no murmur, no gallop. ABD: Soft and nontender, no guarding or rebound, nondistended, no hepatosplenomegaly. SKIN: Color normal, no rash, warm, dry, intact. EXTREMITIES: Normal appearance, no pedal edema. NEURO: Oriented x4. PSYCH: Normal affect. Const Vital Signs: 02/17/23 13:57 02/17/23 14:41 Temperature 98 F Temperature Source Temporal Pulse Rate 109 H Respiratory Rate 16 Respiratory Effort Normal Blood Pressure 146/84 H Blood Pressure Mean 104 Pulse Ox 100 Oxygen Delivery Method Room Air MDM MDM MDM Narrative Medical decision making narrative: History gathered from patient and mom. Patient has had 2 days of intermittent palpitations which she states caused her to vomit. She states she has chronic abdominal issues and vomits very easily. She appears well and nontoxic. Heart rate is between 100-110 in sinus rhythm with no murmurs. Lungs are clear. She is in no distress. CBC and BMP are unremarkable. test is negative. EKG is in sinus with no ischemic changes. She has no chest pain or shortness of breath so do not think cardiac enzymes or D-dimer are indicated. I recommended avoidance of caffeine, increasing hydration, and follow-up with her primary care doctor. She was discharged in stable condition. Lab Data Attestation: I reviewed the patient's lab results. Labs: Laboratory Results - last 24 hr 02/17/23 14:35 WBC 9.5 RBC 4.52 Hgb 12.9 Hct 37.5 MCV 83.0 MCH 28.5 MCHC 34.4 RDW Std Deviation 39.8 RDW Coeff of Adalberto 13.3 Plt Count 394 MPV 8.7 Immature Gran % (Auto) 0.200 Neut % (Auto) 54.7 Lymph % (Auto) 38.6 [place] % (Auto) 4.5 Eos % (Auto) 1.0 Baso % (Auto) 1.0 Absolute Neuts (auto) 5.2 Absolute Lymphs (auto) 3.68 Nucleated RBC % 0 Sodium 137 Potassium 3.5 Chloride 104 Carbon Dioxide 29.0 Anion Gap 4 L BUN 5 L Creatinine 0.74 Estim Creat Clear Calc 122.51 Est GFR (MDRD) Af Amer 123 Est GFR (MDRD) Non-Af 101 BUN/Creatinine Ratio 6.7 L Glucose 104 Calcium 9.3 Serum , Qual NEGATIVE EKG Initial EKG: Attestation: I personally reviewed and interpreted this EKG as follows: Interpretation: Sinus Rhythm and No Acute Injury Pattern Comments: Sinus tachycardia at 101 bpm No ectopy or ischemic changes Discharge Plan Triage Chief Complaint: Palpitations ED Midlevel Provider: Yamel Veloz ED Provider: Berlin Vasquez Dx/Rx/DC Orders Clinical Impression: Palpitations Prescriptions: No Action famotidine [Pepcid] 20 mg tablet 20 mg PO DAILY PRN (Reason: acid reflux) hyoscyamine sulfate 0.125 mg tablet 0.125 mg PO BID-QID PRN (Reason: dyspepsia) Qty: 30 2RF alprazolam 1 mg tablet 1 mg PO QHS PRN (Reason: sleep) Qty: 14 0RF omeprazole 20 capsule,delayed release(DR/EC) 20 mg PO DAILY hydroxyzine HCl 25 mg tablet 25 mg PO BID etonogestrel-ethinyl estradiol [NuvaRing] 0.12-0.015 mg/24 hr Ring 0.12 vag ring VAGINAL DAILY atomoxetine [Strattera] 40 mg Capsule 60 mg PO DAILY lurasidone [Latuda] 20 mg Tablet 20 mg PO DAILY budesonide 3 mg capsule,delayed,extend.release 3 mg PO DAILY hydrocodone-acetaminophen [hydrocodone-acetaminophen] 5-325 mg tablet 1 tab PO Q6H PRN PRN (Reason: Pain) 3 Days Qty: 12 0RF penicillin V potassium 500 mg tablet 500 mg PO 4X/DAY Qty: 40 0RF naproxen [Naprosyn] 500 mg tablet 500 mg PO BID Qty: 20 0RF dicyclomine 20 mg tablet See Rx Instructions .ROUTE .COMPLEX Qty: 90 3RF Dose Instruction: TAKE 1 TABLET BY MOUTH THREE TIMES DAILY NEEDED FOR CRAMPING. Rx Instructions: TAKE 1 TABLET BY MOUTH THREE TIMES DAILY NEEDED FOR CRAMPING. hydrocortisone acetate 30 mg suppository 30 mg MD BID Qty: 12 1RF prochlorperazine [Compazine] 25 mg suppository 25 mg MD BID PRN (Reason: nausea and vomiting) Qty: 12 3RF scopolamine base 1 mg over 3 days patch 3 day See Rx Instructions .ROUTE .COMPLEX Qty: 10 3RF Dose Instruction: APPLY PATCH TRANSDERMALLY EVERY 3 DAYS FOR 30 DAYS Rx Instructions: APPLY PATCH TRANSDERMALLY EVERY 3 DAYS FOR 30 DAYS Primary Care Provider: Radha Mantilla Referrals: Radha Mantilla MD [Primary Care Provider] - Activity Restrictions/Additional Instructions: Your heart is in regular rhythm and your testing today looks normal. I recommend following up with your primary care doctor. Disposition Disposition: Home, Self Care
[2023-02-17] MEDS: Ondansetron 4 MG/2 ML Vial IV (14:38)
[2023-02-17 14:47] LABS: Absolute Lymphocyte Count 3.68 X10^3/uL (0.83-4.51); Absolute Neutrophil Count 5.2 X10^3/uL (2.0-7.7); Hematocrit 37.5 % (37-47); Hemoglobin 12.9 g/dL (12.0-15.0); Lymphocyte # 3.68 X10^3/ul (0.83-4.51); Lymphocyte % 38.6 % (19-41); Mean Corp Hgb Conc 34.4 g/dL (32-36); Mean Corpuscular Hgb 28.5 pg (27.0-32.0); Mean Platelet Vol. 8.7 fl (6.2-12.0); Monocyte# 0.43 X10^3/uL; Monocyte% 4.5 % (0-10); NRBC Flagged by Analyzer 0 % (0-5); Neutrophil # 5.21 X10^3/uL (2.7-7.7); Neutrophil % 54.7 % (47-70); Platelet Count 394 K/mm3 (150-450); RBC Distribution Width CV 13.3 % (11.6-14.6); RBC Distribution Width SD 39.8 fl (35.1-43.9); Red Blood Count 4.52 M/mm3 (4.2-5.4); White Blood Count 9.5 K/mm3 (4.4-11.0)
[2023-02-17 14:59] LABS: Internal QC Validated? YES +Cl - CLEAR BKGD; Pregnancy, Serum, hCG Quali. NEGATIVE Negative
[2023-02-17 15:00] LABS: Anion Gap 4 (5-15); BUN 5 mg/dL (7-18); BUN/Creat Ratio 6.7 RATIO (10-20); Calcium,Total 9.3 mg/dL (8.5-10.1); Chloride 104 mmol/L (98-107); Creatinine, Serum 0.74 mg/dL (0.55-1.02); EST Glomerular Filtration Rate 101 mL/min (>60); Est Glom Filt Rate - Afr Amer 123 mL/min (>60); Estimated Creatinine Clearance 122.51 ml/min; Glucose 104 mg/dL (74-106); Potassium 3.5 mmol/L (3.5-5.1); Sodium Level 137 mmol/L (136-145)
[2023-02-17 15:10] VITALS: BP 114/82; PULSE 108; RESP 20; TEMP 37.7
== END 2023-02-17 15:11 | disposition home or self-care (01) ==
PROVIDERS: Physician Assistant; Emergency Provider Emergency Medicine; PCP Family Medicine; Visit Provider Emergency Medicine
DX: R00.2 Palpitations (principal); K21.9 Gastro-esophageal reflux disease without esophagitis; F41.8 Other specified anxiety disorders; Z79.899 Other long term (current) drug therapy; Z79.3 Long term (current) use of hormonal contraceptives
CPT/HCPCS: 80048; 84703; 85025; 93005; 96374; 99282; J7030; A4216; J2405

== ENCOUNTER 2023-09-24 14:01 | Emergency (ER) | payer OTHER, MEDICAID, SELFPAY ==
[2023-09-24 14:02] VITALS: BP 155/101; PULSE 106; RESP 18; TEMP 36.6; O2SAT 99; BMI 27.3
--- NOTE | 2023-09-24 14:22 | ED.RN ---
Pt's mother angry that pt cannot wait in car, RN explains pt needs to wait in triage area so this RN can observe pt and also pt will be available when name called. Pt currently waiting on ED room, laying across 3 chairs in hallway with eyes closed.
--- NOTE | 2023-09-24 14:33 | EDS_ITS ---
HPI History of Present Illness Chief Complaint: Headache Informant: patient Onset/Context/Timing Onset: Yesterday Current Severity: Severe Maximum Severity: Severe Narrative Narrative: Patient presents secondary to migraine headache along with right ear pain. She has a history of migraines and developed a headache yesterday. She has had vomiting and unable to keep anything down. She denies recent head injury or URI symptoms. After vomiting with her migraine she now has significant right ear pain. She gently used a Q-tip to her right ear noted blood and is concerned that she may have ruptured her tympanic membrane. [facility] Medical History ADHD Anal fissure Anxiety Asthma Back pain Bipolar disorder Chest pain Chronic neck and back pain COVID-19 Depression with anxiety Diarrhea Essential hypertension affecting Fatigue Fatty liver Gastroparesis GERD (gastroesophageal reflux disease) Hemorrhoids Knee pain Limb weakness Migraine headache Nausea Non-smoker Severe headache Shortness of breath on exertion SOB (shortness of breath) Tachycardia Weight loss, abnormal Home Medications omeprazole 20 mg capsule,delayed release 20 mg PO DAILY 06/04/18 [History Last Taken 07/13/21] hydroxyzine HCl 25 mg tablet 25 mg PO BID 10/20/20 [History Last Taken Unknown] famotidine 20 mg tablet (Pepcid) 20 mg PO DAILY PRN acid reflux 12/10/20 [History Last Taken Unknown] etonogestrel 0.12 mg-ethinyl estradiol 0.015 mg/24 hr vaginal ring (NuvaRing) 0.12 vag ring vaginal DAILY 01/01/21 [History Last Taken Unknown] atomoxetine 40 mg capsule (Strattera) 60 mg PO DAILY 07/12/21 [History Last Taken Unknown] lurasidone 20 mg tablet (Latuda) 20 mg PO DAILY bipolar 07/12/21 [History Last Taken 07/13/21] budesonide 3 mg capsule,delayed,extended release 3 mg PO DAILY IBS 10/18/21 [History Last Taken Unknown] dicyclomine 20 mg tablet See Rx Instructions .Route .COMPLEX #90 tabs 10/31/21 [Rx Last Taken Unknown] prochlorperazine 25 mg rectal suppository (Compazine) 25 mg MA BID PRN nausea and vomiting #12 ea 01/18/23 [Rx Last Taken Unknown] fluticasone propionate 50 mcg/actuation nasal spray,suspension intranasal 04/19/23 [History Last Taken Unknown] loperamide 2 mg capsule mg PO 04/19/23 [History Last Taken Unknown] scopolamine base 1 mg over 3 days transdermal patch See Rx Instructions .Route .COMPLEX PRN nausea and vomiting #10 patches 06/05/23 [Rx Last Taken Unknown] amoxicillin 500 mg capsule 500 mg PO TID #30 caps 09/24/23 [Rx Last Taken Unknown] Allergy/AdvReac Type Severity Reaction Status Date / Time No Known Allergies Allergy Verified 09/24/23 14:04 Family History Other Alcoholism Anxiety Arthritis Asthma DVT (deep venous thrombosis) Depression Diabetes Epilepsy Heart disease Hyperlipidemia Hypertension Kidney disease Liver disease Mental disorder Myocardial infarction Respiratory system disease Skin cancer Surgical History History of esophagogastroduodenoscopy (EGD) Hx of colonoscopy [place] teeth removed Social History household members: none housing: house Smoking Status: Never smoker alcohol intake: current alcohol intake frequency: a few times a month substance use type: marijuana what type of physical activity do you participate in: none do you feel safe at home: Yes ROS ROS ED Constitutional Constitutional ED: Denies chills or fever(s) Eyes Eyes: Denies change in vision or discharge from eye(s) ENT ENT ED: Reports ear pain right; Denies discharge from eye(s), rhinorrhea or sore throat Cardiovascular Cardiovascular: Denies chest pain or palpitations Respiratory/Chest Respiratory/Chest: Denies cough or dyspnea Gastrointestinal Gastrointestinal: Reports nausea and vomiting; Denies abdominal pain Musculoskeletal Musculoskeletal: Denies back pain or extremity pain Integumentary Denies Abrasions or rash Neurologic Neurologic: Reports headache(s); Denies paresthesias or weakness Psychiatric Psychiatric: Denies anxiety or depression Allergic/Immunologic Allergic/Immunologic ED: Denies lip swelling or urticaria EXAM Physical Exam Const Vital Signs: 09/24/23 14:02 Temperature 97.8 F Temperature Source Temporal Pulse Rate 106 H Respiratory Rate 18 Blood Pressure 155/101 H Blood Pressure Mean 119 Pulse Ox 99 Oxygen Delivery Method Room Air Positive well nourished and well developed General Appearance ED: well developed HEENT Reports normocephalic and moist mucous membranes HEENT Narrative: Right TM with small rupture. Air bubbles noted along with blood external to the TM. Eyes EOMs intact bilaterally Resp normal respiratory effort and clear to auscultation bilaterally Cardio regular rate and regular rhythm GI non-tender Auscultation: normoactive bowel sounds Extremity normal to inspection Neuro oriented x3 and no sensory deficits noted Motor Exam: strength 5/5 throughout Psych Mood & Affect: tearful Skin Lesions: no lesions Rashes: no rashes MDM MDM MDM Narrative Medical decision making narrative: IV line established. Patient given fluids along with Toradol, Compazine, and Benadryl. Small cottonball placed to the external ear canal on the right. On repeat evaluation patient reports her migraine is resolved. She feels much better. She will be given a prescription for amoxicillin to prevent ear infection. She was referred to ENT for follow-up. Return instructions provided. Discharge Plan Triage Chief Complaint: Headache ED Provider: Arlene Johnson Dx/Rx/DC Orders Clinical Impression: Rupture of right tympanic membrane, Migraine Instructions: ED, Migraine (Classical), ED PERFORATED TM Infected [Adult] Prescriptions: New amoxicillin 500 mg capsule 500 mg PO TID Qty: 30 0RF No Action famotidine [Pepcid] 20 mg tablet 20 mg PO DAILY PRN (Reason: acid reflux) loperamide 2 mg capsule PO Patient Comments: TAKE 1 CAPSULE BY MOUTH EVERY 4 HOURS NEEDED . DO NOT EXCEED 4 PER 24 HOURS fluticasone propionate 50 mcg/actuation spray,suspension intranasal Patient Comments: USE 1 SPRAY(S) IN EACH NOSTRIL TWICE DAILY omeprazole 20 capsule,delayed release(DR/EC) 20 mg PO DAILY hydroxyzine HCl 25 mg tablet 25 mg PO BID etonogestrel-ethinyl estradiol [NuvaRing] 0.12-0.015 mg/24 hr Ring 0.12 vag ring VAGINAL DAILY atomoxetine [Strattera] 40 mg Capsule 60 mg PO DAILY lurasidone [Latuda] 20 mg Tablet 20 mg PO DAILY budesonide 3 mg capsule,delayed,extend.release 3 mg PO DAILY dicyclomine 20 mg tablet See Rx Instructions .ROUTE .COMPLEX Qty: 90 3RF Dose Instruction: TAKE 1 TABLET BY MOUTH THREE TIMES DAILY NEEDED FOR CRAMPING. Rx Instructions: TAKE 1 TABLET BY MOUTH THREE TIMES DAILY NEEDED FOR CRAMPING. prochlorperazine [Compazine] 25 mg suppository 25 mg MA BID PRN (Reason: nausea and vomiting) Qty: 12 3RF scopolamine base 1 mg over 3 days patch 3 day See Rx Instructions .ROUTE .COMPLEX PRN (Reason: nausea and vomiting) Qty: 10 0RF Dose Instruction: APPLY PATCH TRANSDERMALLY EVERY 3 DAYS FOR 30 DAYS Rx Instructions: APPLY PATCH TRANSDERMALLY EVERY 3 DAYS FOR 30 DAYS PRN; Primary Care Provider: Radha Mantilla Referrals: Earl Adams MD [Med Staff - Active Staff] - 5-7 Days Radha Mantilla MD [Primary Care Provider] - As Needed Disposition Disposition: Home, Self Care
[2023-09-24] MEDS: Ketorolac 30 MG/ML Syringe IV (14:51)
[2023-09-24] MEDS: DiphenhydrAMINE 50 MG/ML Syringe 25 MG IV (14:51)
[2023-09-24] MEDS: 0.9% Normal Saline (1000mL) 1,000 ML 999 ML IV (14:52)
[2023-09-24] MEDS: proCHLORPERazine 10 MG/2 ML Vial IV (15:13)
[2023-09-24 16:00] VITALS: BP 136/90; PULSE 74; RESP 16; TEMP 36.6; O2SAT 99
== END 2023-09-24 16:01 | disposition home or self-care (01) ==
PROVIDERS: Emergency Provider Emergency Medicine; PCP Family Medicine; Visit Provider Emergency Medicine
DX: G43.909 Migraine, unspecified, not intractable, without status migrainosus (principal); F31.9 Bipolar disorder, unspecified; H72.91 Unspecified perforation of tympanic membrane, right ear; K21.9 Gastro-esophageal reflux disease without esophagitis; F41.9 Anxiety disorder, unspecified; F90.9 Attention-deficit hyperactivity disorder, unspecified type; J45.909 Unspecified asthma, uncomplicated; Z79.51 Long term (current) use of inhaled steroids; R11.10 Vomiting, unspecified; X58.XXXA Exposure to other specified factors, initial encounter
CPT/HCPCS: 96374; 96375; 99283; J7030; A4216

== ENCOUNTER → 2023-12-19 | Outpatient (CLI) | payer OTHER, SELFPAY ==
[2023-12-25 11:59] LABS: Chlamydia By Nucleic Acid AMP Negative (Negative); Gonococcus By Nucleic Acid AMP Negative (Negative)
[2023-12-25 12:19] LABS: HPV Reflexed? NOT INDICATED
== END | disposition home or self-care (01) ==
LOC: LABSPEC 13:16
PROVIDERS: PCP Family Medicine; Referring Provider Nurse Practitioner Women's Health; Visit Provider Nurse Practitioner Women's Health
DX: Z11.3 Encounter for screening for infections with a predominantly sexual mode of transmission (principal); Z12.4 Encounter for screening for malignant neoplasm of cervix
CPT/HCPCS: 87491; 87591; 88175; G0145

== ENCOUNTER → 2024-03-31 | Outpatient (CLI) | payer OTHER, SELFPAY ==
[2024-04-01 21:07] LABS: Chlamydia By Nucleic Acid AMP Negative (Negative); Gonococcus By Nucleic Acid AMP Negative (Negative)
== END | disposition home or self-care (01) ==
LOC: BWCLAB 11:24
PROVIDERS: PCP Family Medicine; Referring Provider Nurse Practitioner Women's Health; Visit Provider Nurse Practitioner Women's Health
DX: Z11.3 Encounter for screening for infections with a predominantly sexual mode of transmission (principal)
CPT/HCPCS: 87491; 87591

== ENCOUNTER → 2024-06-23 | Outpatient (CLI) | payer OTHER, SELFPAY ==
--- NOTE | 2024-06-23 09:16 | US_ITS ---
PROCEDURE: ABD LIMITED W/ ELASTOGRAPHY REASON FOR EXAM: Fatty infiltration of the liver. COMPARISON: Comparison is made with prior study dated October 23, 2022. TECHNIQUE: Right upper quadrant abdominal ultrasound. tab ticketbroker ElastQ Imaging shear wave elastography for non-invasive assessment of liver tissue stiffness. tab ticketbroker EPIQ Elite. FINDINGS: LIVER: Size: Borderline hepatomegaly. Length: 18 cm Echotexture: Diffusely echogenic suggesting fatty infiltration Contour: Normal Lesions: None identified Elastography: EQI Med: 4.6 kPa EQI Med Gamaliel: 1.24 m/s IQR/Med: 60 %* GALLBLADDER: Normal COMMON BILE DUCT: Normal . PANCREAS: Normal Visualized portions of the right kidney are unremarkable. No right upper quadrant ascites. US/ABD Limited w/ Elastography IMPRESSION: NO TO MILD HEPATIC FIBROSIS Reference Values: SRU <1.37 m/s (5.7kPa): No to mild fibrosis 1.37 m/s - 2.2 m/s: Moderate to severe fibrosis >2.2 m/s (15kPa): Significant fibrosis / cirrhosis METAVIR Score F2 or higher: 1.34 m/s (5.7kPa) F3 or higher: 1.55 m/s (7.3kPa) F4: 1.80 m/s (10kPa) * If the IQR/Med is >30%, the variance in the measurements is a large and the a ccuracy of the measurement may be in question. Reading Location: [place] [id number]
== END | disposition home or self-care (01) ==
LOC: US 09:16
PROVIDERS: PCP Family Medicine; Referring Provider Internal Medicine Gastroenterology; Visit Provider Internal Medicine Gastroenterology
DX: K76.0 Fatty (change of) liver, not elsewhere classified (principal)
CPT/HCPCS: 76705; 76981

== ENCOUNTER 2024-07-10 08:46 | Outpatient (CLI) | payer OTHER, SELFPAY ==
[2024-07-10 09:43] LABS: Absolute Lymphocyte Count 2.29 X10^3/uL (0.83-4.51); Basophil# 0.06 X10^3/uL; Basophil% 0.9 % (0-1); Eosinophils% 1.5 % (0-5); Hematocrit 37.2 % (37-47); Hemoglobin 12.5 g/dL (12.0-15.0); Lymphocyte # 2.29 X10^3/ul (0.83-4.51); Lymphocyte % 33.4 % (19-41); Mean Corp Hgb Conc 33.6 g/dL (32-36); Mean Corpuscular Hgb 29.2 pg (27.0-32.0); Mean Corpuscular Volume 86.9 fL (81-99); Mean Platelet Vol. 9.2 fl (6.2-12.0); Monocyte# 0.39 X10^3/uL; Monocyte% 5.7 % (0-10); NRBC Flagged by Analyzer 0 % (0-5); Neutrophil % 58.2 % (47-70); Platelet Count 430 K/mm3 (150-450); RBC Distribution Width CV 13.5 % (11.6-14.6); RBC Distribution Width SD 42.9 fl (35.1-43.9); Red Blood Count 4.28 M/mm3 (4.2-5.4); White Blood Count 6.9 K/mm3 (4.4-11.0)
[2024-07-10 10:09] LABS: Erythrocyte Sedimentation Rate 9 mm/hr (0-30)
[2024-07-10 11:09] LABS: HIV Nonreactive (Nonreactive); Hepatitis C Antibody Nonreactive (Nonreactive); Syphilis Antibodies Nonreactive (Nonreactive)
[2024-07-10 13:28] LABS: ALB/GLOB Ratio 1.3 RATIO (0.9-2.4); AST(SGOT) 45 U/L (<=31); Alanine Aminotransfer ALT/SGPT 62 U/L (<=34); Albumin, Serum 4.4 g/dL (3.5-5.0); Alkaline Phosphatase 90 U/L (35-104); Anion Gap 13 (5-15); BUN 10 mg/dL (4-19); BUN/Creat Ratio 14.6 RATIO (10-20); Calcium 9.8 mg/dL (7.6-11.0); Carbon Dioxide 22.7 mmol/L (22.0-29.0); Chloride 104 mmol/L (96-108); Creatinine, Serum 0.7 mg/dL (0.6-1.0); EST Glomerular Filtration Rate 120 (>60); Globulin 3.5 g/dL (2.2-4.2); Glucose 94 mg/dL (70-99); Protein, Total 7.8 g/dL (5.9-8.4); Sodium Level 139 mmol/L (133-145); Total Bilirubin 0.53 mg/dL (0.00-1.30)
[2024-07-10 20:13] LABS: CRP 7.53 mg/L (0.0-3.0)
== END 2024-07-10 23:59 | disposition home or self-care (01) ==
PROVIDERS: PCP Family Medicine; Referring Provider Nurse Practitioner Women's Health; Visit Provider Psychiatry & Neurology Neurology
DX: Z00.00 Encounter for general adult medical examination without abnormal findings (principal)
CPT/HCPCS: 36415; 80053; 85025; 85652; 86140; 86695; 86696; 86703; 86780; 86803

== ENCOUNTER 2024-09-22 13:58 | Emergency (ER) | payer OTHER, SELFPAY ==
[2024-09-22 14:00] VITALS: BP 117/82; PULSE 100; RESP 16; TEMP 35.8; O2SAT 99; BMI 27.6
== END 2024-09-22 15:02 | disposition left against medical advice (07) ==
LOC: ED 15:02
PROVIDERS: PCP Family Medicine
DX: K92.2 Gastrointestinal hemorrhage, unspecified (principal)

== ENCOUNTER → 2024-09-25 | Outpatient (CLI) | payer OTHER, SELFPAY ==
[2024-09-25 14:57] LABS: Absolute Lymphocyte Count 2.68 X10^3/uL (0.83-4.51); Absolute Neutrophil Count 5.3 X10^3/uL (2.0-7.7); Basophil# 0.08 X10^3/uL; Basophil% 0.9 % (0-1); Eosinophil# 0.09 X10^3/uL; Hematocrit 36.5 % (37-47); Hemoglobin 12.6 g/dL (12.0-15.0); Lymphocyte # 2.68 X10^3/ul (0.83-4.51); Lymphocyte % 30.6 % (19-41); Mean Corp Hgb Conc 34.5 g/dL (32-36); Mean Corpuscular Hgb 29.2 pg (27.0-32.0); Mean Corpuscular Volume 84.7 fL (81-99); Mean Platelet Vol. 9.2 fl (6.2-12.0); Monocyte# 0.55 X10^3/uL; Monocyte% 6.3 % (0-10); NRBC Flagged by Analyzer 0 % (0-5); Neutrophil # 5.34 X10^3/uL (2.7-7.7); Neutrophil % 60.9 % (47-70); Platelet Count 372 K/mm3 (150-450); RBC Distribution Width CV 13.3 % (11.6-14.6); RBC Distribution Width SD 41.1 fl (35.1-43.9); Red Blood Count 4.31 M/mm3 (4.2-5.4); White Blood Count 8.8 K/mm3 (4.4-11.0)
[2024-09-25 15:34] LABS: ALB/GLOB Ratio 1.3 RATIO (0.9-2.4); AST(SGOT) 27 U/L (<=31); Alanine Aminotransfer ALT/SGPT 30 U/L (<=34); Albumin, Serum 4.4 g/dL (3.5-5.0); Alkaline Phosphatase 89 U/L (35-104); Anion Gap 11 (5-15); BUN 8 mg/dL (4-19); BUN/Creat Ratio 12.9 RATIO (10-20); Calcium,Total 9.7 mg/dL (7.6-11.0); Chloride 103 mmol/L (98-108); Creatinine, Serum 0.66 mg/dL (0.70-1.20); EST Glomerular Filtration Rate 124 (>60); Erythrocyte Sedimentation Rate 8 mm/hr (0-30); Globulin 3.4 g/dL (2.2-4.2); Glucose 100 mg/dL (70-99); Potassium 3.6 mmol/L (3.3-5.1); Protein, Total 7.8 g/dL (5.9-8.4); Sodium Level 137 mmol/L (133-145); Total Bilirubin 0.36 mg/dL (0.00-1.30)
[2024-09-25 16:31] LABS: Amylase 50 U/L (28-100); LDH 166 U/L (84-246); Lipase 27 U/L (13-75)
== END | disposition home or self-care (01) ==
LOC: LAB 14:11
PROVIDERS: PCP Family Medicine; Referring Provider Internal Medicine Gastroenterology; Visit Provider Internal Medicine Gastroenterology
DX: R19.7 Diarrhea, unspecified (principal)
CPT/HCPCS: 36415; 80053; 82150; 83516; 83615; 83690; 85025; 85652; 86036; 86140; 86671

== ENCOUNTER → 2025-01-09 | Outpatient (CLI) | payer OTHER, SELFPAY ==
[2025-01-09 11:49] LABS: Hematocrit 37.6 % (37-47); Hemoglobin 12.6 g/dL (12.0-15.0); Immature Granulocytes Count 0.020 X10^3/uL (0.0-0.0); Mean Corp Hgb Conc 33.5 g/dL (32-36); Mean Corpuscular Volume 86.6 fL (81-99); Mean Platelet Vol. 9.1 fl (6.2-12.0); NRBC Flagged by Analyzer 0 % (0-5); Platelet Count 373 K/mm3 (150-450); RBC Distribution Width CV 13.6 % (11.6-14.6); RBC Distribution Width SD 43.2 fl (35.1-43.9); Red Blood Count 4.34 M/mm3 (4.2-5.4); White Blood Count 7.8 K/mm3 (4.4-11.0)
[2025-01-09 12:40] LABS: Anion Gap 12 (5-15); BUN 7 mg/dL (4-19); BUN/Creat Ratio 7.7 RATIO (10-20); Calcium,Total 9.4 mg/dL (7.6-11.0); Carbon Dioxide 23.5 mmol/L (21.0-32.0); Chloride 103 mmol/L (98-108); Glucose 94 mg/dL (70-99); Magnesium 2.2 mg/dL (1.5-2.2); Potassium 4.6 mmol/L (3.3-5.1)
[2025-01-09 13:08] LABS: Free T3 3.4 pg/mL (2.18-3.98); Vitamin D,25 Hydroxy 34.5 ng/mL (30-100)
[2025-01-13 14:08] LABS: Dopamine, Pl 15.9 pg/mL (0.0-36.7); Epinephrine, Pl 10.7 pg/mL (0.0-55.4); Norepinephrine, Pl 526 pg/mL (115-524)
== END | disposition home or self-care (01) ==
LOC: LAB 11:14
PROVIDERS: PCP Family Medicine; Referring Provider Nurse Practitioner Gerontology; Visit Provider Nurse Practitioner Gerontology
DX: R00.0 Tachycardia, unspecified (principal); R00.2 Palpitations; I10 Essential (primary) hypertension; E55.9 Vitamin D deficiency, unspecified
CPT/HCPCS: 36415; 80048; 82306; 82384; 83735; 84439; 84443; 84481; 85025

== ENCOUNTER → 2025-02-16 | Outpatient (CLI) | payer OTHER, SELFPAY ==
--- NOTE | 2025-02-16 10:47 | ECHOCS_ITS ---
Reason For Study Reason For Study: Palpitations Procedure This was a 2D Doppler, Color Flow transthoracic echocardiogram. The study was technically difficult. Contrast injection was performed. Exam performed in department. Left Ventricle Normal LV size. Left ventricular systolic function is normal. The rest of the wall segments are normal. Right Ventricle Normal RV size. Normal systolic function. Atria Normal left atrium. Normal right atrium. Mitral Valve Normal mitral valve. Tricuspid Valve Normal tricuspid valve. Mild (1+) tricuspid valve insufficiency. Aortic Valve Normal aortic valve. Trisinus/trileaflet aortic valve. Pulmonic Valve Normal pulmonic valve. Great Vessels Normal aortic root. The pulmonary artery is normal size. Normal inferior vena cava. Pericardium/Pleural No pericardial effusion. Medication 22 gauge I.V. with prn adaptor inserted into left arm. Diluted definity 1ml given slow IV push to enhance endocardial definition. No chance of confirmed before Definity was used. MMode/2D Measurements & Calculations LVIDd: 3.9 cm IVSd: 0.78 cm Ao root diam: 2.6 cm LVIDs: 2.6 cm LVPWd: 0.75 cm RVDd: 3.2 cm FS: 33.4 % LAV(MOD-bp): 32.9 ml LVAd ap4: 27.9 cm2 SV(MOD-sp4): 47.6 ml LAV(MOD-bp) Indexed: 16.5 ml/m2 LVLd ap4: 8.2 cm SI(MOD-sp4): 23.8 ml/m2 LAV(MOD-sp2): 33.3 ml EDV(MOD-sp4): 77.2 ml LAV(MOD-sp4): 27.3 ml EDV(sp4-el): 80.6 ml LVAs ap4: 16.0 cm2 LVLs ap4: 7.0 cm ESV(MOD-sp4): 29.6 ml ESV(sp4-el): 30.9 ml EF(MOD-sp4): 61.7 % EF(sp4-el): 61.6 % SV(sp4-el): 49.7 ml LA A4 area: 13.0 cm2 LA dimension(2D): 2.9 cm RA A4 area: 10.9 cm2 Time Measurements MV dec time: 0.18 sec Doppler Measurements & Calculations MV E max gamaliel: 87.3 cm/sec Lat Peak E' Gamaliel: 20.8 cm/sec Med Peak E' Gamaliel: 18.1 cm/sec MV A max gamaliel: 62.7 cm/sec E/E' lat: 4.2 E/E' med: 4.8 MV E/A: 1.4 MV V2 max: 104.8 cm/sec MV P1/2t max gamaliel: 103.9 cm/sec Ao V2 max: 111.3 cm/sec MV max P.4 mmHg MV P1/2t: 64.2 msec Ao max P.0 mmHg MV V2 mean: 65.7 cm/sec MV dec slope: 473.6 cm/sec2 Ao V2 mean: 76.8 cm/sec MV mean P.9 mmHg MVA(P1/2t): 3.4 cm2 Ao mean P.7 mmHg MV V2 VTI: 21.3 cm Ao V2 VTI: 21.9 cm AV (velocity ratio): 0.94 LV V1 max: 100.1 cm/sec PA V2 max: 85.2 cm/sec TR max gamaliel: 182.5 cm/sec LV V1 max P.0 mmHg TR max P.3 mmHg LV V1 mean P.2 mmHg LV V1 mean: 70.3 cm/sec LV V1 VTI: 20.6 cm ECHO/Echo Complete W/ Contrast Interpretation Summary Normal LV size. Left ventricular systolic function is normal. Mild (1+) tricuspid valve insufficiency. Contrast injection was performed. Ordering Physician: Danielle Davalos Referring Physician: Danielle Davalos Performed By: Bry Block RCS
== END | disposition home or self-care (01) ==
LOC: CVS 10:47
PROVIDERS: PCP Family Medicine; Referring Provider Nurse Practitioner Gerontology; Visit Provider Nurse Practitioner Gerontology
DX: I10 Essential (primary) hypertension (principal); R00.2 Palpitations
CPT/HCPCS: 93306; Q9957; A4216; C8929